=== PATIENT | female | born 1995 | race Caucasian/White ===

== ENCOUNTER 2024-04-13 17:32 | Emergency (ER) | payer OTHER, SELFPAY ==
--- NOTE | 2024-04-13 17:46 | ED.URI ---
HPI - URI/Sore Throat General Chief Complaint: Upper Respiratory Infection Stated Complaint: Throat/nausea Time Seen by Provider: 04/13/24 17:38 History of Present Illness HPI Narrative: Patient presents with a sore throat denies any fever or body aches no trouble swallowing no drooling. Related Data Home Medications Medication Instructions Recorded Confirmed norethindrone 1 mg-ethinyl 1 tablet PO DAILY 04/13/24 04/13/24 estradiol 20 mcg (24)-iron 75 mg (4) tablet (Aurovela 24 Fe) Allergies Allergy/AdvReac Type Severity Reaction Status Date / Time amoxicillin [From Augmentin] Allergy Intermediate Rash Verified 05/15/23 10:00 clavulanic acid Allergy Intermediate Rash Verified 05/15/23 10:00 [From Augmentin] morphine Allergy Intermediate Rash Verified 05/15/23 10:00 Penicillins Allergy Intermediate hives Verified 05/15/23 10:00 Review of Systems Review of Systems: CONSTITUTIONAL: Denies chills, or sweats. Reports fever and generalized body aches EYES: Denies visual changes, redness, or discharge. ENT: Denies otalgia. Reports nasal congestion runny nose and sore throat CARDIOVASCULAR: Denies chest pain, palpitations, or edema. RESPIRATORY: Denies dyspnea. Reports occasional cough GASTROINTESTINAL: Denies abdominal pain, nausea, vomiting, or diarrhea. GENITOURINARY: Denies dysuria or hematuria. SKIN: Denies rash or itching. MUSCULOSKELETAL: Denies back pain, joint pain, or myalgia. Reports generalized body aches NEUROLOGIC: Denies headache, numbness, or weakness. PSYCHIATRIC: Denies anxiety or depression. [facility] Past Medical History Medical History Asthma Hypertension Psoriasis Surgical History Surgical History History of tonsillectomy and adenoidectomy [place] teeth removed Family History Family History Other Hypertension Thyroid disease Social History Social History Smoking status: Current some day smoker Tobacco type: e-cigarettes/vaping Alcohol intake: current Alcohol use details: socially Substance use: never Substance use type: does not use Lack of Transportation: No Lack of Food: Never True Current Housing: I Have Housing Concerned About Future Housing: No Difficulty Paying Gas/Electric Bills: No Difficulty Paying for Meds: No Currently Unemployed: No Education: Trade/Vocational Certificate Living arrangements: with family Occupation/Education: occupation Additional occupation/education comments: [employer] Gender identity (if verbalized by the patient): Female Sexual Orientation (if Verbalized by the Patient): Straight or Heterosexual Comments At time of signature, agree with nursing past medical, surgical, social and family history. There is no relevant family history pertinent to the presenting complaint Exam Narrative: The patient is a well-developed, well-nourished in no acute distress. SKIN: Skin is warm and dry without erythema, swelling or exudate. There is good turgor. No tenting. HEAD: Atraumatic. Normocephalic. No temporal or scalp tenderness. EYES: Moist and bright. Sclera and conjunctivae normal. No discharge. PERRLA. Extraocular motions intact. Gross visual acuity intact. EARS: Pinna is normal shape and contour. Clear external auditory canals. TM pearly chavarria with good cone of light, no erythema or suppuration. Bilateral cerumen noted no gross hearing deficit. NOSE: pink, moist mucosa with good air movement. Clear rhinorrhea without nasal flaring. Septum midline. Mouth: moist mucous membranes. THROAT; mild erythema noted to posterior oropharynx with moderate postnasal drainage. Without exudate or ulceration.. Uvula midline. Normal movement of soft palate. NECK: Supple and nontender with full range of motion without
[2024-04-13 17:50] VITALS: BP 123/88; PULSE 98; RESP 16; TEMP 37.2; O2SAT 100
[2024-04-13 17:57] LABS: EDSTREPNEGPOS1 Presumptive Negative
== END 2024-04-13 18:05 | disposition home or self-care (01) ==
PROVIDERS: Emergency Provider Nurse Practitioner Family
DX: J02.9 Acute pharyngitis, unspecified (principal); F17.290 Nicotine dependence, other tobacco product, uncomplicated; J45.909 Unspecified asthma, uncomplicated; I10 Essential (primary) hypertension; L40.9 Psoriasis, unspecified
CPT/HCPCS: 87070; 87880; 99213; G0463

== ENCOUNTER 2024-09-18 15:35 | Outpatient (CLI) | payer OTHER, SELFPAY ==
[2024-09-18 16:04] LABS: Basophils Absolute Auto 0.1 K/mm3 (0.0-0.1); Basophils Percent Auto 0.5 % (0.2-1.2); Eosinophils Absolute Auto 0.2 K/mm3 (0-0.3); Eosinophils Percent Auto 1.3 % (0-4.4); Hematocrit 41.6 % (37.0-47.0); Hemoglobin 14.1 g/dL (12.0-15.0); Immature Granulocyte Absolute 0.12 K/mm3 (0.00-0.031); Immature Granulocyte Percent A 0.9 % (0-0.5); Lymphocytes Absolute Auto 2.86 K/mm3 (0.9-3.2); Lymphocytes Percent Auto 22.2 % (18.3-44.2); Mean Corpuscular HGB Conc 33.9 g/dl (32-36); Mean Corpuscular Hemoglobin 31.4 pg (26-34); Mean Corpuscular Volume 92.7 fl (80-100); Mean Platelet Volume 10.1 fl (7.4-10.4); Monocytes Absolute Auto 0.8 K/mm3 (0.1-0.6); Monocytes Percent Auto 5.8 % (2.6-8.5); Neutrophils Absolute Auto 8.9 K/mm3 (1.3-6.7); Neutrophils Percent Auto 69.3 % (45.5-73.1); Platelet Count Result 392 k/mm3 (150-375); Red Blood Count 4.49 M/mm3 (4.2-5.4); Red Cell Distribution Width 12.8 % (11.5-14.5); White Blood Count 12.9 K/mm3 (4.5-10.0)
[2024-09-18 16:15] LABS: Alanine Aminotransferase 21 U/L (6-35); Albumin Level 4.7 g/dL (3.5-5.1); Alkaline Phosphatase 61 U/L (38-126); Anion Gap 12 mmol/L (4-12); Aspartate Amino Transferase 22 U/L (14-36); Bilirubin,Total 0.4 mg/dL (0.2-1.3); Blood Urea Nitrogen 9 mg/dL (7-17); Calcium 9.7 mg/dL (8.4-10.2); Carbon Dioxide 21 mmol/L (22-30); Chloride 103 mmol/L (98-107); Estimated Glomerular Filt Rate > 60; Glucose 83 mg/dL (65-110); Potassium 3.7 mmol/L (3.4-5.0); Sodium 136 mmol/L (137-145); Uric Acid 2.4 mg/dL (2.5-7.5)
[2024-09-18 16:47] LABS: Hepatitis B Surface Antigen Negative (Negative); Rubella IgG Antibody 52.4 IU/ML
[2024-09-18 16:56] LABS: HIV 1/2 Ab P24 Ag Result Negative (Negative)
[2024-09-18 17:22] LABS: Thyroid Stimulating Hormone Reflex 0.577 uIU/mL (0.465-4.68)
[2024-09-19 07:49] LABS: Rapid Plasma Reagin Non-Reactive (NonReactive)
[2024-09-19 12:03] LABS: LH 0.2 mIU/mL
[2024-09-20 04:14] LABS: CMV IgG Antibody <0.60 U/mL
== END 2024-09-18 15:36 | disposition home or self-care (01) ==
PROVIDERS: PCP Nurse Practitioner Family; Visit Provider Obstetrics & Gynecology
DX: N94.89 Other specified conditions associated with female genital organs and menstrual cycle (principal); Z87.59 Personal history of other complications of pregnancy, childbirth and the puerperium
CPT/HCPCS: 36415; 80053; 83002; 84443; 84550; 84702; 85025; 86592; 86644; 86703; 86747; 86762; 86787; 86850; 86900; 86901; 87086; 87340; G0432

== ENCOUNTER 2024-11-18 08:37 | Emergency (ER) | payer OTHER, SELFPAY ==
[2024-11-18 08:41] VITALS: BP 130/87; PULSE 117; RESP 17; TEMP 36.4; O2SAT 100
[2024-11-18] MEDS: SODIUM CHLORIDE 0.9% IV 1,000 ML 999 ML IV CONT (08:57)
[2024-11-18] MEDS: ONDANSETRON INJ 4 MG/2 ML VIAL IV PUSH (08:57)
--- OUTSIDE RECORDS SUMMARY | 2024-11-18 08:59 | XMS_ITS | Data Portability ---
Author Organization [facility], Main Office Address [address] [place] [address] Assessment Encounter Date Assessment Date Assessment LastModified by Organization Details LastModified Time 07/24/2023 07/24/2023 [employer]- [employer]- 07/24/23 Call office if worse, ER if life-threatening illness RTC in 1 year and p.r.n. 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, [address], [place], [address], 08/05/2024 10:44:28 CMP, serum or plasma 2023 024 [email or web address] [facility], [address], [place], [address], 08/05/2024 10:44:29 lipid panel, serum 2023 024 [email or web address] [facility], [address], [place], [address], 08/20/2024 12:54:28 TSH + free T4, serum 2023 024 [email or web address] [facility], [address], [place], [address], 08/05/2024 10:44:31 vitamin D, 25-hydrox y, total, serum 2023 024 [employer] [facility], [address], [place], [address], 08/20/2024 12:54:29 hepatitis C virus Ab, serum 2023 024 [employer] [facility], [address], [place], [address], 08/20/2024 12:54:29 HbA1c (hemoglob in A1c), blood 2023 024 [employer] [facility], [address], [place], [address], 08/20/2024 12:54:29 lipid panel, serum 2022 023 NEELA Not available 07/24/2023 18:26:24 CMP, serum or plasma 2022 023 NEELA Not available 07/24/2023 18:26:22 CBC w/ auto diff 2022 023 NEELA Not available 07/24/2023 18:28:06 TSH + free T4, serum 2022 023 Not available 08/09/2023 14:34:54 vitamin B12 + folate, serum or blood 2022 023 Not available 08/09/2023 14:34:54 vitamin D, 25-hydrox y, total, serum 2022 023 Not available 08/09/2023 14:34:54 HbA1c (hemoglob in A1c), blood 2022 023 Not available 08/09/2023 14:34:54 Referral otolaryng ologist referral 2022 023 [email or web address] Slim Dykes MD, [address] [facility], [place], [address], 12/27/2023 09:08:37 dermatolo gist referral 2022 023 [email or web address] Clint Villanueva MD, [address] [facility], [address], [place], [address], 12/27/2023 09:08:38 Procedures None recorded. Surgeries None recorded. Imaging None recorded. Medication Orders None recorded. Patient TargetsNo targets recorded. Patient Instructions Encounter Date Encounter Id Patient Instructions Last Modified By Organization Details Last Modified Time 07/24/2023 [id number] INFLUENZA VACCIN E Recommended today, but patient declined TD/TDAP Recommended today, patient declined Ordered P atient will get at local pharmacy/health department MAMMOGRAM Recommended today, but patient declined Ordered N o screening indicated at this time/ no family history CERVICAL SCREENING/PELVIC EXAMINATION No screening necessary patient is up to date COLORECTAL SCREENING Recommended today, but patient declined Ordered C olonoscopy declined. Cologuard ordered No screening necessary until age 45 DEPRESSION SCREENING Negative BMI Overweight Appropr iate NUTRITION Continue healthy eating & exercise PHYSICAL ACTIVITY Appropriate Recommendation of 10-20 minutes of activity that causes mild breathlessness daily Recommendati on of 30 minutes of daily activity VISION Ordered Recommende d today ALCOHOL USE No alcohol use Occasional/Soc ial Use TOBACCO USE former smoker current tobacco use Patient is not interested in smoking cessation at this time- Handout given GLUCOSE SCREENING Ordered LIPID SCREENING Ordered [email or web address] Not available 07/24/2023 16:18:14 08/05/2024 [id number] Follow up in 6 months Obtain labs Tests: Referral: Recommend: Tetanus vaccine [email or web address] Not available 08/05/2024 10:36:17 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 0 Diabe aftou Boogiee rhonda Crite kayla: <5.7% Consi stent with absen ce of diabe fatou 5.7-6 .4% Consi stent with incre ased risk for diabe fatou (pred iabet es) >OR=6 .5% Consi stent with diabe fatou REFER ENCE: Diabe fatou Care 2016, 39([facility] ppl.1 ):s13 -s22 Not Available [facility] (Lab) [address] [place], [address], 07/23/2021 20:20:55 07/23/20 21 07/23/2021 TSH thyroid-stim ulating hormone 0.766 uIU/m L 0.465- 4.680 Not Available [facility] (Lab) [address] [place], [address], 07/23/2021 17:41:30 07/23/20 21 07/23/2021 T4 FREE free T4 1.07 NG/dL 0.78-2 .19 Not Available [facility] (Lab) [address] [place], [address], 07/23/2021 17:30:51 07/23/20 21 07/23/2021 VITAM IN D 25-HY DROXY [id number] 42.0 NG/mL 30-100 Vitam in D Statu s: Defic ient: <20 ng/mL Insuf ficie nt: 20-29 ng/mL Suffi cient : 30-10 0 ng/mL Not Available [facility] (Lab) [address] [place], [address], 07/23/2021 17:29:50 07/23/20 21 07/23/2021 LIPID PANEL cholesterol 160 mg/dL 140-19 9 NIH DEBBIE NSUS RECOM MENDA TION FOR ALBA STERO L: ADULT CHILD LOW RISK: <200 <170 BORDE RLINE : <200- 239 ----- HIGH RISK: >240 >200 Not Available [facility] (Lab) [address] [place], [address], 07/23/2021 17:16:36 07/23/20 21 07/23/2021 LIPID PANEL triglyceride s 131 mg/dL 0-150 NIH DEBBIE NSUS REPOR T RECOM MENDA TION FOR TRIGL YCERI BATOOL: ADULT CHILD LOW RISK: <150 ----- BODER LINE: 150-1 99 ----- HIGH RISK: >200 ----- Not Available [facility] (Lab) [address] [place], [address], 07/23/2021 17:16:36 07/23/20 21 07/23/2021 LIPID PANEL HDL cholesterol 49 mg/dL 40- Not Available [facility] (Lab) [address] [place], [address], 07/23/2021 17:16:36 07/23/20 21 07/23/2021 LIPID PANEL LDL cholesterol, calculated 85 mg/dL 0-130 NIH DEBBIE NSUS REPOR T RECOM MENDA TIONS FOR LDL: ADULT CHILD LOW RISK <130 <110 (OPTI MAL LDL) <100 ----- DOUGDE RLINE : 130-1 59 ----- HIGH RISK: >160 >130 A TRIGL YCERI DE RESUL T >400 INVAL IDATE S THE CALCU LATIO N FOR LDL FRACT IONAT ION - THE LDL RESUL T WILL NOT BE REPOR ARMOND. Not Available [facility] (Lab) [address] [place], [address], 07/23/2021 17:16:36 07/23/20 21 07/23/2021 COMPR EHENS LEONIDAS METAB OLIC PANEL sodium 143 mmol/ L 137-14 5 Not Available [facility] (Lab) [address] [place], [address], 07/23/2021 17:16:31 07/23/20 21 07/23/2021 COMPR EHENS LEONIDAS METAB OLIC PANEL potassium 4.1 mmol/ L 3.5-5. 1 Not Available [facility] (Lab) [address] [place], [address], 07/23/2021 17:16:31 07/23/20 21 07/23/2021 COMPR EHENS LEONIDAS METAB OLIC PANEL chloride 107 mmol/ L 98-107 Not Available [facility] (Lab) [address] [place], [address], 07/23/2021 17:16:31 07/23/20 21 07/23/2021 COMPR EHENS LEONIDAS METAB OLIC PANEL carbon dioxide 25 mmol/ L 22-30 Not Available [facility] (Lab) [address] [place], [address], 07/23/2021 17:16:31 07/23/20 21 07/23/2021 COMPR EHENS LEONIDAS METAB OLIC PANEL agap 15.1 mmol/ L 14-22 Not Available [facility] (Lab) [address] [place], [address], 07/23/2021 17:16:31 07/23/20 21 07/23/2021 COMPR EHENS LEONIDAS METAB OLIC PANEL glucose 77 mg/dL 70-99 Not Available [facility] (Lab) [address] [place], [address], 07/23/2021 17:16:31 07/23/20 21 07/23/2021 COMPR EHENS LEONIDAS METAB OLIC PANEL BUN 13 mg/dL 8-19 Not Available [facility] (Lab) [address] [place], [address], 07/23/2021 17:16:31 07/23/20 21 07/23/2021 COMPR EHENS LEONIDAS METAB OLIC PANEL creatinine 0.67 mg/dL 0.66-1 .25 Not Available [facility] (Lab) [address] [place], [address], 07/23/2021 17:16:31 07/23/20 21 07/23/2021 COMPR EHENS LEONIDAS METAB OLIC PANEL GFR >60 Refer ence Range : Redmon ge GFR Healt hy Adult : >60 mL/mi n/1.7 3 m2 Chron ic Kidne y Disea se: 15-60 mL/mi n/1.7 3 m2 Kidne y Failu re: <15/m L/min /1.73 m2 www.n iddk. nih.g ov The MDRD study equat ion has not been valid ated in child anjana <18 years of age; pregn ant women ; the elder ly >85 years of age; or in some racia l or ethni c subgr oups, such as Hispa nics. Outsi de the valid ated yojana eters , estim ated GFR is less accur ate, requi ring clini elizabeth judgm ent on a case- by-ca se basis . Clini elizabeth inter preta tion for other races and ages must be made by the clini lj. The MDRD study equat ion has not been valid ated for the evalu ation of serum creat inine relat ed to nutri vidya l statu s or medic ation usage . For perso ns <18 years of age, a pedia tric GFR calcu lator is avail able on the [facility] websi te: https ://smooth padron.alessandro boston.o connor/pr pebblesess ional s/kdo qi/gf r_cal culat or Not Available [facility] (Lab) [address] [place], [address], 07/23/2021 17:16:31 07/23/20 21 07/23/2021 COMPR EHENS LEONIDAS METAB OLIC PANEL alkaline phosphatase 64 U/L 38-126 Not Available [facility] (Lab) [address] [place], [address], 07/23/2021 17:16:31 07/23/20 21 07/23/2021 COMPR EHENS LEONIDAS METAB OLIC PANEL alanine aminotransfe rase 17 U/L 0-35 Not Available [facility] (Lab) [address] [place], [address], 07/23/2021 17:16:31 07/23/20 21 07/23/2021 COMPR EHENS LEONIDAS METAB OLIC PANEL aspartate aminotransfe rase 22 U/L 15-37 Not Available [facility] (Lab) [address] [place], [address], 07/23/2021 17:16:31 07/23/20 21 07/23/2021 COMPR EHENS LEONIDAS METAB OLIC PANEL bilirubin, total 0.30 mg/dL 0.20-1 .30 Not Available [facility] (Lab) [address] [place], [address], 07/23/2021 17:16:31 07/23/20 21 07/23/2021 COMPR EHENS LEONIDAS METAB OLIC PANEL calcium 10.4 mg/dL 8.4-10 .2 high Not Available [facility] (Lab) [address] [place], [address], 07/23/2021 17:16:31 07/23/20 21 07/23/2021 COMPR EHENS LEONIDAS METAB OLIC PANEL total protein 7.7 g/dL 6.3-8. 2 Not Available [facility] (Lab) [address] [place], [address], 07/23/2021 17:16:31 07/23/20 21 07/23/2021 COMPR EHENS LEONIDAS METAB OLIC PANEL albumin 4.8 g/dL 3.4-5. 0 Not Available [facility] (Lab) [address] [place], [address], 07/23/2021 17:16:31 07/23/20 21 07/23/2021 COMPR EHENS LEONIDAS METAB OLIC PANEL globulin 2.9 g/dL 2.6-4. 2 Not Available [facility] (Lab) [address] [place], [address], 07/23/2021 17:16:31 07/23/20 21 07/23/2021 COMPR EHENS LEONIDAS METAB OLIC PANEL A/G ratio 1.7 ratio 1.0-2. 0 Not Available [facility] (Lab) [address] [place], [address], 07/23/2021 17:16:31 07/23/20 21 07/23/2021 URINA LYSIS COMPL ETE/I RIS W/RFX color yellow Not Available [facility] (Lab) [address] [place], [address], 07/23/2021 16:46:45 07/23/20 21 07/23/2021 URINA LYSIS COMPL ETE/I RIS W/RFX appear turbid abnormal Not Available [facility] (Lab) [address] [place], [address], 07/23/2021 16:46:45 07/23/20 21 07/23/2021 URINA LYSIS COMPL ETE/I RIS W/RFX specific gravity 1.026 1.001- 1.030 Not Available [facility] (Lab) [address] [place], [address], 07/23/2021 16:46:45 07/23/20 21 07/23/2021 URINA LYSIS COMPL ETE/I RIS W/RFX pH 6.5 pH_un its 5.0-9. 0 Not Available [facility] (Lab) [address] [place], [address], 07/23/2021 16:46:45 07/23/20 21 07/23/2021 URINA LYSIS COMPL ETE/I RIS W/RFX leukocytes 75 jose/u L negati ve- abnormal Not Available [facility] (Lab) [address] [place], [address], 07/23/2021 16:46:45 07/23/20 21 07/23/2021 URINA LYSIS COMPL ETE/I RIS W/RFX nitrite negati ve negati ve- Not Available [facility] (Lab) [address] [place], [address], 07/23/2021 16:46:45 07/23/20 21 07/23/2021 URINA LYSIS COMPL ETE/I RIS W/RFX protein 10 mg/dL negati ve- abnormal Not Available [facility] (Lab) [address] [place], [address], 07/23/2021 16:46:45 07/23/20 21 07/23/2021 URINA LYSIS COMPL ETE/I RIS W/RFX glucose normal mg/dL normal - Not Available [facility] (Lab) [address] [place], [address], 07/23/2021 16:46:45 07/23/20 21 07/23/2021 URINA LYSIS COMPL ETE/I RIS W/RFX ketones negati ve mg/dL negati ve- Not Available [facility] (Lab) [address] [place], [address], 07/23/2021 16:46:45 07/23/20 21 07/23/2021 URINA LYSIS COMPL ETE/I RIS W/RFX urobilinogen normal mg/dL normal - Not Available [facility] (Lab) [address] [place], [address], 07/23/2021 16:46:45 07/23/20 21 07/23/2021 URINA LYSIS COMPL ETE/I RIS W/RFX bilirubin negati ve mg/dL negati ve- Not Available [facility] (Lab) [address] [place], [address], 07/23/2021 16:46:45 07/23/20 21 07/23/2021 URINA LYSIS COMPL ETE/I RIS W/RFX blood negati ve mg/dL negati ve- Not Available [facility] (Lab) [address] [place], [address], 07/23/2021 16:46:45 07/23/20 21 07/23/2021 URINA LYSIS COMPL ETE/I RIS W/RFX white blood cells 0-8 /i??h pfi?? 0-8 Not Available [facility] (Lab) [address] [place], [address], 07/23/2021 16:46:45 07/23/20 21 07/23/2021 URINA LYSIS COMPL ETE/I RIS W/RFX red blood cells 5-10 /i??h pfi?? 0-4 abnormal Not Available [facility] (Lab) [address] [place], [address], 07/23/2021 16:46:45 07/23/20 21 07/23/2021 URINA LYSIS COMPL ETE/I RIS W/RFX bacteria many abnormal Not Available [facility] (Lab) [address] [place], [address], 07/23/2021 16:46:45 07/23/20 21 07/23/2021 URINA LYSIS COMPL ETE/I RIS W/RFX mucous few /i??l pfi?? abnormal Not Available [facility] (Lab) [address] [place], [address], 07/23/2021 16:46:45 07/23/20 21 07/23/2021 URINA LYSIS COMPL ETE/I RIS W/RFX squamous epithelial packed field /i??l pfi?? abnormal Not Available [facility] (Lab) [address] [facility] [place], [address], 07/23/2021 16:46:45 07/23/20 21 07/23/2021 URINA LYSIS COMPL ETE/I RIS W/RFX budding yeast occasi onal /i??h pfi?? abnormal Not Available [facility] (Lab) [address] [place], [address], 07/23/2021 16:46:45 07/23/20 21 07/23/2021 CBC/C OMPLE TE BLD COUNT W/DIF F white blood cells 9.9 x10'3 /uL 4.2-10 .8 Not Available [facility] (Lab) [address] [place], [address], 07/23/2021 16:33:19 07/23/20 21 07/23/2021 CBC/C OMPLE TE BLD COUNT W/DIF F red blood cells 4.65 x10'6 /uL 3.80-5 .20 Not Available [facility] (Lab) [address] [place], [address], 07/23/2021 16:33:19 07/23/20 21 07/23/2021 CBC/C OMPLE TE BLD COUNT W/DIF F hemoglobin 14.4 g/dL 12.0-1 5.6 Not Available [facility] (Lab) [address] [place], [address], 07/23/2021 16:33:19 07/23/20 21 07/23/2021 CBC/C OMPLE TE BLD COUNT W/DIF F hematocrit 42.7 % 35.7-4 5.7 Not Available [facility] (Lab) [address] [place], [address], 07/23/2021 16:33:19 07/23/20 21 07/23/2021 CBC/C OMPLE TE BLD COUNT W/DIF F mean red cell volume 91.8 fL 82.0-9 9.0 Not Available [facility] (Lab) [address] [place], [address], 07/23/2021 16:33:19 07/23/20 21 07/23/2021 CBC/C OMPLE TE BLD COUNT W/DIF F mean red cell hemoglobin 31.0 pg 27.0-3 3.0 Not Available [facility] (Lab) [address] [place], [address], 07/23/2021 16:33:19 07/23/20 21 07/23/2021 CBC/C OMPLE TE BLD COUNT W/DIF F mean RBC HGB concentratio n 33.7 g/dL 31.0-3 6.0 Not Available [facility] (Lab) [address] [place], [address], 07/23/2021 16:33:19 07/23/20 21 07/23/2021 CBC/C OMPLE TE BLD COUNT W/DIF F red cell distribution width 12.4 % 11.8-1 5.5 Not Available [facility] (Lab) [address] [place], [address], 07/23/2021 16:33:19 07/23/20 21 07/23/2021 CBC/C OMPLE TE BLD COUNT W/DIF F platelets 485 x10'3 /uL 150-40 0 high Not Available [facility] (Lab) [address] [place], [address], 07/23/2021 16:33:19 07/23/20 21 07/23/2021 CBC/C OMPLE TE BLD COUNT W/DIF F mean platelet volume 10.8 fL 9.0-12 .4 Not Available [facility] (Lab) [address] [place], [address], 07/23/2021 16:33:19 07/23/20 21 07/23/2021 CBC/C OMPLE TE BLD COUNT W/DIF F neutrophils 51.6 % 39.0-7 2.0 Not Available [facility] (Lab) [address] [place], [address], 07/23/2021 16:33:19 07/23/20 21 07/23/2021 CBC/C OMPLE TE BLD COUNT W/DIF F lymphocytes 36.8 % 16.0-4 7.0 Not Available [facility] (Lab) [address] [place], [address], 07/23/2021 16:33:19 07/23/20 21 07/23/2021 CBC/C OMPLE TE BLD COUNT W/DIF F monocytes 6.3 % 5.0-12 .0 Not Available [facility] (Lab) [address] [place], [address], 07/23/2021 16:33:19 07/23/20 21 07/23/2021 CBC/C OMPLE TE BLD COUNT W/DIF F eosinophils 4.2 % 1.0-7. 0 Not Available [facility] (Lab) [address] [place], [address], 07/23/2021 16:33:19 07/23/20 21 07/23/2021 CBC/C OMPLE TE BLD COUNT W/DIF F basophils 0.8 % 0.0-2. 0 Not Available [facility] (Lab) [address] [place], [address], 07/23/2021 16:33:19 07/23/20 21 07/23/2021 CBC/C OMPLE TE BLD COUNT W/DIF F immature granulocytes 0.3 % 0.00-0 .50 Not Available [facility] (Lab) [address] [place], [address], 07/23/2021 16:33:19 07/23/20 21 07/23/2021 CBC/C OMPLE TE BLD COUNT W/DIF F neutrophils, absolute count 5.11 x10'3 /uL 1.5-8. 0 Not Available [facility] (Lab) [address] [place], [address], 07/23/2021 16:33:19 07/23/20 21 07/23/2021 CBC/C OMPLE TE BLD COUNT W/DIF F lymphocytes, absolute count 3.65 x10'3 /uL 1.07-3 .43 high Not Available [facility] (Lab) [address] [place], [address], 07/23/2021 16:33:19 07/23/20 21 07/23/2021 CBC/C OMPLE TE BLD COUNT W/DIF F monocytes, absolute count 0.62 x10'3 /uL 0.29-0 .99 Not Available [facility] (Lab) [address] [place], [address], 07/23/2021 16:33:19 07/23/20 21 07/23/2021 CBC/C OMPLE TE BLD COUNT W/DIF F eosinophils, absolute count 0.42 x10'3 /uL 0.02-0 .53 Not Available [facility] (Lab) [address] [place], [address], 07/23/2021 16:33:19 07/23/20 21 07/23/2021 CBC/C OMPLE TE BLD COUNT W/DIF F basophils, absolute count 0.08 x10'3 /uL 0.01-0 .08 Not Available [facility] (Lab) [address] [place], [address], 07/23/2021 16:33:19 07/23/20 21 07/23/2021 CBC/C OMPLE TE BLD COUNT W/DIF F immature granulocytes ,absolute 0.03 x10'3 /uL 0.00-0 .05 Not Available [facility] (Lab) [address] [place], [address], 07/23/2021 16:33:19 07/23/20 21 07/23/2021 CBC/C OMPLE TE BLD COUNT W/DIF F nucleated red blood cells 0.0 % -0 Not Available [facility] (Lab) [address] [place], [address], 07/23/2021 16:33:19 07/23/20 21 07/23/2021 CBC/C OMPLE TE BLD COUNT W/DIF F NRBC# 0.00 x10'3 /uL Not Available [facility] (Lab) [address] [place], [address], 07/23/2021 16:33:19 07/18/20 22 07/18/2022 HEMOG LOBIN A1C HA1C 4.6 % 4.0-6. 0 Diabe fatou Scree rhonda Crite kayla: <5.7% Consi stent with absen ce of diabe fatou 5.7-6 .4% Consi stent with incre ased risk for diabe fatou (pred iabet es) >OR=6 .5% Consi stent with diabe fatou REFER ENCE: Diabe fatou Care 2016, 39([facility] ppl.1 ):s13 -s22 Not Available [facility] (Lab) [address] [place], [address], 07/18/2022 20:26:20 07/18/20 22 07/18/2022 VITAM IN D 25-HY DROXY vd25oh 26.0 NG/mL 30-100 low Vitam in D Statu s: Defic ient: <20 ng/mL Insuf ficie nt: 20-29 ng/mL Suffi cient : 30-10 0 ng/mL Not Available [facility] (Lab) [address] [place], [address], 07/18/2022 19:16:51 07/18/20 22 07/18/2022 TSH W/REF GT FT4 TSH with reflex free T4 0.876 uIU/m L 0.465- 4.680 Not Available [facility] (Lab) [address] [place], [address], 07/18/2022 19:00:27 07/18/20 22 07/18/2022 URINA LYSIS COMPL ETE/I RIS W/RFX color light- yellow Not Available [facility] (Lab) [address] [place], [address], 07/18/2022 18:42:33 07/18/20 22 07/18/2022 URINA LYSIS COMPL ETE/I RIS W/RFX appear clear Not Available [facility] (Lab) [address] [place], [address], 07/18/2022 18:42:33 07/18/20 22 07/18/2022 URINA LYSIS COMPL ETE/I RIS W/RFX specific gravity 1.028 1.001- 1.030 Not Available [facility] (Lab) [address] [place], [address], 07/18/2022 18:42:33 07/18/20 22 07/18/2022 URINA LYSIS COMPL ETE/I RIS W/RFX pH 6.0 pH_un its 5.0-9. 0 Not Available [facility] (Lab) [address] [place], [address], 07/18/2022 18:42:33 07/18/20 22 07/18/2022 URINA LYSIS COMPL ETE/I RIS W/RFX leukocytes negati ve jose/u L negati ve- Not Available [facility] (Lab) [address] [place], [address], 07/18/2022 18:42:33 07/18/20 22 07/18/2022 URINA LYSIS COMPL ETE/I RIS W/RFX nitrite negati ve negati ve- Not Available [facility] (Lab) [address] [place], [address], 07/18/2022 18:42:33 07/18/20 22 07/18/2022 URINA LYSIS COMPL ETE/I RIS W/RFX protein negati ve mg/dL negati ve- Not Available [facility] (Lab) [address] [place], [address], 07/18/2022 18:42:33 07/18/20 22 07/18/2022 URINA LYSIS COMPL ETE/I RIS W/RFX glucose normal mg/dL normal - Not Available [facility] (Lab) [address] [place], [address], 07/18/2022 18:42:33 07/18/20 22 07/18/2022 URINA LYSIS COMPL ETE/I RIS W/RFX ketones negati ve mg/dL negati ve- Not Available [facility] (Lab) [address] [place], [address], 07/18/2022 18:42:33 07/18/20 22 07/18/2022 URINA LYSIS COMPL ETE/I RIS W/RFX urobilinogen normal mg/dL normal - Not Available [facility] (Lab) [address] [place], [address], 07/18/2022 18:42:33 07/18/20 22 07/18/2022 URINA LYSIS COMPL ETE/I RIS W/RFX bilirubin negati ve mg/dL negati ve- Not Available [facility] (Lab) [address] [place], [address], 07/18/2022 18:42:33 07/18/20 22 07/18/2022 URINA LYSIS COMPL ETE/I RIS W/RFX blood 0.03 mg/dL negati ve- abnormal Not Available [facility] (Lab) [address] [place], [address], 07/18/2022 18:42:33 07/18/20 22 07/18/2022 URINA LYSIS COMPL ETE/I RIS W/RFX white blood cells 0-8 /i??h pfi?? 0-8 Not Available [facility] (Lab) [address] [place], [address], 07/18/2022 18:42:33 07/18/20 22 07/18/2022 URINA LYSIS COMPL ETE/I RIS W/RFX red blood cells 0-4 /i??h pfi?? 0-4 Not Available [facility] (Lab) [address] [place], [address], 07/18/2022 18:42:33 07/18/20 22 07/18/2022 URINA LYSIS COMPL ETE/I RIS W/RFX bacteria none Not Available [facility] (Lab) [address] [place], [address], 07/18/2022 18:42:33 07/18/20 22 07/18/2022 URINA LYSIS COMPL ETE/I RIS W/RFX mucous occasi onal /i??l pfi?? abnormal Not Available [facility] (Lab) [address] [place], [address], 07/18/2022 18:42:33 07/18/20 22 07/18/2022 URINA LYSIS COMPL ETE/I RIS W/RFX squamous epithelial few /i??l pfi?? abnormal Not Available [facility] (Lab) [address] [place], [address], 07/18/2022 18:42:33 07/18/20 22 07/18/2022 LIPID PANEL cholesterol 158 mg/dL 140-19 9 NIH DEBBIE NSUS RECOM MENDA TION FOR ALBA STERO L: ADULT CHILD LOW RISK: <200 <170 BORDE RLINE : <200- 239 ----- HIGH RISK: >240 >200 Not Available [facility] (Lab) [address] [place], [address], 07/18/2022 18:39:28 07/18/20 22 07/18/2022 LIPID PANEL triglyceride s 195 mg/dL 0-150 high NIH DEBBIE NSUS REPOR T RECOM MENDA TION FOR TRIGL YCERI BATOOL: ADULT CHILD LOW RISK: <150 ----- BODER LINE: 150-1 99 ----- HIGH RISK: >200 ----- Not Available [facility] (Lab) [address] [place], [address], 07/18/2022 18:39:28 07/18/20 22 07/18/2022 LIPID PANEL HDL cholesterol 50 mg/dL 40- Not Available [facility] (Lab) [address] [place], [address], 07/18/2022 18:39:28 07/18/20 22 07/18/2022 LIPID PANEL LDL cholesterol, calculated 69 mg/dL 0-130 NIH DEBBIE NSUS REPOR T RECOM MENDA TIONS FOR LDL: ADULT CHILD LOW RISK <130 <110 (OPTI MAL LDL) <100 ----- KAREN RLINE : 130-1 59 ----- HIGH RISK: >160 >130 A TRIGL YCERI DE RESUL T >400 INVAL IDATE S THE CALCU LATIO N FOR LDL FRACT IONAT ION - THE LDL RESUL T WILL NOT BE REPOR ARMOND. Not Available [facility] (Lab) [address] [place], [address], 07/18/2022 18:39:28 07/18/20 22 07/18/2022 COMPR EHENS LEONIDAS METAB OLIC PANEL sodium 139 mmol/ L 137-14 5 Not Available [facility] (Lab) [address] [place], [address], 07/18/2022 18:39:24 07/18/20 22 07/18/2022 COMPR EHENS LEONIDAS METAB OLIC PANEL potassium 4.1 mmol/ L 3.5-5. 1 Not Available [facility] (Lab) [address] [place], [address], 07/18/2022 18:39:24 07/18/20 22 07/18/2022 COMPR EHENS LEONIDAS METAB OLIC PANEL chloride 104 mmol/ L 98-107 Not Available [facility] (Lab) [address] [place], [address], 07/18/2022 18:39:24 07/18/20 22 07/18/2022 COMPR EHENS LEONIDAS METAB OLIC PANEL carbon dioxide 26 mmol/ L 22-30 Not Available [facility] (Lab) [address] [place], [address], 07/18/2022 18:39:24 07/18/20 22 07/18/2022 COMPR EHENS LEONIDAS METAB OLIC PANEL anion gap 13.1 mmol/ L 14-22 low Not Available [facility] (Lab) [address] [place], [address], 07/18/2022 18:39:24 07/18/20 22 07/18/2022 COMPR EHENS LEONIDAS METAB OLIC PANEL glucose 78 mg/dL 70-99 Not Available [facility] (Lab) [address] [place], [address], 07/18/2022 18:39:24 07/18/20 22 07/18/2022 COMPR EHENS LEONIDAS METAB OLIC PANEL BUN 14 mg/dL 8-19 Not Available [facility] (Lab) [address] [place], [address], 07/18/2022 18:39:24 07/18/20 22 07/18/2022 COMPR EHENS LEONIDAS METAB OLIC PANEL creatinine 0.61 mg/dL 0.66-1 .25 low Not Available [facility] (Lab) [address] [place], [address], 07/18/2022 18:39:24 07/18/20 22 07/18/2022 COMPR EHENS LEONIDAS METAB OLIC PANEL GFR >60 Refer ence Range : Redmon ge GFR Healt hy Adult : >60 mL/mi n/1.7 3 m2 Chron ic Kidne y Disea se: 15-60 mL/mi n/1.7 3 m2 Kidne y Failu re: <15/m L/min /1.73 m2 www.n iddk. nih.g ov The MDRD study equat ion has not been valid ated in child anjana <18 years of age; pregn ant women ; the elder ly >85 years of age; or in some racia l or ethni c subgr oups, such as Hispa nics. Outsi de the valid ated yojana eters , estim ated GFR is less accur ate, requi ring clini elizabeth judgm ent on a case- by-ca se basis . Clini elizabeth inter preta tion for other races and ages must be made by the clini lj. The MDRD study equat ion has not been valid ated for the evalu ation of serum creat inine relat ed to nutri vidya l statu s or medic ation usage . For perso ns <18 years of age, a pedia tric GFR calcu lator is avail able on the [facility] websi te: https :[email or web address] [email or web address] boston.o rg/pr ofess ional s/kdo qi/gf r_cal culat or Not Available [facility] (Lab) [address] [place], [address], 07/18/2022 18:39:24 07/18/20 22 07/18/2022 COMPR EHENS LEONIDAS METAB OLIC PANEL alkaline phosphatase 53 U/L 38-126 Not Available [facility] (Lab) [address] [place], [address], 07/18/2022 18:39:24 07/18/20 22 07/18/2022 COMPR EHENS LEONIDAS METAB OLIC PANEL alanine aminotransfe rase 21 U/L 0-35 Not Available [facility] (Lab) [address] [place], [address], 07/18/2022 18:39:24 07/18/20 22 07/18/2022 COMPR EHENS LEONIDAS METAB OLIC PANEL aspartate aminotransfe rase 24 U/L 15-37 Not Available [facility] (Lab) [address] [place], [address], 07/18/2022 18:39:24 07/18/20 22 07/18/2022 COMPR EHENS LEONIDAS METAB OLIC PANEL bilirubin, total 0.50 mg/dL 0.20-1 .30 Not Available [facility] (Lab) [address] [place], [address], 07/18/2022 18:39:24 07/18/20 22 07/18/2022 COMPR EHENS LEONIDAS METAB OLIC PANEL calcium 9.7 mg/dL 8.4-10 .2 Not Available [facility] (Lab) [address] [place], [address], 07/18/2022 18:39:24 07/18/20 22 07/18/2022 COMPR EHENS LEONIDAS METAB OLIC PANEL total protein 7.9 g/dL 6.3-8. 2 Not Available [facility] (Lab) [address] [place], [address], 07/18/2022 18:39:24 07/18/20 22 07/18/2022 COMPR EHENS LEONIDAS METAB OLIC PANEL albumin 4.7 g/dL 3.4-5. 0 Not Available [facility] (Lab) [address] [place], [address], 07/18/2022 18:39:24 07/18/20 22 07/18/2022 COMPR EHENS LEONIDAS METAB OLIC PANEL globulin 3.2 g/dL 2.6-4. 2 Not Available [facility] (Lab) [address] [place], [address], 07/18/2022 18:39:24 07/18/20 22 07/18/2022 COMPR EHENS LEONIDAS METAB OLIC PANEL A/G ratio 1.5 ratio 1.0-2. 0 Not Available [facility] (Lab) [address] [place], [address], 07/18/2022 18:39:24 07/18/20 22 07/18/2022 CBC/C OMPLE TE BLD COUNT W/DIF F white blood cells 8.7 x10'3 /uL 4.2-10 .8 Not Available [facility] (Lab) [address] [place], [address], 07/18/2022 18:12:51 07/18/20 22 07/18/2022 CBC/C OMPLE TE BLD COUNT W/DIF F red blood cells 4.52 x10'6 /uL 3.80-5 .20 Not Available [facility] (Lab) [address] [place], [address], 07/18/2022 18:12:51 07/18/20 22 07/18/2022 CBC/C OMPLE TE BLD COUNT W/DIF F hemoglobin 14.0 g/dL 12.0-1 5.6 Not Available [facility] (Lab) [address] [place], [address], 07/18/2022 18:12:51 07/18/20 22 07/18/2022 CBC/C OMPLE TE BLD COUNT W/DIF F hematocrit 42.2 % 35.7-4 5.7 Not Available [facility] (Lab) [address] [place], [address], 07/18/2022 18:12:51 07/18/20 22 07/18/2022 CBC/C OMPLE TE BLD COUNT W/DIF F mean red cell volume 93.4 fL 82.0-9 9.0 Not Available [facility] (Lab) [address] [place], [address], 07/18/2022 18:12:51 07/18/20 22 07/18/2022 CBC/C OMPLE TE BLD COUNT W/DIF F mean red cell hemoglobin 31.0 pg 27.0-3 3.0 Not Available [facility] (Lab) [address] [place], [address], 07/18/2022 18:12:51 07/18/20 22 07/18/2022 CBC/C OMPLE TE BLD COUNT W/DIF F mean RBC HGB concentratio n 33.2 g/dL 31.0-3 6.0 Not Available [facility] (Lab) [address] [place], [address], 07/18/2022 18:12:51 07/18/20 22 07/18/2022 CBC/C OMPLE TE BLD COUNT W/DIF F red cell distribution width 12.7 % 11.8-1 5.5 Not Available [facility] (Lab) [address] [place], [address], 07/18/2022 18:12:51 07/18/20 22 07/18/2022 CBC/C OMPLE TE BLD COUNT W/DIF F platelets 445 x10'3 /uL 150-40 0 high Not Available [facility] (Lab) [address] [place], [address], 07/18/2022 18:12:51 07/18/20 22 07/18/2022 CBC/C OMPLE TE BLD COUNT W/DIF F mean platelet volume 11.0 fL 9.0-12 .4 Not Available [facility] (Lab) [address] [place], [address], 07/18/2022 18:12:51 07/18/20 22 07/18/2022 CBC/C OMPLE TE BLD COUNT W/DIF F neutrophils 53.7 % 39.0-7 2.0 Not Available [facility] (Lab) [address] [place], [address], 07/18/2022 18:12:51 07/18/20 22 07/18/2022 CBC/C OMPLE TE BLD COUNT W/DIF F lymphocytes 34.6 % 16.0-4 7.0 Not Available [facility] (Lab) [address] [place], [address], 07/18/2022 18:12:51 07/18/20 22 07/18/2022 CBC/C OMPLE TE BLD COUNT W/DIF F monocytes 5.9 % 5.0-12 .0 Not Available [facility] (Lab) [address] [place], [address], 07/18/2022 18:12:51 07/18/20 22 07/18/2022 CBC/C OMPLE TE BLD COUNT W/DIF F eosinophils 4.8 % 1.0-7. 0 Not Available [facility] (Lab) [address] [place], [address], 07/18/2022 18:12:51 07/18/20 22 07/18/2022 CBC/C OMPLE TE BLD COUNT W/DIF F basophils 0.7 % 0.0-2. 0 Not Available [facility] (Lab) [address] [place], [address], 07/18/2022 18:12:51 07/18/20 22 07/18/2022 CBC/C OMPLE TE BLD COUNT W/DIF F immature granulocytes 0.3 % 0.00-0 .50 Not Available [facility] (Lab) [address] [place], [address], 07/18/2022 18:12:51 07/18/20 22 07/18/2022 CBC/C OMPLE TE BLD COUNT W/DIF F neutrophils, absolute count 4.65 x10'3 /uL 1.5-8. 0 Not Available [facility] (Lab) [address] [place], [address], 07/18/2022 18:12:51 07/18/20 22 07/18/2022 CBC/C OMPLE TE BLD COUNT W/DIF F lymphocytes, absolute count 3.00 x10'3 /uL 1.07-3 .43 Not Available [facility] (Lab) [address] [place], [address], 07/18/2022 18:12:51 07/18/20 22 07/18/2022 CBC/C OMPLE TE BLD COUNT W/DIF F monocytes, absolute count 0.51 x10'3 /uL 0.29-0 .99 Not Available [facility] (Lab) [address] [place], [address], 07/18/2022 18:12:51 07/18/20 22 07/18/2022 CBC/C OMPLE TE BLD COUNT W/DIF F eosinophils, absolute count 0.42 x10'3 /uL 0.02-0 .53 Not Available [facility] (Lab) [address] [place], [address], 07/18/2022 18:12:51 07/18/20 22 07/18/2022 CBC/C OMPLE TE BLD COUNT W/DIF F basophils, absolute count 0.06 x10'3 /uL 0.01-0 .08 Not Available [facility] (Lab) [address] [place], [address], 07/18/2022 18:12:51 07/18/20 22 07/18/2022 CBC/C OMPLE TE BLD COUNT W/DIF F immature granulocytes ,absolute 0.03 x10'3 /uL 0.00-0 .05 Not Available [facility] (Lab) [address] [place], [address], 07/18/2022 18:12:51 07/18/20 22 07/18/2022 CBC/C OMPLE TE BLD COUNT W/DIF F nucleated red blood cells 0.0 % -0 Not Available [facility] (Lab) [address] [place], [address], 07/18/2022 18:12:51 07/18/20 22 07/18/2022 CBC/C OMPLE TE BLD COUNT W/DIF F NRBC# 0.00 x10'3 /uL Not Available [facility] (Lab) [address] [place], [address], 07/18/2022 18:12:51 07/24/20 23 07/24/2023 COMPR EHENS LEONIDAS METAB OLIC PANEL sodium 141 mmol/ L 137-14 5 Not Available [facility] (Lab) [address] [place], [address], 07/24/2023 18:26:21 07/24/20 23 07/24/2023 COMPR EHENS LEONIDAS METAB OLIC PANEL potassium 4.1 mmol/ L 3.5-5. 1 Not Available [facility] (Lab) [address] [place], [address], 07/24/2023 18:26:21 07/24/20 23 07/24/2023 COMPR EHENS LEONIDAS METAB OLIC PANEL chloride 105 mmol/ L 98-107 Not Available [facility] (Lab) [address] [place], [address], 07/24/2023 18:26:21 07/24/20 23 07/24/2023 COMPR EHENS LEONIDAS METAB OLIC PANEL carbon dioxide 24 mmol/ L 22-30 Not Available [facility] (Lab) [address] [place], [address], 07/24/2023 18:26:21 07/24/20 23 07/24/2023 COMPR EHENS LEONIDAS METAB OLIC PANEL anion gap 16.1 mmol/ L 14-22 Not Available [facility] (Lab) [address] [place], [address], 07/24/2023 18:26:21 07/24/20 23 07/24/2023 COMPR EHENS LEONIDAS METAB OLIC PANEL glucose 92 mg/dL 70-99 Not Available [facility] (Lab) [address] [place], [address], 07/24/2023 18:26:21 07/24/20 23 07/24/2023 COMPR EHENS LEONIDAS METAB OLIC PANEL BUN 8 mg/dL 8-19 Not Available [facility] (Lab) [address] [place], [address], 07/24/2023 18:26:21 07/24/20 23 07/24/2023 COMPR EHENS LEONIDAS METAB OLIC PANEL creatinine 0.54 mg/dL 0.66-1 .25 low Not Available [facility] (Lab) [address] [place], [address], 07/24/2023 18:26:21 07/24/20 23 07/24/2023 COMPR EHENS LEONIDAS METAB OLIC PANEL GFR >60 Refer ence Range : Redmon ge GFR Healt hy Adult : >60 mL/mi n/1.7 3 m2 Chron ic Kidne y Disea se: 15-60 mL/mi n/1.7 3 m2 Kidne y Failu re: <15/m L/min /1.73 m2 www.n iddk. nih.g ov The MDRD study equat ion has not been valid ated in child anjana <18 years of age; pregn ant women ; the elder ly >85 years of age; or in some racia l or ethni c subgr oups, such as [facility] nics. Outsi de the valid ated yojana eters , estim ated GFR is less accur ate, requi ring clini elizabeth judgm ent on a case- by-ca se basis . Clini elizabeth inter preta tion for other races and ages must be made by the clini lj. The MDRD study equat ion has not been valid ated for the evalu ation of serum creat inine relat ed to nutri vidya l statu s or medic ation usage . For perso ns <18 years of age, a pedia tric GFR calcu lator is avail able on the [facility] websi te: https :[email or web address] yaya boston.o rg/pr ofess ional s/kdo qi/gf r_cal culat or Not Available [facility] (Lab) [address] [place], [address], 07/24/2023 18:26:21 07/24/20 23 07/24/2023 COMPR EHENS LEONIDAS METAB OLIC PANEL alkaline phosphatase 50 U/L 38-126 Not Available [facility] (Lab) [address] [place], [address], 07/24/2023 18:26:21 07/24/20 23 07/24/2023 COMPR EHENS LEONIDAS METAB OLIC PANEL alanine aminotransfe rase 19 U/L 0-35 Not Available [facility] (Lab) [address] [place], [address], 07/24/2023 18:26:21 07/24/20 23 07/24/2023 COMPR EHENS LEONIDAS METAB OLIC PANEL aspartate aminotransfe rase 22 U/L 15-37 Not Available [facility] (Lab) [address] [place], [address], 07/24/2023 18:26:21 07/24/20 23 07/24/2023 COMPR EHENS LEONIDAS METAB OLIC PANEL bilirubin, total 0.30 mg/dL 0.20-1 .30 Not Available [facility] (Lab) [address] [place], [address], 07/24/2023 18:26:21 07/24/20 23 07/24/2023 COMPR EHENS LEONIDAS METAB OLIC PANEL calcium 10.0 mg/dL 8.4-10 .2 Not Available [facility] (Lab) [address] [place], [address], 07/24/2023 18:26:21 07/24/20 23 07/24/2023 COMPR EHENS LEONIDAS METAB OLIC PANEL total protein 7.9 g/dL 6.3-8. 2 Not Available [facility] (Lab) [address] [place], [address], 07/24/2023 18:26:21 07/24/20 23 07/24/2023 COMPR EHENS LEONIDAS METAB OLIC PANEL albumin 4.5 g/dL 3.4-5. 0 Not Available [facility] (Lab) [address] [place], [address], 07/24/2023 18:26:21 07/24/20 23 07/24/2023 COMPR EHENS LEONIDAS METAB OLIC PANEL globulin 3.4 g/dL 2.6-4. 2 Not Available [facility] (Lab) [address] [place], [address], 07/24/2023 18:26:21 07/24/20 23 07/24/2023 COMPR EHENS LEONIDAS METAB OLIC PANEL A/G ratio 1.3 ratio 1.0-2. 0 Not Available [facility] (Lab) [address] [place], [address], 07/24/2023 18:26:21 07/24/20 23 07/24/2023 LIPID PANEL cholesterol 171 mg/dL 140-19 9 NIH DEBBIE NSUS RECOM MENDA TION FOR ALBA STERO L: ADULT CHILD LOW RISK: <200 <170 BORDE RLINE : <200- 239 ----- HIGH RISK: >240 >200 Not Available [facility] (Lab) [address] [place], [address], 07/24/2023 18:26:24 07/24/20 23 07/24/2023 LIPID PANEL triglyceride s 206 mg/dL 0-150 high NIH DEBBIE NSUS REPOR T RECOM MENDA TION FOR TRIGL YCERI BATOOL: ADULT CHILD LOW RISK: <150 ----- BODER LINE: 150-1 99 ----- HIGH RISK: >200 ----- Not Available [facility] (Lab) [address] [place], [address], 07/24/2023 18:26:24 07/24/20 23 07/24/2023 LIPID PANEL HDL cholesterol 48 mg/dL 40- Not Available [facility] (Lab) [address] [place], [address], 07/24/2023 18:26:24 07/24/20 23 07/24/2023 LIPID PANEL LDL cholesterol, calculated 82 mg/dL 0-130 NIH DEBBIE NSUS REPOR T RECOM MENDA TIONS FOR LDL: ADULT CHILD LOW RISK <130 <110 (OPTI MAL LDL) <100 ----- BORDE RLINE : 130-1 59 ----- HIGH RISK: >160 >130 A TRIGL YCERI DE RESUL T >400 INVAL IDATE S THE CALCU LATIO N FOR LDL FRACT IONAT ION - THE LDL RESUL T WILL NOT BE REPOR ARMOND. Not Available [facility] (Lab) [address] [place], [address], 07/24/2023 18:26:24 07/24/20 23 07/24/2023 CBC/C OMPLE TE BLD COUNT W/DIF F white blood cells 9.4 x10'3 /uL 4.2-10 .8 Not Available [facility] (Lab) [address] [place], [address], 07/24/2023 18:28:06 07/24/20 23 07/24/2023 CBC/C OMPLE TE BLD COUNT W/DIF F red blood cells 4.43 x10'6 /uL 3.80-5 .20 Not Available [facility] (Lab) [address] [place], [address], 07/24/2023 18:28:06 07/24/20 23 07/24/2023 CBC/C OMPLE TE BLD COUNT W/DIF F hemoglobin 14.2 g/dL 12.0-1 5.6 Not Available [facility] (Lab) [address] [place], [address], 07/24/2023 18:28:06 07/24/20 23 07/24/2023 CBC/C OMPLE TE BLD COUNT W/DIF F hematocrit 41.9 % 35.7-4 5.7 Not Available [facility] (Lab) [address] [place], [address], 07/24/2023 18:28:06 07/24/20 23 07/24/2023 CBC/C OMPLE TE BLD COUNT W/DIF F mean red cell volume 94.6 fL 82.0-9 9.0 Not Available [facility] (Lab) [address] [place], [address], 07/24/2023 18:28:06 07/24/20 23 07/24/2023 CBC/C OMPLE TE BLD COUNT W/DIF F mean red cell hemoglobin 32.1 pg 27.0-3 3.0 Not Available [facility] (Lab) [address] [place], [address], 07/24/2023 18:28:06 07/24/20 23 07/24/2023 CBC/C OMPLE TE BLD COUNT W/DIF F mean RBC HGB concentratio n 33.9 g/dL 31.0-3 6.0 Not Available [facility] (Lab) [address] [place], [address], 07/24/2023 18:28:06 07/24/20 23 07/24/2023 CBC/C OMPLE TE BLD COUNT W/DIF F red cell distribution width 12.3 % 11.8-1 5.5 Not Available [facility] (Lab) [address] [place], [address], 07/24/2023 18:28:06 07/24/20 23 07/24/2023 CBC/C OMPLE TE BLD COUNT W/DIF F platelets 380 x10'3 /uL 150-40 0 Not Available [facility] (Lab) [address] [place], [address], 07/24/2023 18:28:06 07/24/20 23 07/24/2023 CBC/C OMPLE TE BLD COUNT W/DIF F mean platelet volume 11.9 fL 9.0-12 .4 Not Available [facility] (Lab) [address] [place], [address], 07/24/2023 18:28:06 07/24/20 23 07/24/2023 CBC/C OMPLE TE BLD COUNT W/DIF F neutrophils 57.5 % 39.0-7 2.0 Not Available [facility] (Lab) [address] [place], [address], 07/24/2023 18:28:06 07/24/20 23 07/24/2023 CBC/C OMPLE TE BLD COUNT W/DIF F lymphocytes 33.3 % 16.0-4 7.0 Not Available [facility] (Lab) [address] [place], [address], 07/24/2023 18:28:06 07/24/2007/24/2023 CBC/C OMPLE TE BLD COUNT W/DIF F monocytes 4.8 % 5.0-12 .0 low Not Available [facility] (Lab) [address] [place], [address], 07/24/2023 18:28:06 07/24/20 23 07/24/2023 CBC/C OMPLE TE BLD COUNT W/DIF F eosinophils 3.0 % 1.0-7. 0 Not Available [facility] (Lab) [address] [place], [address], 07/24/2023 18:28:06 07/24/20 23 07/24/2023 CBC/C OMPLE TE BLD COUNT W/DIF F basophils 1.0 % 0.0-2. 0 Not Available [facility] (Lab) [address] [place], [address], 07/24/2023 18:28:06 07/24/20 23 07/24/2023 CBC/C OMPLE TE BLD COUNT W/DIF F immature granulocytes 0.4 % 0.00-0 .50 Not Available [facility] (Lab) [address] [facility] [place], [address], 07/24/2023 18:28:06 07/24/20 23 07/24/2023 CBC/C OMPLE TE BLD COUNT W/DIF F neutrophils, absolute count 5.38 x10'3 /uL 1.5-8. 0 Not Available [facility] (Lab) [address] [place], [address], 07/24/2023 18:28:06 07/24/20 23 07/24/2023 CBC/C OMPLE TE BLD COUNT W/DIF F lymphocytes, absolute count 3.11 x10'3 /uL 1.07-3 .43 Not Available [facility] (Lab) [address] [place], [address], 07/24/2023 18:28:06 07/24/20 23 07/24/2023 CBC/C OMPLE TE BLD COUNT W/DIF F monocytes, absolute count 0.45 x10'3 /uL 0.29-0 .99 Not Available [facility] (Lab) [address] [place], [address], 07/24/2023 18:28:06 07/24/20 23 07/24/2023 CBC/C OMPLE TE BLD COUNT W/DIF F eosinophils, absolute count 0.28 x10'3 /uL 0.02-0 .53 Not Available [facility] (Lab) [address] [place], [address], 07/24/2023 18:28:06 07/24/20 23 07/24/2023 CBC/C OMPLE TE BLD COUNT W/DIF F basophils, absolute count 0.09 x10'3 /uL 0.01-0 .08 high Not Available [facility] (Lab) [address] [place], [address], 07/24/2023 18:28:06 07/24/20 23 07/24/2023 CBC/C OMPLE TE BLD COUNT W/DIF F immature granulocytes ,absolute 0.04 x10'3 /uL 0.00-0 .05 Not Available [facility] (Lab) [address] [place], [address], 07/24/2023 18:28:06 07/24/20 23 07/24/2023 CBC/C OMPLE TE BLD COUNT W/DIF F nucleated red blood cells 0.0 % -0 Not Available [facility] (Lab) [address] [place], [address], 07/24/2023 18:28:06 07/24/20 23 07/24/2023 CBC/C OMPLE TE BLD COUNT W/DIF F NRBC# 0.00 x10'3 /uL Not Available [facility] (Lab) [address] [place], [address], 07/24/2023 18:28:06 07/24/20 23 07/24/2023 VITAM IN D 25-HY DROXY [id number] 41.4 NG/mL 30-100 Vitam in D Statu s: Defic ient: <20 ng/mL Insuf ficie nt: 20-29 ng/mL Suffi cient : 30-10 0 ng/mL Not Available [facility] (Lab) [address] [place], [address], 07/24/2023 18:34:10 07/24/20 23 07/24/2023 T4 FREE free T4 1.13 NG/dL 0.78-2 .19 Not Available [facility] (Lab) [address] [place], [address], 07/24/2023 18:35:06 07/24/20 23 07/24/2023 TSH thyroid-stim ulating hormone 1.040 uIU/m L 0.465- 4.680 Not Available [facility] (Lab) [address] [place], [address], 07/24/2023 18:49:35 07/24/20 23 07/24/2023 VITAM IN B12 (CHAZ BIJAN ) vb12 547 pg/mL 239-93 1 Not Available [facility] (Lab) [address] [place], [address], 07/24/2023 19:23:24 07/24/2007/24/2023 FOLAT E, SERUM /PLAS MA folate 15.6 NG/mL 2.76-2 0.0 Not Available [facility] (Lab) [address] [place], [address], 07/24/2023 19:23:25 07/24/2007/24/2023 HEMOG LOBIN A1C HA1C 4.5 % 4.0-6. 0 Diabe fatou Scree rhonda Crite kayla: <5.7% Consi stent with absen ce of diabe fatou 5.7-6 .4% Consi stent with incre ased risk for diabe fatou (pred iabet es) >OR=6 .5% Consi stent with diabe fatou REFER ENCE: Diabe fatou Care 2016, 39([place] ppl.1 ):s13 -s22 Not Available [facility] (Lab) [address] [place], [address], 07/24/2023 21:15:55 Result Notes None recorded. 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 4 14:16:03 Vitamin D deficiency 69194602 Active 2021 Erinn Dial APRN [address], [address], [place], [address] , [facility] 4 14:16:11 Thrombocytosi s 9169194 Active 2021 Not Available [facility] 3 06:52:24 Psoriasis 7625731 Active 2022 Erinn Dial APRN [address], [address], [place], [address] , [employer] [facility] [employer] 4 14:16:06 Chronic otitis externa 90299607 Active 2022 Not Available [facility] 3 06:52:24 Fatigue 81897852 Active 2022 Erinn Dial APRN [address], [facility], [place], [address] , [employer] [facility] 4 14:20:30 Insomnia 081792233 Active 2022 Erinn Dial APRN [address], [address] [address], [place], [address] , [employer] [facility] [employer] 4 14:16:01 Problem Notes None recorded. Procedures Surgical History Date Name Laterality Status Provider Name and Address Organization Details Recorded Time tonsilectomy /adenoids completed Not Available Counts include 234 beds at the [facility] 11/02/2022 16:54:04 [place] [facility] completed Not Available [facility] 11/02/2022 16:54:04 Imaging Results None recorded. Procedure Notes None recorded. Medical Equipment None Reported. Allergies Allergen ID Allergen Name Allergen Category Reaction Reaction Severity Criticality Documentation Date Start Date Code Code System Note Provider Name and Address Organization Details Recorded Time 14777 Product containin g penicilli n (product) medicatio n hives Not available Not available 11/02/2022 08693 8001 SNOMED Not Available [facility] 3 16:55:10 10503 morphine medicatio n hives Not available Not available 11/02/2022 7052 RxNorm Not Available Counts include 234 beds at the [facility] 3 16:55:10 13568 Augmentin medicatio n hives Not available Not available 11/02/2022 44205 2 RxNorm Not Available Counts include 234 beds at the [facility] 3 16:55:11 Medications Name Sig Start Date Stop Date Status Note LastModified by Organization Details LastModified Time azithromyci n 250 mg tablet TAKE 2 TABLETS BY MOUTH FOR 1 DAY THEN TAKE 1 TABLET BY MOUTH DAILY FOR 4 DAYS 07/29 completed Not Available Not Available Not Available acyclovir 400 mg tablet TK 1 T PO TID 01/22 completed Not Available Not Available Not Available triamcinolo ne acetonide 0.1 % topical ointment APPLY TO THE AFFECTED AREA ON NECK TWICE DAILY NEEDED 03/15 completed Not Available Not Available Not Available misoprostol 200 mcg tablet 01/22 completed Not Available Not Available Not Available ergocalcife rol (vitamin D2) 1,250 mcg (50,000 unit) capsule Take 1 capsule every week by oral route. 07/24 completed Not Available Not Available Not Available methylpredn isolone 4 mg tablets in a dose pack FOLLOW PACKAGE DIRECTION S 07/29 completed Not Available Not Available Not Available labetalol 100 mg tablet TAKE 1 TABLET BY MOUTH ONCE DAILY active Not Available Not Available No t Available norethindro ne (contracept leonidas) 0.35 mg tablet TAKE 1 TABLET BY MOUTH DAILY 07/24 completed Not Available Not Available Not Available medroxyprog esterone 150 mg/mL intramuscul ar syringe U UTD 01/22 completed Not Available Not Available Not Available ciprofloxac in 0.3 %-dexametha sone 0.1 % ear drops,suspe nsion SHAKE LIQUID AND INSTILL 4 DROPS TO AFFECTED EAR TWICE DAILY FOR 7 DAYS 07/18 completed Not Available Not Available Not Available Aurovela 24 Fe 1 mg-20 mcg (24)/75 mg (4) tablet TAKE 1 TABLET BY MOUTH EVERY DAY 08/05 completed Not Available Not Available Not Available albuterol sulf 90 mcg/actuati on breath activated powder inhaler,sen sor Inhale 2 puffs every 4 hours by inhalatio n route as needed. 2022 active Not Available Not Available Not Avai lable Vitals Date Recorded Body mass index (BMI) Body height Oxygen saturation Oxygen saturation in Arterial blood by Pulse oximetry Heart rate Body temperature Body weight Systolic blood pressure Diastolic blood pressure Provider Name and Address Organization Details Last Updated DateTime 1 22.9 kg/m2 167.64 cm 98 % 98 % 85 /min 97.9 [degF] 34971.1 2 g 118 mm[Hg] 76 mm[Hg] Not Available Counts include 234 beds at the [facility] 3 16:54:09 Date Recorded Body mass index (BMI) Body height Oxygen saturation Oxygen saturation in Arterial blood by Pulse oximetry Heart rate Body temperature Body weight Systolic blood pressure Diastolic blood pressure Provider Name and Address Organization Details Last Updated DateTime 2 21.8 kg/m2 167.64 cm 100 % 100 % 92 /min 97.7 [degF] 56825.9 7 g 116 mm[Hg] 74 mm[Hg] Not Available [facility] 3 16:54:09 Date Recorded Body height Provider Name an d Address Organization Details Last Updated DateTime 03/30/2022 167.64 cm Not Available Counts include 234 beds at the [facility] 3 16:54:09 Date Recorded Body height Body mass index (BMI) Body weight Body temperature Heart rate Oxygen saturation Oxygen saturation in Arterial blood by Pulse oximetry Systolic blood pressure Diastolic blood pressure Provider Name and Address Organization Details Last Updated DateTime 3 167.64 cm 23.2 kg/m2 57020.3 g 97.4 [degF] 98 /min 99 % 99 % 126 mm[Hg] 74 mm[Hg] Luz Maria Joaquin MA [facility] 3 15:21:40 Date Recorded Body height Body mass index (BMI) Body weight Body temperature Heart rate Systolic blood pressure Diastolic blood pressure Provider Name and Address Organization Details Last Updated DateTime 4 167.64 cm 24.5 kg/m2 00328.0 4 g 97.4 [degF] 84 /min 120 mm[Hg] 76 mm[Hg] [facility] [employer] [facility] 4 10:14:51 Social History Question Answer Notes LastModified by Organization Details LastModified Time Tobacco Smoking Status Former Smoker quit 2019 BOY Olivarez [place] [facility] 08/05/2024 10:12:35 Do You Have An Advance Directive? No MIGRATION.030 [id number] Information not available 11/02/2022 What Is Your Level Of Alcohol Consumption? Occasional MIGRATION.030 [id number] Information not available 11/02/2022 What Is Your Level Of Caffeine Consumption? Heavy MIGRATION.030 [id number] Information not available 11/02/2022 How Much Tobacco Do You Chew? None MIGRATION.030 [id number] Information not available 11/02/2022 In The 14 Days Before Symptom Onset, Have You Had Close Contact With A Laboratory-confi rmed COVID-19 While That Case Was Ill? No MIGRATION.030 [id number] Information not available 11/02/2022 In The 14 Days Before Symptom Onset, Have You Had Close Contact With A Person Who Is Under Investigation For COVID-19 While That Person Was Ill? No MIGRATION.030 [id number] Information not available 11/02/2022 Are You Currently Employed? Yes Information not available 08/05/2024 What Type Of Diet Are You Following? REGULAR MIGRATION.030 [id number] Information not available 11/02/2022 Which Illicit Or Recreational Drugs Have You Used? None MIGRATION.030 [id number] Information not available 11/02/2022 Do You Or Have You Ever Used E-cigarettes Or Vape? Former User Of Electronic Cigarettes Information not available 08/05/2024 What Is The Highest Grade Or Level Of School You Have Completed Or The Highest Degree You Have Received? [id number] [id number] Information not available 11/02/2022 What Is Your Occupation? [employer] MIGRATION.300 [id number] Information not available 11/02/2022 Have There Been Any Changes To Your Family Or Social Situation? No MIGRATION.030 [id number] Information not available 11/02/2022 What Is The Fluoride Status Of Your Home? Unknown MIGRATION.030 [id number] Information not available 11/02/2022 When Did You Quit Smoking? 1-5yearssincelastoskar trammell Information not available 08/05/2024 Are There Any Guns Present In Your Home? Yes MIGRATION.030 [id number] Information not available 11/02/2022 Where Do You Live? [place]House MIGRATION.0301 [id number] Information not available 11/02/2022 Do You Have A Medical Power Of Lens Matcher? No MIGRATION.0301 [id number] Information not available 11/02/2022 What Was The Date Of Your Most Recent Tobacco Screening? 08/05/2024 Information not available 08/05/2024 Do You Have Any Pets? Yes MIGRATION.0301 [id number] Information not available 11/02/2022 What Is Your Relationship Status? Information not available 08/05/2024 Do You Use Your Seat Belt Or Car Seat Routinely? Yes MIGRATION.0301 [id number] Information not available 11/02/2022 Do You Have Smoke And Carbon Monoxide Detectors In Your Home? Yes MIGRATION.0301 [id number] Information not available 11/02/2022 Are You Passively Exposed To Smoke? No MIGRATION.0301 [id number] Information not available 11/02/2022 Do You Or Have You Ever Used Smokeless Tobacco? Never Used Smokeless Tobacco MIGRATION.0301 [id number] Information not available 11/02/2022 Are There Any Smokers In Your House? No MIGRATION.0301 [id number] Information not available 11/02/2022 Do You Feel Stressed (tense, Restless, Nervous, Or Anxious, Or Unable To Sleep At Night)? [id number] MIGRATION.0301 [id number] Information not available 11/02/2022 Do You Use Any Illicit Or Recreational Drugs? No MIGRATION.0301 [id number] Information not available 11/02/2022 Do You Use Sunscreen Routinely? Yes MIGRATION.0301 [id number] Information not available 11/02/2022 How Many Years Have You Smoked Tobacco? 10 MIGRATION.0301 [id number] Information not available 11/02/2022 Have You Recently Traveled Abroad? No MIGRATION.0301 [id number] Information not available 11/02/2022 Do You Have Any Dietary Restrictions? No MIGRATION.0301 [id number] Information not available 11/02/2022 Do You Or Have You Ever Used Any Other Forms Of Tobacco Or Nicotine? No MIGRATION.0301 [id number] Information not available 11/02/2022 Sex: Unknown Functional Status Question Answer Note LastModified by Organizat ion Details LastModified Time What is your exercise level? Occasional [id number] Information not available 11/02/2022 Mental Status None recorded. Family History Relationship Description Onset Age of this Age Resolved Age Notes LastModified by Organization Details LastModified Time Father Hypertensive disorder MIGRATION.[id number] Not available 11/02/2022 16:54:04 Mother History of thyroid disorder MIGRATION.124 [id number] Not available 11/02/2022 16:54:04 Medical History Condition Response NERVE DISEASE N BLINDNESS N RHEUMATIC FEVER N KIDNEY STONES N BLADDER PROBLEMS N MRSA N OTHER # 1 N POLIO N LUNG DISEASE/DISORDER N RADIATION / CHEMOTHERAPY N COPD N Other # 2 N BLOOD DISEASES N EAR OR HEARING PROBLEMS N MUMPS N DEPRESSION (INCLUDING POST ) N BOWEL PROBLEMS N STROKE/TIA N ULCERS N BENIGN PROSTATIC HYPERPLASIA N MEASLES N MYOCARDIAL INFARCTION N OBESITY N GERD/NAUSEA N ANEURYSM N URINARY/BLADDER/KIDNEY PROBLEMS N CORONARY ARTERY DISEASE (CAD) N ADDICTION CONCERNS N Impotence N ENDOMETRIOSIS N USE OF BLOOD THINNERS N SKIN PROBLEMS Y GASTROINTESTINAL DISORDER N PERIPHERAL VASCULAR DISEASE N MUSCLE,JOINT OR BONE PROBLEMS N GASTROINTESTINAL BLEEDING N BLOOD CLOTS N ASTHMA Y CATARACTS N ERECTILE DYSFUNCTION N VARICOSITIES N GI PROBLEMS N Low Testosterone N INFERTILITY N AIDS/HIV N CHEMOTHERAPY / RADIATION N LIVER DISEASE N MALE HYPOGONADISM N HYPERTENSION Y Deficiency N TOURETTE'S N ANXIETY DISORDER N BLOOD TRANSFUSION N ANEMIA/BLOOD DISORDER N CHRONIC EAR INFECTIONS N BRONCHITIS Y TUBERCULOSIS N GLAUCOMA N FOOT PROBLEM N DIVERTICULITIS N SLEEP APNEA N CHICKENPOX N INFECTIOUS DISEASE N PROSTATE N HEART ARRHYTHMIA N INSOMNIA N HIGH CHOLESTEROL / HYPERLIPIDEMIA N EYE PROBLEMS N HYPERTHYROIDISM N EDEMA N CHRONIC PAIN SYNDROME N HYPOTHYROIDISM N CAROTID BLOCKAGE N CONSTIPATION N BACK / NECK PROBLEMS Y HAVE YOU BEEN HOSPITALIZED OR SEEN IN [facility] IN THE PAST YEAR ? N ATHEROSCLEROSIS N BREAST PROBLEMS N DIALYSIS N ECZEMA N OSTEOPOROSIS N ARTHRITIS N APPENDICITIS N DIABETES, TYPE N BAD TEETH N ENT N HEARTBURN / REFLUX N AUTISM SPECTRUM DISORDER (ASD) N HEPATITIS / LIVER DISEASE N GOUT N SLEEP DISORDER N ALZHEIMER'S DISEASE N Brain Problems N DEMENTIA N HERPES N SEIZURES/EPILEPSY N HEADACHES/MIGRAINES N VASCULAR DISEASE N PACEMAKER N Blood Disorder N DIZZINESS N HEART DISEASE/HEART PROBLEMS N KIDNEY DISEASE N MULTIPLE SCLEROSIS N CANCER: SPECIFY N CARDIAC ARRHYTHMIA N ATRIAL FIBRILLATION N Gall Stones N PULMONARY EMBOLISM N AUTOIMMUNE DISEASE N Gynecological History Statement/Question Response Dislike of Light during Menstrual Headac he N Menses Monthly Y STIs/STDs N Date of Last Pap 07/05/2019 Current Control Method BCPs Date of LMP 01/20/2021 Sexually Active? Y Obstetrics History GPAL:G 1 P 0 0 0 1 Type Value Living 1 Total 1 Past Encounters Encounter ID Performer Location Encounter Start Date Encounter Closed Date Diagnosis/Indication Diagnosis SNOMED-CT Code Diagnosis ICD10 Code Diagnosis Note [id number] [facility] [address] [place], [place] [address], [address] [address] 01/22/2021 00:00:00 01/22/2021 20:15:26 [id number] [facility] [address] [place] [address] 04/12/2021 00:00:00 04/12/2021 21:06:46 [id number] [facility] [address] [place] [address] reuben Foy, [place] [address] 07/26/2021 00:00:00 07/26/2021 20:04:49 [id number] [facility] Cj hazel [address] [place] [address] y , [place] [address] 03/30/2022 00:00:00 03/30/2022 13:10:57 [id number] [facility] [address] [place] [address] 07/18/2022 00:00:00 07/18/2022 14:29:27 [id number] ERIK Griffin [facility] [address] [place] [address] 07/24/2023 15:08:46 07/24/2023 15:41:28 Adult health examination 641427890 Z00.01 Psoriasis 5837794 L40.9 Get appointmen t with Derm per her request-Dr Lulú Lovell Chronic ot itis externa [id number] H60.60 Get appointmen t with ENT per her request-Dr Lulú Dykes Vitamin D deficiency 347 36981 E55.9 Has not been taking her supplement Check labs Fatigue 71104565 R53.83 Check labs Insomnia 087435148 G47.0 0 Wants to avoid sleeping pills if possible so she is able to wake for her toddler if she needs her Will have her try some OTC melatonin Call office if this does not improve with the melatonin Hyperlipid emia screening 697956447 Z13.220 Diabetes m ellitus screening 012547795 Z13.1 Depression screening 171 951717 Z13.31 Body mass index 20-24 - normal 104229487 Z68.23 recommend healthy, well balanced mealsfocus on lean meats, fresh vegetables , fresh fruits, whole grainsredu ce fast/proce ssed foods or eating out to no more than 1-2 times per weekaim to get 30 min of exercise most days of the week- walking is a great choicealso recommend resistance training 2-3 times per week [id number] Erinn Dial APRN [facility] [address] [facility], [place] [address] 08/05/2024 10:02:08 08/05/2024 10:45:26 Vitamin D deficiency 70743981 E55.9 Diabetes m krystalitus screening 119143011 Z13.1 Hyperlipid emia screening 943685348 Z13.220 Screening for disorder 598090277 Z13.9 Thyroid di sorder screening 532027547 Z13.29 Hepatitis C screening 41 5034206 Z11.59 Health Concerns Section Related Observation LastModified by Organization Detai ls LastModified Time None Recorded Concern Status LastModified by Organization Details LastModified Time None Recorded Advance Directives Directive N: Payers Encounter Date Sequence Insurance Name Policy Number Policy Garza Covered Member ID Garza Member ID Guarantor Name 07/24/2023 1 [employer] ([employer]) [employer] Mary E Tinnon [id number] Mary E Tinnon 08/05/2024 1 UMR [id number] Mary E Tinnon [id number] Mary E Tinnon Notes Date Note Type Note Provider Name and Address Organization Details Recorded Time 07/24/2023 text/html Mary presents today for annual wellness exam. She reports she did get her labs done last time and she needs new orders. 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 She has new insurance now so she needs new referrals. She complains today of some fatigue. She also notes that she is having some difficulty falling back to sleep after her 3-year-old wakes her up sometimes. She has not tried anything OTC. She is wanting to avoid sleeping pills of possible so she can wake up to her daughter if necessary. She denies that there is any sort of issue with anxiety or depression or mood. She declines flu vaccine today. Hilary Mccall, BINA-C [address] [facility], [facility] [address], [place], [address], [employer] 07/24/2023 16:18:31 08/05/2024 text/html Mary presents today to establish care as her previous provider has left the area. She denies any illnesses or injuries since visit to previous provider. She states that her insomnia has improved since she moved her toddler out of her bed. Erinn Dial APRN [address] [facility], [facility] [address], [place], [address], [employer] 08/05/2024 10:45:35 OBGyn Episode No OBEpisode recorded.
[2024-11-18 09:00] LABS: Basophils Absolute Auto 0.1 K/mm3 (0.0-0.1); Basophils Percent Auto 0.3 % (0.2-1.2); Eosinophils Percent Auto 0.2 % (0-4.4); Hematocrit 39.4 % (37.0-47.0); Hemoglobin 13.3 g/dL (12.0-15.0); Immature Granulocyte Absolute 0.42 K/mm3 (0.00-0.031); Immature Granulocyte Percent A 1.8 % (0-0.5); Lymphocytes Absolute Auto 1.14 K/mm3 (0.9-3.2); Lymphocytes Percent Auto 4.9 % (18.3-44.2); Mean Corpuscular HGB Conc 33.8 g/dl (32-36); Mean Corpuscular Hemoglobin 31.4 pg (26-34); Mean Corpuscular Volume 92.9 fl (80-100); Mean Platelet Volume 10.1 fl (7.4-10.4); Monocytes Absolute Auto 0.6 K/mm3 (0.1-0.6); Monocytes Percent Auto 2.6 % (2.6-8.5); Neutrophils Absolute Auto 21.1 K/mm3 (1.3-6.7); Neutrophils Percent Auto 90.2 % (45.5-73.1); Platelet Count Result 382 k/mm3 (150-375); Red Blood Count 4.24 M/mm3 (4.2-5.4); Red Cell Distribution Width 13.2 % (11.5-14.5); White Blood Count 23.4 K/mm3 (4.5-10.0)
[2024-11-18 09:08] LABS: Add Urine Microscopic? YES; Appearance Urine Clear (Clear); Bacteria Urine 1+ /hpf; Bilirubin Urine Negative (Negative); Blood Urine Trace (Negative); Color Urine Yellow (Yellow); Glucose Urine UA Negative (Negative); Ketones Urine 1+ mg/dL (Negative); Leukocyte Esterase Ur 1+ LEU/UL (Negative); Nitrate Urine Negative (Negative); Non Pathogenic Casts 0-2; Protein Urine Trace mg/dL (Negative); Specific Grav Ur 1.021 (1.001-1.035); Squamous Epithelial Cell Urine Few /hpf (Few); Urobilinogen Urine 0.2 mg/dL (<2.0); WBC Urine 21-50 /hpf (0-3); pH Urine 5.5 (5.0-9.0)
[2024-11-18 09:13] LABS: Alanine Aminotransferase 21 U/L (6-35); Albumin Level 4.1 g/dL (3.5-5.1); Alkaline Phosphatase 61 U/L (38-126); Anion Gap 9 mmol/L (4-12); Aspartate Amino Transferase 21 U/L (14-36); Bilirubin,Total 0.5 mg/dL (0.2-1.3); Blood Urea Nitrogen 7 mg/dL (7-17); Carbon Dioxide 23 mmol/L (22-30); Chloride 106 mmol/L (98-107); Estimated CRCL calculation 128 ml/min; Estimated Glomerular Filt Rate > 60; Glucose 97 mg/dL (65-110); Lipase 67 U/L (23-300); Potassium 3.6 mmol/L (3.4-5.0); Sodium 138 mmol/L (137-145)
[2024-11-18] MEDS: PROMETHAZINE HCL 25 MG/ML AMPUL 12.5 MG IV PUSH (12:12)
[2024-11-18] MEDS: SODIUM CHLORIDE 0.9% IV 50 ML 200 ML (12:14)
--- NOTE | 2024-11-18 12:18 | ED.GENADULT ---
HPI - General Adult General Chief complaint: Nausea/Vomiting/Diarrhea Stated complaint: vomiting Time Seen by Provider: 11/18/24 08:50 History of Present Illness HPI narrative: Patient is a 29-year-old female who is 17 weeks that presents with GI illness began her last night at 3:00 a.m.. She has had multiple episodes of vomiting and diarrhea. She has a child who is also having some vomiting. is doing okay but he has also had a recent GI illness. No blood in her stool or emesis. Alleviating factors at home. Sent here by primary OB. Related Data Home Medications ?Medication ?Instructions ?Recorded ?Confirmed ?Last Taken ?Type docosahexaenoic acid 200 mg mg PO 09/18/24 11/11/24 Unknown History capsule ( DHA) aspirin 81 mg tablet,delayed 162 mg PO DAILY 11/11/24 11/11/24 Unknown History release (Adult Low Dose Aspirin) Allergies Allergy/AdvReac Type Severity Reaction Status Date / Time amoxicillin (From Augmentin) Allergy Intermediate Rash Verified 11/18/24 08:38 clavulanic acid (From Allergy Intermediate Rash Verified 11/18/24 08:38 Augmentin) morphine Allergy Intermediate Rash Verified 11/18/24 08:38 Penicillins Allergy Intermediate hives Verified 11/18/24 08:38 Review of Systems Review of Systems: All systems reviewed & are unremarkable except as noted in HPI and below Constitutional: Constitutional: Reports no additional constitutional complaints Cardiovascular: Cardiovascular: Reports no additional cardiovascular complaints Respiratory: Respiratory: Reports no additional respiratory complaints Gastrointestinal: Gastrointestinal: Reports no additional gastrointestinal complaints [facility] Past Medical History Medical History Suppression of menses Psoriasis Hypertension Asthma Surgical History Surgical History Sadler teeth removed History of tonsillectomy and adenoidectomy Family History Family History Other Hypertension Thyroid disease Social History Social History Smoking status: Former smoker Tobacco type: e-cigarettes/vaping Alcohol intake: former Alcohol use details: socially Substance use: never Substance use type: does not use Current Housing: Decline to Answer Concerned About Future Housing: Decline to Answer Difficulty Paying Gas/Electric Bills: Decline to Answer Difficulty Paying for Meds: Decline to Answer Currently Unemployed: Decline to Answer Education: Decline to Answer Difficulty w/ Childcare or Family Care: Decline to Answer Living arrangements: with family Occupation/Education: occupation 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 HEAD: Normocephalic, atraumatic. ENT: Mucous membranes moist. CHEST: Clear to auscultation. No respiratory distress. HEART: Regular rate and rhythm. Normal peripheral pulses. ABDOMEN: Soft, soft and nontender upper abdomen, uterus palpated below the umbilicus, nondistended. EXTREMITIES: Normal range of motion. No edema. SKIN: Warm, dry, no rash. NEURO: Alert and oriented x3. PSYCH: Normal mood and affect. Course Course Emergency Course: Nausea significantly improved but would like a 2nd dose of medication. Received IV fluid. She feels comfortable going home. Discussed with OB. They have already sent in a prescription for antiemetics. I will however prescribed Macrobid for bacteriuria. Vital Signs Vital signs: Vital Signs Temperature 97.6 F 11/18/24 08:41 Pulse Rate 117 H 11/18/24 08:41 Respiratory Rate 11/18/24 08:41 Blood Pressure 130/87 11/18/24 08:41 Pulse Oximetry 100 11/18/24 08:41 Oxygen Delivery Room Air 11/18/24 08:41 Temperature 97.6 F 11/18/24 08:41 Pulse Rate 117 H 11/18/24 08:41 Respiratory Rate 11/18/24 08:41 Blood Pressure 130/87 11/18/24 08:41 Pulse Oximetry 100 11/18/24 08:41 Oxygen Delivery Room Air 11/18/24 08:41 Medical Decision Making Vital Signs Vital Signs: Vital Signs Temperature 97.6 F 11/18/24 08:41 Pulse Rate 117 H 11/18/24 08:41 Respiratory Rate 11/18/24 08:41 Blood Pressure 130/87 11/18/24 08:41 Pulse Oximetry 100 11/18/24 08:41 Oxygen Delivery Room Air 11/18/24 08:41 Temperature 97.6 F 11/18/24 08:41 Pulse Rate 117 H 11/18/24 08:41 Respiratory Rate 17 11/18/24 08:41 Blood Pressure 130/87 11/18/24 08:41 Pulse Oximetry 100 11/18/24 08:41 Oxygen Delivery Room Air 11/18/24 08:41 Lab Data 11/18/24 08:53 11/18/24 08:53 Labs: Lab Results 11/18/24 Range/Units 08:53 WBC 23.4 H (4.5-10.0) K/mm3 RBC 4.24 (4.2-5.4) M/mm3 Hgb 13.3 (12.0-15.0) g/dL Hct 39.4 (37.0-47.0) % MCV 92.9 (80-100) fl MCH 31.4 (26-34) pg MCHC 33.8 (32-36) g/dl RDW 13.2 (11.5-14.5) % Plt Count 382 H (150-375) k/mm3 MPV 10.1 (7.4-10.4) fl Immature Gran % (Auto) 1.8 H (0-0.5) % Neut % (Auto) 90.2 H (45.5-73.1) % Lymph % (Auto) 4.9 L (18.3-44.2) % [place] % (Auto) 2.6 (2.6-8.5) % Eos % (Auto) 0.2 (0-4.4) % Baso % (Auto) 0.3 (0.2-1.2) % Lymph # (Auto) 1.14 (0.9-3.2) K/mm3 [place] # (Auto) 0.6 (0.1-0.6) K/mm3 Eos # (Auto) 0.0 (0-0.3) K/mm3 Baso # (Auto) 0.1 (0.0-0.1) K/mm3 Abs Immat Gran (auto) 0.42 H (0.00-0.031) K/mm3 Absolute Neuts (auto) 21.1 H (1.3-6.7) K/mm3 Absolute Nucleated RBC 0.000 (0.0-0.012) K/mm3 Nucleated RBC % 0.0 (0.0-0.2) % Sodium 138 (137-145) mmol/L Potassium 3.6 (3.4-5.0) mmol/L Chloride 106 (98-107) mmol/L Carbon Dioxide 23 (22-30) mmol/L Anion Gap 9 (4-12) mmol/L BUN 7 (7-17) mg/dL Creatinine 0.48 L (0.7-1.0) mg/dL Estim Creat Clear Calc 128 ml/min Estimated GFR > 60 (59 - ) Glucose 97 (65-110) mg/dL Calcium 9.0 (8.4-10.2) mg/dL Total Bilirubin 0.5 (0.2-1.3) mg/dL AST 21 (14-36) U/L ALT 21 (6-35) U/L Alkaline Phosphatase 61 (38-126) U/L Total Protein 8.0 (6.3-8.2) g/dL Albumin 4.1 (3.5-5.1) g/dL Lipase 67 (23-300) U/L Urine Color Yellow (Yellow) Urine Appearance Clear (Clear) Urine pH 5.5 (5.0-9.0) Ur Specific [place] 1.021 (1.001-1.035) Urine Protein Trace (Negative) mg/dL Urine Glucose (UA) Negative (Negative) mg/dL Urine Ketones 1+ H (Negative) mg/dL Ur Blood (Man) Trace (Negative) Urine Nitrate Negative (Negative) Urine Bilirubin Negative (Negative) Urine Urobilinogen 0.2 (<2.0) mg/dL Leukocyte Esterase Rfl 1+ H (Negative) FIDEL/UL Urine RBC 3-5 H (0-2) /hpf Urine WBC 21-50 H (0-3) /hpf Ur Squamous Epith Cells Few (Few) /hpf Urine Bacteria 1+ H /hpf Urine Casts 0-2 Discharge Plan Discharge Clinical Impression: Nausea & vomiting, Asymptomatic bacteriuria Patient Disposition: Home, Self-Care Condition: Stable Instructions: Acute Nausea and Vomiting (ED), Urinary Tract Infection in (ED) Additional Instructions: Return to the emergency department if you develop severe abdominal pain, severe nausea and vomiting to the point where you are unable to keep down fluids, if you develop chest pain or difficulty breathing, blood in your stool, dizziness or fainting, or if you develop any other new or concerning symptoms as these could be signs of more serious medical illness. Try to stay well hydrated. Patient Language: Citizen Of [place] Prescriptions: New nitrofurantoin monohyd/m-cryst [Macrobid] 100 mg capsule 100 mg PO Q12H 7 Days Qty: 14 0RF Rx Instructions: must administer with a meal/food No Action DHA 200 mg capsule PO aspirin [Adult Low Dose Aspirin] 81 mg tablet,delayed release (DR/EC) 162 mg PO DAILY ondansetron 4 mg tablet,disintegrating 4 mg PO Q6H PRN (Reason: nausea and vomiting) Qty: 30 0RF Follow-up/Referrals: Betsy Gomez MD [Physician] - 1 Week
== END 2024-11-18 12:56 | disposition home or self-care (01) ==
PROVIDERS: Emergency Provider Emergency Medicine; PCP Nurse Practitioner Family
DX: O21.9 Vomiting of pregnancy, unspecified (principal); R82.71 Bacteriuria; O26.892 Other specified pregnancy related conditions, second trimester; O99.712 Diseases of the skin and subcutaneous tissue complicating pregnancy, second trimester; L40.9 Psoriasis, unspecified; O99.512 Diseases of the respiratory system complicating pregnancy, second trimester; J45.909 Unspecified asthma, uncomplicated; O16.2 Unspecified maternal hypertension, second trimester; Z3A.17 17 weeks gestation of pregnancy; Z87.891 Personal history of nicotine dependence; Z79.82 Long term (current) use of aspirin
CPT/HCPCS: 36415; 80053; 81001; 83690; 85025; 87086; 96374; 96375; 99284; J2405; J2550; J7030

== ENCOUNTER 2024-12-16 14:07 | Outpatient (CLI) | payer OTHER, SELFPAY ==
--- OUTSIDE RECORDS SUMMARY | 2024-12-16 15:51 | XMS_ITS | Data Portability ---
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 She voices understanding of plan and agrees [email or web address] Not available 07/24/2023 16:15:19 Plan of Treatment Reminders Order Date Submit Date Provider Last Modified By Organization Details Last Modified Time Details Appointments Any 15 2024 09:00A Vicky Dial, DELINQUENT TAX COLLECTOR Not available Not available Not available Lab CBC w/ auto diff 2023 024 [email or web address] [facility], [address], [place], [address], 08/05/2024 10:44:28 CMP, serum or plasma 2023 024 [email or web address] [facility], [address], [place], [address], 08/05/2024 10:44:29 lipid panel, serum 2023 024 [email or web address] [facility], [address], [place], [address], 08/20/2024 12:54:28 TSH + free T4, serum 2023 024 [email or web address] [facility], [address], [place], [address], 08/05/2024 10:44:31 vitamin D, 25-hydrox y, total, serum 2023 024 [email or web address] [facility], [address], [place], [address], 08/20/2024 12:54:29 hepatitis C virus Ab, serum 2023 024 [email or web address] [facility], [address], [place], [address], 08/20/2024 12:54:29 HbA1c (hemoglob in A1c), blood 2023 024 [email or web address] [facility], [address], [place], [address], 08/20/2024 12:54:29 lipid panel, serum 2022 023 [...] 2022 023 [email or web address] Slim Dykes MD, [address] [facility], [place], [address], 12/27/2023 09:08:37 dermatolo gist referral 2022 023 [email or web address] Clint Villanueva MD, [address] [facility], [address], [place], [address], 12/27/2023 09:08:38 Procedures None recorded. Surgeries None recorded. Imaging None recorded. Medication Orders None recorded. Patient TargetsNo targets recorded. Patient Instructions Encounter Date Encounter Id Patient Instructions Last Modified By Organization Details Last Modified Time 07/24/2023 [id number] INFLUENZA VACCIN E Recommended today, but patient [...] given GLUCOSE SCREENING Ordered LIPID SCREENING Ordered [email or web address] Not available 07/24/2023 16:18:14 08/05/2024 [id number] Follow up in 6 months Obtain labs Tests: Referral: Recommend: Tetanus vaccine [email or web address] Not available 08/05/2024 10:36:17 Reason for Referral Juvenile Officer Referral fo r Chronic otitis externa Referring Physician: Hilary Mccall, Internal Medicine, Encounter Date: 07/24/2023 Theater Technician Referral for P soriasis Referring Physician: Hilary Mccall, Internal Medicine, Encounter Date: 07/24/2023 Results Created Date Observation Date Name Description Value Unit Range Abnormal Flag Note LastModifiedBy Organization Detail LastModifiedTime 07/23/20 21 07/23/2021 HEMOG LOBIN A1C HA1C 4.8 % 4.0-6. 0 Diabe fatou Boogiee rhonda Crite kayla: <5.7% Consi stent with absen ce of diabe fatou 5.7-6 .4% Consi stent with incre ased risk for diabe fatou (pred iabet es) >OR=6 .5% Consi stent with diabe fatou REFER ENCE: Diabe fatou Care 2016, 39(Boyer ppl.1 ):s13 -s22 Not Available [facility] (Lab) [address] [place], [address], 07/23/2021 20:20:55 07/23/20 21 07/23/2021 TSH thyroid-stim ulating hormone 0.766 uIU/m L 0.465- 4.680 Not Available [facility] (Lab) [address] [place], [address], 07/23/2021 17:41:30 07/23/20 21 07/23/2021 T4 FREE free T4 1.07 NG/dL 0.78-2 .19 Not Available [facility] (Lab) [address] [place], [address], 07/23/2021 17:30:51 07/23/20 21 07/23/2021 VITAM IN D 25-HY DROXY [id number] 42.0 NG/mL 30-100 Vitam in D Statu s: Defic ient: <20 ng/mL Insuf ficie nt: 20-29 ng/mL Suffi cient : 30-10 0 ng/mL Not Available [facility] (Lab) [address] [place], [address], 07/23/2021 17:29:50 07/23/20 21 07/23/2021 LIPID PANEL cholesterol 160 mg/dL 140-19 9 NIH DEBBIE NSUS RECOM MENDA TION FOR ALBA STERO L: ADULT CHILD LOW RISK: <200 <170 BORDE RLINE : <200- 239 ----- HIGH RISK: >240 >200 Not Available [facility] (Lab) [address] [place], [address], 07/23/2021 17:16:36 07/23/20 21 07/23/2021 LIPID PANEL triglyceride s 131 mg/dL 0-150 NIH DEBBIE NSUS REPOR T RECOM MENDA TION FOR TRIGL YCERI BATOOL: ADULT CHILD LOW RISK: <150 ----- BODER LINE: 150-1 99 ----- HIGH RISK: >200 ----- Not Available [facility] (Lab) [address] [place], [address], 07/23/2021 17:16:36 07/23/20 21 07/23/2021 LIPID PANEL HDL cholesterol 49 mg/dL 40- Not Available [facility] (Lab) [address] [place], [address], 07/23/2021 17:16:36 07/23/20 21 07/23/2021 LIPID PANEL [...] WILL NOT BE REPOR ARMOND. Not Available [facility] (Lab) [address] [place], [address], 07/23/2021 17:16:36 07/23/20 21 07/23/2021 COMPR EHENS LEONIDAS METAB OLIC PANEL sodium 143 mmol/ L 137-14 5 Not Available [facility] (Lab) [address] [place], [address], 07/23/2021 17:16:31 07/23/20 21 07/23/2021 COMPR EHENS LEONIDAS METAB OLIC PANEL potassium 4.1 mmol/ L 3.5-5. 1 Not Available [facility] (Lab) [address] [place], [address], 07/23/2021 17:16:31 07/23/20 21 07/23/2021 COMPR EHENS LEONIDAS METAB OLIC PANEL chloride 107 mmol/ L 98-107 Not Available [facility] (Lab) [address] [place], [address], 07/23/2021 17:16:31 07/23/20 21 07/23/2021 COMPR EHENS LEONIDAS METAB OLIC PANEL carbon dioxide 25 mmol/ L 22-30 Not Available [facility] (Lab) [address] [place], [address], 07/23/2021 17:16:31 07/23/20 21 07/23/2021 COMPR EHENS LEONIDAS METAB OLIC PANEL agap 15.1 mmol/ L 14-[address] [facility] (Lab) [address] [place], [address], 07/23/2021 17:16:31 07/23/20 21 07/23/2021 COMPR EHENS LEONIDAS METAB OLIC PANEL glucose 77 mg/dL 70-99 Not Available [facility] (Lab) [address] [place], [address], 07/23/2021 17:16:31 07/23/20 21 07/23/2021 COMPR EHENS LEONIDAS METAB OLIC PANEL BUN 13 mg/dL 8-19 Not Available [facility] (Lab) [address] [place], [address], 07/23/2021 17:16:31 07/23/20 21 07/23/2021 COMPR EHENS LEONIDAS METAB OLIC PANEL creatinine 0.67 mg/dL 0.66-1 .25 Not Available [facility] (Lab) [address] [place], [address], 07/23/2021 17:16:31 07/23/20 21 07/23/2021 COMPR EHENS LEONIDAS METAB OLIC PANEL GFR >60 Refer ence Range : Sabinal ge GFR Healt hy Adult : >60 [...] calcu lator is avail able on the [facility] websi te: https ://smooth padron.[email or web address] boston.o connor/pr pebblesess ional s/kdo qi/gf r_cal culat or Not Available [facility] (Lab) [address] [place], [address], 07/23/2021 17:16:31 07/23/20 21 07/23/2021 COMPR EHENS LEONIDAS METAB OLIC PANEL alkaline phosphatase 64 U/L 38-126 Not Available [facility] (Lab) [address] [place], [address], 07/23/2021 17:16:31 07/23/20 21 07/23/2021 COMPR EHENS LEONIDAS METAB OLIC PANEL alanine aminotransfe rase 17 U/L 0-35 Not Available [facility] (Lab) [address] [place], [address], 07/23/2021 17:16:31 07/23/20 21 07/23/2021 COMPR EHENS LEONIDAS METAB OLIC PANEL aspartate aminotransfe rase 22 U/L 15-37 Not Available [facility] (Lab) [address] [place], [address], 07/23/2021 17:16:31 07/23/20 21 07/23/2021 COMPR EHENS LEONIDAS METAB OLIC PANEL bilirubin, total 0.30 mg/dL 0.20-1 .30 Not Available [facility] (Lab) [address] [place], [address], 07/23/2021 17:16:31 07/23/20 21 07/23/2021 COMPR EHENS LEONIDAS METAB OLIC PANEL calcium 10.4 mg/dL 8.4-10 .2 high Not Available [facility] (Lab) [address] [place], [address], 07/23/2021 17:16:31 07/23/20 21 07/23/2021 COMPR EHENS LEONIDAS METAB OLIC PANEL total protein 7.7 g/dL 6.3-8. 2 Not Available [facility] (Lab) [address] [place], [address], 07/23/2021 17:16:31 07/23/20 21 07/23/2021 COMPR EHENS LEONIDAS METAB OLIC PANEL albumin 4.8 g/dL 3.4-5. 0 Not Available [facility] (Lab) [address] [place], [address], 07/23/2021 17:16:31 07/23/20 21 07/23/2021 COMPR EHENS LEONIDAS METAB OLIC PANEL globulin 2.9 g/dL 2.6-4. 2 Not Available [facility] (Lab) [address] [place], [address], 07/23/2021 17:16:31 07/23/20 21 07/23/2021 COMPR EHENS LEONIDAS METAB OLIC PANEL A/G ratio 1.7 ratio 1.0-2. [address] [facility] (Lab) [address] [place], [address], 07/23/2021 17:16:31 07/23/20 21 07/23/2021 URINA LYSIS COMPL ETE/I RIS W/RFX color yellow Not Available [facility] (Lab) [address] [place], [address], 07/23/2021 16:46:45 07/23/20 21 07/23/2021 URINA LYSIS COMPL ETE/I RIS W/RFX appear turbid abnormal Not Available [facility] (Lab) [address] [place], [address], 07/23/2021 16:46:45 07/23/20 21 07/23/2021 URINA LYSIS COMPL ETE/I RIS W/RFX specific gravity 1.026 1.001- 1.[address] [facility] (Lab) [address] [place], [address], 07/23/2021 16:46:45 07/23/20 21 07/23/2021 URINA LYSIS COMPL ETE/I RIS W/RFX pH 6.5 pH_un its 5.0-9. [address] [facility] (Lab) [address] [place], [address], 07/23/2021 16:46:45 07/23/20 21 07/23/2021 URINA LYSIS COMPL ETE/I RIS W/RFX leukocytes 75 jose/u L negati ve- abnormal Not Available [facility] (Lab) [address] [place], [address], 07/23/2021 16:46:45 07/23/20 21 07/23/2021 URINA LYSIS COMPL ETE/I RIS W/RFX nitrite negati ve negati ve- Not Available [facility] (Lab) [address] [place], [address], 07/23/2021 16:46:45 07/23/20 21 07/23/2021 URINA LYSIS COMPL ETE/I RIS W/RFX protein 10 mg/dL negati ve- abnormal Not Available [facility] (Lab) [address] [place], [address], 07/23/2021 16:46:45 07/23/20 21 07/23/2021 URINA LYSIS COMPL ETE/I RIS W/RFX glucose normal mg/dL normal - Not Available [facility] (Lab) [address] [place], [address], 07/23/2021 16:46:45 07/23/20 21 07/23/2021 URINA LYSIS COMPL ETE/I RIS W/RFX ketones negati ve mg/dL negati ve- Not Available [facility] (Lab) [address] [place], [address], 07/23/2021 16:46:45 07/23/20 21 07/23/2021 URINA LYSIS COMPL ETE/I RIS W/RFX urobilinogen normal mg/dL normal - Not Available [facility] (Lab) [address] [place], [address], 07/23/2021 16:46:45 07/23/20 21 07/23/2021 URINA LYSIS COMPL ETE/I RIS W/RFX bilirubin negati ve mg/dL negati ve- Not Available [facility] (Lab) [address] [place], [address], 07/23/2021 16:46:45 07/23/20 21 07/23/2021 URINA LYSIS COMPL ETE/I RIS W/RFX blood negati ve mg/dL negati ve- Not Available [facility] (Lab) [address] [place], [address], 07/23/2021 16:46:45 07/23/20 21 07/23/2021 URINA LYSIS COMPL ETE/I RIS W/RFX white blood cells 0-8 /i??h pfi?? 0-8 Not Available [facility] (Lab) [address] [place], [address], 07/23/2021 16:46:45 07/23/20 21 07/23/2021 URINA LYSIS COMPL ETE/I RIS W/RFX red blood cells 5-10 /i??h pfi?? 0-4 abnormal Not Available [facility] (Lab) [address] [place], [address], 07/23/2021 16:46:45 07/23/20 21 07/23/2021 URINA LYSIS COMPL ETE/I RIS W/RFX bacteria many abnormal Not Available [facility] (Lab) [address] [place], [address], 07/23/2021 16:46:45 07/23/20 21 07/23/2021 URINA LYSIS COMPL ETE/I RIS W/RFX mucous few /i??l pfi?? abnormal Not Available [facility] (Lab) [address] [place], [address], 07/23/2021 16:46:45 07/23/20 21 07/23/2021 URINA LYSIS COMPL ETE/I RIS W/RFX squamous epithelial packed field /i??l pfi?? abnormal Not Available [facility] (Lab) [address] [facility] [place], [address], 07/23/2021 16:46:45 07/23/20 21 07/23/2021 URINA LYSIS COMPL ETE/I RIS W/RFX budding yeast occasi onal /i??h pfi?? abnormal Not Available [facility] (Lab) [address] [place], [address], 07/23/2021 16:46:45 07/23/20 21 07/23/2021 CBC/C OMPLE TE BLD COUNT W/DIF F white blood cells 9.9 x10'3 /uL 4.2-10 .8 Not Available [facility] (Lab) [address] [place], [address], 07/23/2021 16:33:19 07/23/20 21 07/23/2021 CBC/C OMPLE TE BLD COUNT W/DIF F red blood cells 4.65 x10'6 /uL 3.80-5 .20 Not Available [facility] (Lab) [address] [place], [address], 07/23/2021 16:33:19 07/23/20 21 07/23/2021 CBC/C OMPLE TE BLD COUNT W/DIF F hemoglobin 14.4 g/dL 12.0-1 5.6 Not Available [facility] (Lab) [address] [place], [address], 07/23/2021 16:33:19 07/23/20 21 07/23/2021 CBC/C OMPLE TE BLD COUNT W/DIF F hematocrit 42.7 % 35.7-4 5.7 Not Available [facility] (Lab) [address] [place], [address], 07/23/2021 16:33:19 07/23/20 21 07/23/2021 CBC/C OMPLE TE BLD COUNT W/DIF F mean red cell volume 91.8 fL 82.0-9 9.0 Not Available [facility] (Lab) [address] [place], [address], 07/23/2021 16:33:19 07/23/20 21 07/23/2021 CBC/C OMPLE TE BLD COUNT W/DIF F mean red cell hemoglobin 31.0 pg 27.0-[address] [facility] (Lab) [address] [place], [address], 07/23/2021 16:33:19 07/23/20 21 07/23/2021 CBC/C OMPLE TE BLD COUNT W/DIF F mean RBC HGB concentratio n 33.7 g/dL 31.0-[address] [facility] (Lab) [address] [place], [address], 07/23/2021 16:33:19 07/23/20 21 07/23/2021 CBC/C OMPLE TE BLD COUNT W/DIF F red cell distribution width 12.4 % 11.8-1 5.5 Not Available [facility] (Lab) [address] [place], [address], 07/23/2021 16:33:19 07/23/20 21 07/23/2021 CBC/C OMPLE TE BLD COUNT W/DIF F platelets 485 x10'3 /uL 150-40 0 high Not Available [facility] (Lab) [address] [place], [address], 07/23/2021 16:33:19 07/23/20 21 07/23/2021 CBC/C OMPLE TE BLD COUNT W/DIF F mean platelet volume 10.8 fL 9.0-12 .4 Not Available [facility] (Lab) [address] [place], [address], 07/23/2021 16:33:19 07/23/20 21 07/23/2021 CBC/C OMPLE TE BLD COUNT W/DIF F neutrophils 51.6 % 39.0-7 2.0 Not Available [facility] (Lab) [address] [place], [address], 07/23/2021 16:33:19 07/23/20 21 07/23/2021 CBC/C OMPLE TE BLD COUNT W/DIF F lymphocytes 36.8 % 16.0-4 7.0 Not Available [facility] (Lab) [address] [place], [address], 07/23/2021 16:33:19 07/23/20 21 07/23/2021 CBC/C OMPLE TE BLD COUNT W/DIF F monocytes 6.3 % 5.0-[address] [facility] (Lab) [address] [place], [address], 07/23/2021 16:33:19 07/23/20 21 07/23/2021 CBC/C OMPLE TE BLD COUNT W/DIF F eosinophils 4.2 % 1.0-7. 0 Not Available [facility] (Lab) [address] [place], [address], 07/23/2021 16:33:19 07/23/20 21 07/23/2021 CBC/C OMPLE TE BLD COUNT W/DIF F basophils 0.8 % 0.0-2. 0 Not Available [facility] (Lab) [address] [place], [address], 07/23/2021 16:33:19 07/23/20 21 07/23/2021 CBC/C OMPLE TE BLD COUNT W/DIF F immature granulocytes 0.3 % 0.00-0 .50 Not Available [facility] (Lab) [address] [place], [address], 07/23/2021 16:33:19 07/23/20 21 07/23/2021 CBC/C OMPLE TE BLD COUNT W/DIF F neutrophils, absolute count 5.11 x10'3 /uL 1.5-8. 0 Not Available [facility] (Lab) [address] [place], [address], 07/23/2021 16:33:19 07/23/20 21 07/23/2021 CBC/C OMPLE TE BLD COUNT W/DIF F lymphocytes, absolute count 3.65 x10'3 /uL 1.07-3 .43 high Not Available [facility] (Lab) [address] [place], [address], 07/23/2021 16:33:19 07/23/20 21 07/23/2021 CBC/C OMPLE TE BLD COUNT W/DIF F monocytes, absolute count 0.62 x10'3 /uL 0.29-0 .99 Not Available [facility] (Lab) [address] [place], [address], 07/23/2021 16:33:19 07/23/20 21 07/23/2021 CBC/C OMPLE TE BLD COUNT W/DIF F eosinophils, absolute count 0.42 x10'3 /uL 0.02-0 .53 Not Available [facility] (Lab) [address] [place], [address], 07/23/2021 16:33:19 07/23/20 21 07/23/2021 CBC/C OMPLE TE BLD COUNT W/DIF F basophils, absolute count 0.08 x10'3 /uL 0.01-0 .08 Not Available [facility] (Lab) [address] [place], [address], 07/23/2021 16:33:19 07/23/20 21 07/23/2021 CBC/C OMPLE TE BLD COUNT W/DIF F immature granulocytes ,absolute 0.03 x10'3 /uL 0.00-0 .05 Not Available [facility] (Lab) [address] [place], [address], 07/23/2021 16:33:19 07/23/20 21 07/23/2021 CBC/C OMPLE TE BLD COUNT W/DIF F nucleated red blood cells 0.0 % -0 Not Available [facility] (Lab) [address] [place], [address], 07/23/2021 16:33:19 07/23/20 21 07/23/2021 CBC/C OMPLE TE BLD COUNT W/DIF F NRBC# 0.00 x10'3 /uL Not Available [facility] (Lab) [address] [place], [address], 07/23/2021 16:33:19 07/18/20 22 07/18/2022 HEMOG LOBIN A1C HA1C 4.6 % 4.0-6. 0 Diabe fatou Scree rhonda Crite kayla: <5.7% Consi stent with absen ce of diabe fatou 5.7-6 .4% Consi stent with incre ased risk for diabe fatou (pred iabet es) >OR=6 .5% Consi stent with diabe fatou REFER ENCE: Diabe fatou Care 2016, 39(Boyer ppl.1 ):s13 -s22 Not Available [facility] (Lab) [address] [place], [address], 07/18/2022 20:26:20 07/18/20 22 07/18/2022 VITAM IN D 25-HY DROXY vd25oh 26.0 NG/mL 30-100 low Vitam in D Statu s: Defic ient: <20 ng/mL Insuf ficie nt: 20-29 ng/mL Suffi cient : 30-10 0 ng/mL Not Available [facility] (Lab) [address] [place], [address], 07/18/2022 19:16:51 07/18/20 22 07/18/2022 TSH W/REF GT FT4 TSH with reflex free T4 0.876 uIU/m L 0.465- 4.680 Not Available [facility] (Lab) [address] [place], [address], 07/18/2022 19:00:27 07/18/20 22 07/18/2022 URINA LYSIS COMPL ETE/I RIS W/RFX color light- yellow Not Available [facility] (Lab) [address] [place], [address], 07/18/2022 18:42:33 07/18/20 22 07/18/2022 URINA LYSIS COMPL ETE/I RIS W/RFX appear clear Not Available [facility] (Lab) [address] [place], [address], 07/18/2022 18:42:33 07/18/20 22 07/18/2022 URINA LYSIS COMPL ETE/I RIS W/RFX specific gravity 1.028 1.001- 1.030 Not Available [facility] (Lab) [address] [place], [address], 07/18/2022 18:42:33 07/18/20 22 07/18/2022 URINA LYSIS COMPL ETE/I RIS W/RFX pH 6.0 pH_un its 5.0-9. 0 Not Available [facility] (Lab) [address] [place], [address], 07/18/2022 18:42:33 07/18/20 22 07/18/2022 URINA LYSIS COMPL ETE/I RIS W/RFX leukocytes negati ve jose/u L negati ve- Not Available [facility] (Lab) [address] [place], [address], 07/18/2022 18:42:33 07/18/20 22 07/18/2022 URINA LYSIS COMPL ETE/I RIS W/RFX nitrite negati ve negati ve- Not Available [facility] (Lab) [address] [place], [address], 07/18/2022 18:42:33 07/18/20 22 07/18/2022 URINA LYSIS COMPL ETE/I RIS W/RFX protein negati ve mg/dL negati ve- Not Available [facility] (Lab) [address] [place], [address], 07/18/2022 18:42:33 07/18/20 22 07/18/2022 URINA LYSIS COMPL ETE/I RIS W/RFX glucose normal mg/dL normal - Not Available [facility] (Lab) [address] [place], [address], 07/18/2022 18:42:33 07/18/20 22 07/18/2022 URINA LYSIS COMPL ETE/I RIS W/RFX ketones negati ve mg/dL negati ve- Not Available [facility] (Lab) [address] [place], [address], 07/18/2022 18:42:33 07/18/20 22 07/18/2022 URINA LYSIS COMPL ETE/I RIS W/RFX urobilinogen normal mg/dL normal - Not Available [facility] (Lab) [address] [place], [address], 07/18/2022 18:42:33 07/18/20 22 07/18/2022 URINA LYSIS COMPL ETE/I RIS W/RFX bilirubin negati ve mg/dL negati ve- Not Available [facility] (Lab) [address] [place], [address], 07/18/2022 18:42:33 07/18/20 22 07/18/2022 URINA LYSIS COMPL ETE/I RIS W/RFX blood 0.03 mg/dL negati ve- abnormal Not Available [facility] (Lab) [address] [place], [address], 07/18/2022 18:42:33 07/18/20 22 07/18/2022 URINA LYSIS COMPL ETE/I RIS W/RFX white blood cells 0-8 /i??h pfi?? 0-8 Not Available [facility] (Lab) [address] [place], [address], 07/18/2022 18:42:33 07/18/20 22 07/18/2022 URINA LYSIS COMPL ETE/I RIS W/RFX red blood cells 0-4 /i??h pfi?? 0-4 Not Available [facility] (Lab) [address] [place], [address], 07/18/2022 18:42:33 07/18/20 22 07/18/2022 URINA LYSIS COMPL ETE/I RIS W/RFX bacteria none Not Available [facility] (Lab) [address] [place], [address], 07/18/2022 18:42:33 07/18/20 22 07/18/2022 URINA LYSIS COMPL ETE/I RIS W/RFX mucous occasi onal /i??l pfi?? abnormal Not Available [facility] (Lab) [address] [place], [address], 07/18/2022 18:42:33 07/18/20 22 07/18/2022 URINA LYSIS COMPL ETE/I RIS W/RFX squamous epithelial few /i??l pfi?? abnormal Not Available [facility] (Lab) [address] [place], [address], 07/18/2022 18:42:33 07/18/20 22 07/18/2022 LIPID PANEL cholesterol 158 mg/dL 140-19 9 NIH DEBBIE NSUS RECOM MENDA TION FOR ALBA STERO L: ADULT CHILD LOW RISK: <200 <170 BORDE RLINE : <200- 239 ----- HIGH RISK: >240 >200 Not Available [facility] (Lab) [address] [place], [address], 07/18/2022 18:39:28 07/18/20 22 07/18/2022 LIPID PANEL triglyceride s 195 mg/dL 0-150 high NIH DEBBIE NSUS REPOR T RECOM MENDA TION FOR TRIGL YCERI BATOOL: ADULT CHILD LOW RISK: <150 ----- BODER LINE: 150-1 99 ----- HIGH RISK: >200 ----- Not Available [facility] (Lab) [address] [place], [address], 07/18/2022 18:39:28 07/18/20 22 07/18/2022 LIPID PANEL HDL cholesterol 50 mg/dL 40- Not Available [facility] (Lab) [address] [place], [address], 07/18/2022 18:39:28 07/18/20 22 07/18/2022 LIPID PANEL [...] WILL NOT BE REPOR ARMOND. Not Available [facility] (Lab) [address] [place], [address], 07/18/2022 18:39:28 07/18/20 22 07/18/2022 COMPR EHENS LEONIDAS METAB OLIC PANEL sodium 139 mmol/ L 137-14 5 Not Available [facility] (Lab) [address] [place], [address], 07/18/2022 18:39:24 07/18/20 22 07/18/2022 COMPR EHENS LEONIDAS METAB OLIC PANEL potassium 4.1 mmol/ L 3.5-5. 1 Not Available [facility] (Lab) [address] [place], [address], 07/18/2022 18:39:24 07/18/20 22 07/18/2022 COMPR EHENS LEONIDAS METAB OLIC PANEL chloride 104 mmol/ L 98-107 Not Available [facility] (Lab) [address] [place], [address], 07/18/2022 18:39:24 07/18/20 22 07/18/2022 COMPR EHENS LEONIDAS METAB OLIC PANEL carbon dioxide 26 mmol/ L 22-30 Not Available [facility] (Lab) [address] [place], [address], 07/18/2022 18:39:24 07/18/20 22 07/18/2022 COMPR EHENS LEONIDAS METAB OLIC PANEL anion gap 13.1 mmol/ L 14-22 low Not Available [facility] (Lab) [address] [place], [address], 07/18/2022 18:39:24 07/18/20 22 07/18/2022 COMPR EHENS LEONIDAS METAB OLIC PANEL glucose 78 mg/dL 70-[address] [facility] (Lab) [address] [place], [address], 07/18/2022 18:39:24 07/18/20 22 07/18/2022 COMPR EHENS LEONIDAS METAB OLIC PANEL BUN 14 mg/dL 8-19 Not Available [facility] [facility] ([facility] [address] [place], [address], 07/18/2022 18:39:24 07/18/20 22 07/18/2022 COMPR EHENS LEONIDAS METAB OLIC PANEL creatinine 0.61 mg/dL 0.66-1 .25 low Not Available [facility] (Lab) [address] [place], [address], 07/18/2022 18:39:24 07/18/20 22 07/18/2022 COMPR EHENS LEONIDAS METAB OLIC PANEL GFR >60 Refer ence Range : Sabinal ge GFR Healt hy Adult : >60 [...] calcu lator is avail able on the [facility] websi te: https ://[email or web address] rg/pr ofess ional s/kdo qi/gf r_cal culat or Not Available [facility] (Lab) [address] [place], [address], 07/18/2022 18:39:24 07/18/20 22 07/18/2022 COMPR EHENS LEONIDSA METAB OLIC PANEL alkaline phosphatase 53 U/L 38-126 Not Available [facility] (Lab) [address] [place], [address], 07/18/2022 18:39:24 07/18/20 22 07/18/2022 COMPR EHENS LEONIDAS METAB OLIC PANEL alanine aminotransfe rase 21 U/L 0-35 Not Available [facility] (Lab) [address] [place], [address], 07/18/2022 18:39:24 07/18/20 22 07/18/2022 COMPR EHENS LEONIDAS METAB OLIC PANEL aspartate aminotransfe rase 24 U/L 15-37 Not Available [facility] (Lab) [address] [place], [address], 07/18/2022 18:39:24 07/18/20 22 07/18/2022 COMPR EHENS LEONIDAS METAB OLIC PANEL bilirubin, total 0.50 mg/dL 0.20-1 .30 Not Available [facility] (Lab) [address] [place], [address], 07/18/2022 18:39:24 07/18/20 22 07/18/2022 COMPR EHENS LEONIDAS METAB OLIC PANEL calcium 9.7 mg/dL 8.4-10 .2 Not Available [facility] (Lab) [address] [place], [address], 07/18/2022 18:39:24 07/18/20 22 07/18/2022 COMPR EHENS LEONIDAS METAB OLIC PANEL total protein 7.9 g/dL 6.3-8. 2 Not Available [facility] (Lab) [address] [place], [address], 07/18/2022 18:39:24 07/18/20 22 07/18/2022 COMPR EHENS LEONIDAS METAB OLIC PANEL albumin 4.7 g/dL 3.4-5. 0 Not Available [facility] (Lab) [address] [place], [address], 07/18/2022 18:39:24 07/18/20 22 07/18/2022 COMPR EHENS LEONIDAS METAB OLIC PANEL globulin 3.2 g/dL 2.6-4. 2 Not Available [facility] (Lab) [address] [place], [address], 07/18/2022 18:39:24 07/18/20 22 07/18/2022 COMPR EHENS LEONIDAS METAB OLIC PANEL A/G ratio 1.5 ratio 1.0-2. 0 Not Available [facility] (Lab) [address] [place], [address], 07/18/2022 18:39:24 07/18/20 22 07/18/2022 CBC/C OMPLE TE BLD COUNT W/DIF F white blood cells 8.7 x10'3 /uL 4.2-10 .8 Not Available [facility] (Lab) [address] [place], [address], 07/18/2022 18:12:51 07/18/20 22 07/18/2022 CBC/C OMPLE TE BLD COUNT W/DIF F red blood cells 4.52 x10'6 /uL 3.80-5 .20 Not Available [facility] (Lab) [address] [place], [address], 07/18/2022 18:12:51 07/18/20 22 07/18/2022 CBC/C OMPLE TE BLD COUNT W/DIF F hemoglobin 14.0 g/dL 12.0-1 5.6 Not Available [facility] (Lab) [address] [place], [address], 07/18/2022 18:12:51 07/18/20 22 07/18/2022 CBC/C OMPLE TE BLD COUNT W/DIF F hematocrit 42.2 % 35.7-4 5.7 Not Available [facility] (Lab) [address] [place], [address], 07/18/2022 18:12:51 07/18/20 22 07/18/2022 CBC/C OMPLE TE BLD COUNT W/DIF F mean red cell volume 93.4 fL 82.0-9 9.0 Not Available [facility] (Lab) [address] [place], [address], 07/18/2022 18:12:51 07/18/20 22 07/18/2022 CBC/C OMPLE TE BLD COUNT W/DIF F mean red cell hemoglobin 31.0 pg 27.0-3 3.0 Not Available [facility] (Lab) [address] [place], [address], 07/18/2022 18:12:51 07/18/20 22 07/18/2022 CBC/C OMPLE TE BLD COUNT W/DIF F mean RBC HGB concentratio n 33.2 g/dL 31.0-[address] [facility] (Lab) [address] [place], [address], 07/18/2022 18:12:51 07/18/20 22 07/18/2022 CBC/C OMPLE TE BLD COUNT W/DIF F red cell distribution width 12.7 % 11.8-1 5.5 Not Available [facility] (Lab) [address] [place], [address], 07/18/2022 18:12:51 07/18/20 22 07/18/2022 CBC/C OMPLE TE BLD COUNT W/DIF F platelets 445 x10'3 /uL 150-40 0 high Not Available [facility] (Lab) [address] [place], [address], 07/18/2022 18:12:51 07/18/20 22 07/18/2022 CBC/C OMPLE TE BLD COUNT W/DIF F mean platelet volume 11.0 fL 9.0-12 .4 Not Available [facility] (Lab) [address] [place], [address], 07/18/2022 18:12:51 07/18/20 22 07/18/2022 CBC/C OMPLE TE BLD COUNT W/DIF F neutrophils 53.7 % 39.0-7 2.0 Not Available [facility] (Lab) [address] [place], [address], 07/18/2022 18:12:51 07/18/20 22 07/18/2022 CBC/C OMPLE TE BLD COUNT W/DIF F lymphocytes 34.6 % 16.0-4 7.0 Not Available [facility] (Lab) [address] [place], [address], 07/18/2022 18:12:51 07/18/20 22 07/18/2022 CBC/C OMPLE TE BLD COUNT W/DIF F monocytes 5.9 % 5.0-12 .0 Not Available [facility] (Lab) [address] [place], [address], 07/18/2022 18:12:51 07/18/20 22 07/18/2022 CBC/C OMPLE TE BLD COUNT W/DIF F eosinophils 4.8 % 1.0-7. 0 Not Available [facility] (Lab) [address] [place], [address], 07/18/2022 18:12:51 07/18/20 22 07/18/2022 CBC/C OMPLE TE BLD COUNT W/DIF F basophils 0.7 % 0.0-2. 0 Not Available [facility] (Lab) [address] [place], [address], 07/18/2022 18:12:51 07/18/20 22 07/18/2022 CBC/C OMPLE TE BLD COUNT W/DIF F immature granulocytes 0.3 % 0.00-0 .50 Not Available [facility] (Lab) [address] [place], [address], 07/18/2022 18:12:51 07/18/20 22 07/18/2022 CBC/C OMPLE TE BLD COUNT W/DIF F neutrophils, absolute count 4.65 x10'3 /uL 1.5-8. 0 Not Available [facility] (Lab) [address] [place], [address], 07/18/2022 18:12:51 07/18/20 22 07/18/2022 CBC/C OMPLE TE BLD COUNT W/DIF F lymphocytes, absolute count 3.00 x10'3 /uL 1.07-3 .43 Not Available [facility] (Lab) [address] [place], [address], 07/18/2022 18:12:51 07/18/20 22 07/18/2022 CBC/C OMPLE TE BLD COUNT W/DIF F monocytes, absolute count 0.51 x10'3 /uL 0.29-0 .99 Not Available [facility] (Lab) [address] [place], [address], 07/18/2022 18:12:51 07/18/20 22 07/18/2022 CBC/C OMPLE TE BLD COUNT W/DIF F eosinophils, absolute count 0.42 x10'3 /uL 0.02-0 .53 Not Available [facility] (Lab) [address] [place], [address], 07/18/2022 18:12:51 07/18/20 22 07/18/2022 CBC/C OMPLE TE BLD COUNT W/DIF F basophils, absolute count 0.06 x10'3 /uL 0.01-0 .08 Not Available [facility] (Lab) [address] [place], [address], 07/18/2022 18:12:51 07/18/20 22 07/18/2022 CBC/C OMPLE TE BLD COUNT W/DIF F immature granulocytes ,absolute 0.03 x10'3 /uL 0.00-0 .05 Not Available [facility] (Lab) [address] [place], [address], 07/18/2022 18:12:51 07/18/20 22 07/18/2022 CBC/C OMPLE TE BLD COUNT W/DIF F nucleated red blood cells 0.0 % -0 Not Available [facility] (Lab) [address] [place], [address], 07/18/2022 18:12:51 07/18/20 22 07/18/2022 CBC/C OMPLE TE BLD COUNT W/DIF F NRBC# 0.00 x10'3 /uL Not Available [facility] (Lab) [address] [place], [address], 07/18/2022 18:12:51 07/24/20 23 07/24/2023 COMPR EHENS LEONIDAS METAB OLIC PANEL sodium 141 mmol/ L 137-14 5 Not Available [facility] (Lab) [address] [place], [address], 07/24/2023 18:26:21 07/24/20 23 07/24/2023 COMPR EHENS LEONIDAS METAB OLIC PANEL potassium 4.1 mmol/ L 3.5-5. 1 Not Available [facility] (Lab) [address] [place], [address], 07/24/2023 18:26:21 07/24/20 23 07/24/2023 COMPR EHENS LEONIDAS METAB OLIC PANEL chloride 105 mmol/ L 98-107 Not Available [facility] (Lab) [address] [place], [address], 07/24/2023 18:26:21 07/24/20 23 07/24/2023 COMPR EHENS LEONIDAS METAB OLIC PANEL carbon dioxide 24 mmol/ L 22-30 Not Available [facility] (Lab) [address] [place], [address], 07/24/2023 18:26:21 07/24/20 23 07/24/2023 COMPR EHENS LEONIDAS METAB OLIC PANEL anion gap 16.1 mmol/ L 14-22 Not Available [facility] (Lab) [address] [place], [address], 07/24/2023 18:26:21 07/24/20 23 07/24/2023 COMPR EHENS LEONIDAS METAB OLIC PANEL glucose 92 mg/dL 70-99 Not Available [facility] (Lab) [address] [place], [address], 07/24/2023 18:26:21 07/24/20 23 07/24/2023 COMPR EHENS LEONIDAS METAB OLIC PANEL BUN 8 mg/dL 8-19 Not Available [facility] (Lab) [address] [place], [address], 07/24/2023 18:26:21 07/24/20 23 07/24/2023 COMPR EHENS LEONIDAS METAB OLIC PANEL creatinine 0.54 mg/dL 0.66-1 .25 low Not Available [facility] (Lab) [address] [place], [address], 07/24/2023 18:26:21 07/24/20 23 07/24/2023 COMPR EHENS LEONIDAS METAB OLIC PANEL GFR >60 Refer ence Range : Sabinal ge GFR Healt hy Adult : >60 [...] ethni c subgr oups, such as [facility] nics. Outsi de the valid [...] calcu lator is avail able on the [facility] websi te: https ://[email or web address] rg/pr ofess ional s/kdo qi/gf r_cal culat or Not Available [facility] (Lab) [address] [place], [address], 07/24/2023 18:26:21 07/24/20 23 07/24/2023 COMPR EHENS LEONIDAS METAB OLIC PANEL alkaline phosphatase 50 U/L 38-126 Not Available [facility] (Lab) [address] [place], [address], 07/24/2023 18:26:21 07/24/20 23 07/24/2023 COMPR EHENS LEONIDAS METAB OLIC PANEL alanine aminotransfe rase 19 U/L 0-35 Not Available [facility] (Lab) [address] [place], [address], 07/24/2023 18:26:21 07/24/20 23 07/24/2023 COMPR EHENS LEONIDAS METAB OLIC PANEL aspartate aminotransfe rase 22 U/L 15-37 Not Available [facility] (Lab) [address] [place], [address], 07/24/2023 18:26:21 07/24/20 23 07/24/2023 COMPR EHENS LEONIDAS METAB OLIC PANEL bilirubin, total 0.30 mg/dL 0.20-1 .30 Not Available [facility] (Lab) [address] [place], [address], 07/24/2023 18:26:21 07/24/20 23 07/24/2023 COMPR EHENS LEONIDAS METAB OLIC PANEL calcium 10.0 mg/dL 8.4-10 .2 Not Available [facility] (Lab) [address] [place], [address], 07/24/2023 18:26:21 07/24/20 23 07/24/2023 COMPR EHENS LEONIDAS METAB OLIC PANEL total protein 7.9 g/dL 6.3-8. 2 Not Available [facility] (Lab) [address] [place], [address], 07/24/2023 18:26:21 07/24/20 23 07/24/2023 COMPR EHENS LEONIDAS METAB OLIC PANEL albumin 4.5 g/dL 3.4-5. 0 Not Available [facility] (Lab) [address] [place], [address], 07/24/2023 18:26:21 07/24/20 23 07/24/2023 COMPR EHENS LEONIDAS METAB OLIC PANEL globulin 3.4 g/dL 2.6-4. 2 Not Available [facility] (Lab) [address] [place], [address], 07/24/2023 18:26:21 07/24/20 23 07/24/2023 COMPR EHENS LEONIDAS METAB OLIC PANEL A/G ratio 1.3 ratio 1.0-2. 0 Not Available [facility] (Lab) [address] [place], [address], 07/24/2023 18:26:21 07/24/20 23 07/24/2023 LIPID PANEL cholesterol 171 mg/dL 140-19 9 NIH DEBBIE NSUS RECOM MENDA TION FOR ALBA STERO L: ADULT CHILD LOW RISK: <200 <170 BORDE RLINE : <200- 239 ----- HIGH RISK: >240 >200 Not Available [facility] (Lab) [address] [place], [address], 07/24/2023 18:26:24 07/24/20 23 07/24/2023 LIPID PANEL triglyceride s 206 mg/dL 0-150 high NIH DEBBIE NSUS REPOR T RECOM MENDA TION FOR TRIGL YCERI BATOOL: ADULT CHILD LOW RISK: <150 ----- BODER LINE: 150-1 99 ----- HIGH RISK: >200 ----- Not Available [facility] (Lab) [address] [place], [address], 07/24/2023 18:26:24 07/24/20 23 07/24/2023 LIPID PANEL HDL cholesterol 48 mg/dL 40- Not Available [facility] (Lab) [address] [place], [address], 07/24/2023 18:26:24 07/24/20 23 07/24/2023 LIPID PANEL [...] WILL NOT BE REPOR ARMOND. Not Available [facility] (Lab) [address] [place], [address], 07/24/2023 18:26:24 07/24/20 23 07/24/2023 CBC/C OMPLE TE BLD COUNT W/DIF F white blood cells 9.4 x10'3 /uL 4.2-10 .8 Not Available [facility] (Lab) [address] [place], [address], 07/24/2023 18:28:06 07/24/20 23 07/24/2023 CBC/C OMPLE TE BLD COUNT W/DIF F red blood cells 4.43 x10'6 /uL 3.80-5 .20 Not Available [facility] (Lab) [address] [place], [address], 07/24/2023 18:28:06 07/24/20 23 07/24/2023 CBC/C OMPLE TE BLD COUNT W/DIF F hemoglobin 14.2 g/dL 12.0-1 5.6 Not Available [facility] (Lab) [address] [place], [address], 07/24/2023 18:28:06 07/24/20 23 07/24/2023 CBC/C OMPLE TE BLD COUNT W/DIF F hematocrit 41.9 % 35.7-4 5.7 Not Available [facility] (Lab) [address] [place], [address], 07/24/2023 18:28:06 07/24/20 23 07/24/2023 CBC/C OMPLE TE BLD COUNT W/DIF F mean red cell volume 94.6 fL 82.0-9 9.0 Not Available [facility] (Lab) [address] [place], [address], 07/24/2023 18:28:06 07/24/20 23 07/24/2023 CBC/C OMPLE TE BLD COUNT W/DIF F mean red cell hemoglobin 32.1 pg 27.0-3 3.0 Not Available [facility] (Lab) [address] [place], [address], 07/24/2023 18:28:06 07/24/20 23 07/24/2023 CBC/C OMPLE TE BLD COUNT W/DIF F mean RBC HGB concentratio n 33.9 g/dL 31.0-3 6.0 Not Available [facility] (Lab) [address] [place], [address], 07/24/2023 18:28:06 07/24/20 23 07/24/2023 CBC/C OMPLE TE BLD COUNT W/DIF F red cell distribution width 12.3 % 11.8-1 5.5 Not Available [facility] (Lab) [address] [place], [address], 07/24/2023 18:28:06 07/24/20 23 07/24/2023 CBC/C OMPLE TE BLD COUNT W/DIF F platelets 380 x10'3 /uL 150-40 0 Not Available [facility] (Lab) [address] [place], [address], 07/24/2023 18:28:06 07/24/20 23 07/24/2023 CBC/C OMPLE TE BLD COUNT W/DIF F mean platelet volume 11.9 fL 9.0-12 .4 Not Available [facility] (Lab) [address] [place], [address], 07/24/2023 18:28:06 07/24/20 23 07/24/2023 CBC/C OMPLE TE BLD COUNT W/DIF F neutrophils 57.5 % 39.0-7 2.0 Not Available [facility] (Lab) [address] [place], [address], 07/24/2023 18:28:06 07/24/20 23 07/24/2023 CBC/C OMPLE TE BLD COUNT W/DIF F lymphocytes 33.3 % 16.0-[address] [facility] (Lab) [address] [place], [address], 07/24/2023 18:28:06 07/24/2007/24/2023 CBC/C OMPLE TE BLD COUNT W/DIF F monocytes 4.8 % 5.0-12 .0 low Not Available [facility] (Lab) [address] [place], [address], 07/24/2023 18:28:06 07/24/20 23 07/24/2023 CBC/C OMPLE TE BLD COUNT W/DIF F eosinophils 3.0 % 1.0-7. 0 Not Available [facility] (Lab) [address] [place], [address], 07/24/2023 18:28:06 07/24/20 23 07/24/2023 CBC/C OMPLE TE BLD COUNT W/DIF F basophils 1.0 % 0.0-2. 0 Not Available [facility] (Lab) [address] [place], [address], 07/24/2023 18:28:06 07/24/20 23 07/24/2023 CBC/C OMPLE TE BLD COUNT W/DIF F immature granulocytes 0.4 % 0.00-0 .50 Not Available [facility] (Lab) [address] [facility] [place], [address], 07/24/2023 18:28:06 07/24/20 23 07/24/2023 CBC/C OMPLE TE BLD COUNT W/DIF F neutrophils, absolute count 5.38 x10'3 /uL 1.5-8. 0 Not Available [facility] (Lab) [address] [place], [address], 07/24/2023 18:28:06 07/24/20 23 07/24/2023 CBC/C OMPLE TE BLD COUNT W/DIF F lymphocytes, absolute count 3.11 x10'3 /uL 1.07-3 .43 Not Available [facility] (Lab) [address] [place], [address], 07/24/2023 18:28:06 07/24/20 23 07/24/2023 CBC/C OMPLE TE BLD COUNT W/DIF F monocytes, absolute count 0.45 x10'3 /uL 0.29-0 .99 Not Available [facility] (Lab) [address] [place], [address], 07/24/2023 18:28:06 07/24/20 23 07/24/2023 CBC/C OMPLE TE BLD COUNT W/DIF F eosinophils, absolute count 0.28 x10'3 /uL 0.02-0 .53 Not Available [facility] (Lab) [address] [place], [address], 07/24/2023 18:28:06 07/24/20 23 07/24/2023 CBC/C OMPLE TE BLD COUNT W/DIF F basophils, absolute count 0.09 x10'3 /uL 0.01-0 .08 high Not Available [facility] (Lab) [address] [place], [address], 07/24/2023 18:28:06 07/24/20 23 07/24/2023 CBC/C OMPLE TE BLD COUNT W/DIF F immature granulocytes ,absolute 0.04 x10'3 /uL 0.00-0 .05 Not Available [facility] (Lab) [address] [place], [address], 07/24/2023 18:28:06 07/24/20 23 07/24/2023 CBC/C OMPLE TE BLD COUNT W/DIF F nucleated red blood cells 0.0 % -0 Not Available [facility] (Lab) [address] [place], [address], 07/24/2023 18:28:06 07/24/20 23 07/24/2023 CBC/C OMPLE TE BLD COUNT W/DIF F NRBC# 0.00 x10'3 /uL Not Available [facility] (Lab) [address] [place], [address], 07/24/2023 18:28:06 07/24/20 23 07/24/2023 VITAM IN D 25-HY DROXY vd25oh 41.4 NG/mL 30-100 Vitam in D Statu s: Defic ient: <20 ng/mL Insuf ficie nt: 20-29 ng/mL Suffi cient : 30-10 0 ng/mL Not Available [facility] (Lab) [address] [place], [address], 07/24/2023 18:34:10 07/24/20 23 07/24/2023 T4 FREE free T4 1.13 NG/dL 0.78-2 .19 Not Available [facility] (Lab) [address] [place], [address], 07/24/2023 18:35:06 07/24/20 23 07/24/2023 TSH thyroid-stim ulating hormone 1.040 uIU/m L 0.465- 4.680 Not Available [facility] (Lab) [address] [place], [address], 07/24/2023 18:49:35 07/24/20 23 07/24/2023 VITAM IN B12 (CHAZ BIJAN ) vb12 547 pg/mL 239-93 1 Not Available [facility] (Lab) [address] [place], [address], 07/24/2023 19:23:24 07/24/2007/24/2023 FOLAT E, SERUM /PLAS MA folate 15.6 NG/mL 2.76-2 0.0 Not Available [facility] (Lab) [address] [place], [address], 07/24/2023 19:23:25 07/24/2007/24/2023 HEMOG LOBIN A1C HA1C 4.5 % 4.0-6. 0 Diabe fatou Scree rhonda Crite kayla: <5.7% Consi stent with absen ce of diabe fatou 5.7-6 .4% Consi stent with incre ased risk for diabe fatou (pred iabet es) >OR=6 .5% Consi stent with diabe fatou REFER ENCE: Diabe fatou Care 2016, 39(Boyer ppl.1 ):s13 -s22 Not Available [facility] (Lab) [address] [place], [address], 07/24/2023 21:15:55 Result Notes None recorded. Problems Name Problem SNOMED Code Status Onset Date Resolution Date Notes Provider Name and Address Organization Details Recorded Time Milanagia 24113509 Active 2021 Not Available [employer] 3 06:52:24 Low back pain 436181040 Active Erinn Dial, [employer] [address], [place], [address] , [facility] [employer] [facility] [employer] [facility] 4 14:16:03 Vitamin D deficiency 86182178 Active 2021 Erinn Dial APRN [address], [address], [place], [address] , [facility] [employer] [facility] 4 14:16:11 Thrombocytosi s 6043246 Active 2021 Not Available [facility] 3 06:52:24 Psoriasis 5408875 Active 2022 Erinn Dial APRN [address], [address], [place], [address] , [employer] [facility] [employer] [facility] 4 14:16:06 Chronic otitis externa 96711733 Active 2022 Not Available [facility] 3 06:52:24 Fatigue 54676497 Active 2022 Erinn Dial APRN [address], [facility] [address], [place], [address] , [employer] [facility] [employer] [facility] 4 14:20:30 Insomnia 513468682 Active 2022 Erinn Dial APRN [address], [place] [address], [place], [address] , [employer] [facility] [employer] [facility] 4 14:16:01 Problem Notes None recorded. Procedures Surgical History Date Name Laterality Status Provider Name and Address Organization Details Recorded Time tonsilectomy /adenoids completed Not Available [facility] 11/02/2022 16:54:04 [place] Teeth completed Not Available [facility] 11/02/2022 16:54:04 Imaging Results None recorded. Procedure Notes None recorded. Medical Equipment None Reported. Allergies Allergen ID Allergen Name Allergen Category Reaction Reaction Severity Criticality Documentation Date Start Date Code Code System Note Provider Name and Address Organization Details Recorded Time 00169 Product containin g penicilli n (product) medicatio n hives Not available Not available 11/02/2022 43376 8001 SNOMED Not Available [facility] 3 16:55:10 76719 morphine medicatio n hives Not available Not available 11/02/2022 7052 RxNorm Not Available [facility] 3 16:55:10 64527 Augmentin medicatio n hives Not available Not available 11/02/2022 25741 2 RxNorm Not Available [facility] 3 16:55:11 Medications Name Sig Start Date [...] % 98 % 85 /min 97.9 [degF] 49570.1 2 g 118 mm[Hg] 76 mm[Hg] Not Available [facility] 3 16:54:09 Date Recorded Body mass index (BMI) Body height Oxygen saturation Oxygen saturation in Arterial blood by Pulse oximetry Heart rate Body temperature Body weight Systolic blood pressure Diastolic blood pressure Provider Name and Address Organization Details Last Updated DateTime 2 21.8 kg/m2 167.64 cm 100 % 100 % 92 /min 97.7 [degF] 00289.9 7 g 116 mm[Hg] 74 mm[Hg] Not Available [facility] 3 16:[facility]:09 Date Recorded Body height Provider Name an d Address Organization Details Last Updated DateTime 03/30/2022 167.64 cm Not Available [facility] 3 16:54:09 Date Recorded Body height Body mass index (BMI) Body weight Body temperature Heart rate Oxygen saturation Oxygen saturation in Arterial blood by Pulse oximetry Systolic blood pressure Diastolic blood pressure Provider Name and Address Organization Details Last Updated DateTime 3 167.64 cm 23.2 kg/m2 25635.3 g 97.4 [degF] 98 /min 99 % 99 % 126 mm[Hg] 74 mm[Hg] Luz Maria Joaquin MA [facility] [employer] 3 15:21:40 Date Recorded Body height Body mass index (BMI) Body weight Body temperature Heart rate Systolic blood pressure Diastolic blood pressure Provider Name and Address Organization Details Last Updated DateTime 4 167.64 cm 24.5 kg/m2 30509.0 4 g 97.4 [degF] 84 /min 120 mm[Hg] 76 mm[Hg] [facility] [employer] [facility] 4 10:14:51 Social History Question Answer Notes LastModified by Organization Details LastModified Time Tobacco Smoking Status Former Smoker quit 2019 BOY Olivarez [place] [facility] 08/05/2024 10:12:35 Do You Have An Advance Directive? No [id number] Information not available 11/02/2022 What Is Your Level Of Alcohol Consumption? Occasional [id number] Information not available 11/02/2022 What Is Your Level Of Caffeine Consumption? Heavy [id number] Information not available 11/02/2022 How Much Tobacco Do You Chew? None [id number] Information not available 11/02/2022 In The 14 Days Before Symptom Onset, Have You Had Close Contact With A Laboratory-confi rmed COVID-19 While That Case Was Ill? No [id number] Information not available 11/02/2022 In The 14 Days Before Symptom Onset, Have You Had Close Contact With A Person Who Is Under Investigation For COVID-19 While That Person Was Ill? No [id number] Information not available 11/02/2022 Are You Currently Employed? Yes Information not available 08/05/2024 What Type Of Diet Are You Following? REGULAR [id number] Information not available 11/02/2022 Which Illicit Or Recreational Drugs Have You Used? None [id number] Information not available 11/02/2022 Do You Or Have You Ever Used E-cigarettes Or Vape? Former User Of Electronic Cigarettes Information not available 08/05/2024 What Is The Highest Grade Or Level Of School You Have Completed Or The Highest Degree You Have Received? [place]35296-8 [id number] Information not available 11/02/2022 What Is Your Occupation? [employer] MIGRATION.300 [id number] Information not available 11/02/2022 Have There Been Any Changes To Your Family Or Social Situation? No MIGRATION.030 [id number] Information not available 11/02/2022 What Is The Fluoride Status Of Your Home? Unknown MIGRATION.030 020711 Information not available 11/02/2022 When Did You Quit Smoking? 1-5yearssincelastoskar trammell Information not available 08/05/2024 Are There Any Guns Present In Your Home? Yes MIGRATION.030 [id number] Information not available 11/02/2022 Where Do You Live? [place] MIGRATION.0301 [id number] Information not available 11/02/2022 Do You Have A Medical Power Of Delinquent Tax Collector? No MIGRATION.0301 [id number] Information not available 11/02/2022 What Was The Date Of Your Most Recent Tobacco Screening? 08/05/2024 Information not available 08/05/2024 Do You Have Any Pets? Yes MIGRATION.0301 [id number] Information not available 11/02/2022 What Is Your Relationship Status? Information not available 08/05/2024 Do You Use Your Seat Belt Or Car Seat Routinely? Yes MIGRATION.0301 [id number] Information not available 11/02/2022 Do You Have Smoke And Carbon Monoxide Detectors In Your Home? Yes MIGRATION.0301 138882 Information not available 11/02/2022 Are You Passively Exposed To Smoke? No MIGRATION.0301 127818 Information not available 11/02/2022 Do You Or Have You Ever Used Smokeless Tobacco? Never Used Smokeless Tobacco MIGRATION.0301 587257 Information not available 11/02/2022 Are There Any Smokers In Your House? No MIGRATION.0301 404120 Information not available 11/02/2022 Do You Feel Stressed (tense, Restless, Nervous, Or Anxious, Or Unable To Sleep At Night)? [id number] MIGRATION.0301 512536 Information not available 11/02/2022 Do You Use Any Illicit Or Recreational Drugs? No MIGRATION.0301 690382 Information not available 11/02/2022 Do You Use Sunscreen Routinely? Yes MIGRATION.0301 398348 Information not available 11/02/2022 How Many Years Have You Smoked Tobacco? 10 MIGRATION.0301 899863 Information not available 11/02/2022 Have You Recently Traveled Abroad? No MIGRATION.0301 386492 Information not available 11/02/2022 Do You Have Any Dietary Restrictions? No MIGRATION.0301 212500 Information not available 11/02/2022 Do You Or Have You Ever Used Any Other Forms Of Tobacco Or Nicotine? No MIGRATION.0301 091754 Information not available 11/02/2022 Sex: Unknown Functional Status Question Answer Note LastModified by Organizat ion Details LastModified Time What is your exercise level? Occasional [id number] Information not available 11/02/2022 Mental Status None recorded. Family History Relationship Description Onset Age of this Age Resolved Age Notes LastModified by Organization Details LastModified Time Father Hypertensive disorder MIGRATION.143 [id number] Not available 11/02/2022 16:54:04 Mother History of thyroid disorder MIGRATION.144 [id number] Not available 11/02/2022 16:54:04 Medical History Condition Response NERVE DISEASE N BLINDNESS N RHEUMATIC FEVER N KIDNEY STONES N BLADDER PROBLEMS N MRSA N OTHER # 1 N POLIO N LUNG DISEASE/DISORDER N RADIATION / CHEMOTHERAPY N COPD N Other # 2 N BLOOD DISEASES N EAR OR HEARING PROBLEMS N MUMPS N BOWEL PROBLEMS N DEPRESSION (INCLUDING POST ) N STROKE/TIA N ULCERS N BENIGN PROSTATIC HYPERPLASIA N MEASLES N MYOCARDIAL INFARCTION N OBESITY N GERD/NAUSEA N ANEURYSM N URINARY/BLADDER/KIDNEY PROBLEMS N CORONARY ARTERY DISEASE (CAD) N ADDICTION CONCERNS N ENDOMETRIOSIS N Impotence N USE OF BLOOD THINNERS N SKIN [...] APNEA N CHICKENPOX N INFECTIOUS DISEASE N HEART ARRHYTHMIA N PROSTATE N INSOMNIA N HIGH CHOLESTEROL / HYPERLIPIDEMIA N HYPERTHYROIDISM N EYE PROBLEMS N EDEMA N CHRONIC PAIN SYNDROME N HYPOTHYROIDISM N CAROTID BLOCKAGE N CONSTIPATION N BACK / NECK PROBLEMS Y HAVE YOU BEEN HOSPITALIZED OR SEEN IN [facility] IN THE PAST YEAR ? N ATHEROSCLEROSIS N BREAST PROBLEMS N DIALYSIS N ECZEMA N OSTEOPOROSIS N ARTHRITIS N APPENDICITIS N DIABETES, TYPE N BAD TEETH N ENT N HEARTBURN / REFLUX N AUTISM SPECTRUM DISORDER (ASD) N HEPATITIS / LIVER DISEASE N GOUT N SLEEP DISORDER N ALZHEIMER'S DISEASE N Brain Problems N HERPES N DEMENTIA N HEADACHES/MIGRAINES N SEIZURES/EPILEPSY N VASCULAR DISEASE N PACEMAKER N Blood Disorder N DIZZINESS N HEART DISEASE/HEART PROBLEMS N KIDNEY DISEASE N MULTIPLE SCLEROSIS N CARDIAC ARRHYTHMIA N CANCER: SPECIFY N ATRIAL FIBRILLATION N Gall Stones N [...] SNOMED-CT Code Diagnosis ICD10 Code Diagnosis Note [id number] [facility] [address] [place], [place] [address], [address] [address] 01/22/2021 00:00:00 01/22/2021 20:15:26 [id number] [facility] [address] [place] [address] 04/12/2021 00:00:00 04/12/2021 21:06:46 [id number] [facility] Cj hazel [address] [place] [address] reuben Foy, [place] [address] 07/26/2021 00:00:00 07/26/2021 20:04:49 [id number] [facility] Cj hazel [address] [place] [address] y , [place] [address] 03/30/2022 00:00:00 03/30/2022 13:10:57 [id number] [facility] [address] [place] [address] 1 07/18/2022 00:00:00 07/18/2022 14:29:27 [id number] ERIK Griffin [facility] [address] [place] [address] 07/24/2023 15:08:46 07/24/2023 15:41:28 Adult health examination [id number] Z00.01 Psoriasis 3312059 L40.9 Get appointmen t with Derm per her request-Dr Lulú Lovell Chronic ot itis externa [id number] H60.60 Get appointmen t with ENT per her request-Dr Lulú Dykes Vitamin D deficiency [phone] 87594 E55.9 Has not been taking her supplement Check labs Fatigue 99052253 R53.83 Check labs Insomnia [id number] G47.0 0 Wants to avoid sleeping pills if possible so she is able to wake for her toddler if she needs her Will have her try some OTC melatonin Call office if this does not improve with the melatonin Hyperlipid emia screening 829125505 Z13.220 Diabetes m ellitus screening 639514564 Z13.1 Depression screening 171 724723 Z13.31 Body mass index 20-24 - normal 020855276 Z68.23 recommend healthy, well balanced mealsfocus on lean meats, fresh vegetables , fresh fruits, whole grainsredu ce fast/proce ssed foods or eating out to no more than 1-2 times per weekaim to get 30 min of exercise most days of the week- walking is a great choicealso recommend resistance training 2-3 times per week [id number] Erinn Dial APRN [facility] Internal Med [facility] [address] [facility], [place] [address] 08/05/2024 10:02:08 08/05/2024 10:45:26 Vitamin D deficiency 23224177 E55.9 Diabetes m krystalitus screening 488105094 Z13.1 Hyperlipid emia screening 298595523 Z13.220 Screening for disorder 983456716 Z13.9 Thyroid di sorder screening 590930839 Z13.29 Hepatitis C screening 41 6532080 Z11.59 Health Concerns Section Related Observation LastModified by Organization Detai ls LastModified Time None Recorded Concern Status LastModified by Organization Details LastModified Time None Recorded Advance Directives Directive N: Payers Encounter Date Sequence Insurance Name Policy Number Policy Garza Covered Member ID Garza Member ID Guarantor Name 07/24/2023 1 [employer] ([employer]) [employer] Mary E Tinnon [id number] Mary E Tinnon 08/05/2024 1 [employer] [id number] Mary E Tinnon [id number] Mary E Tinnon Notes Date Note Type Note Provider Name and Address Organization Details Recorded Time 07/24/2023 text/html Mary presents today for annual wellness exam. She reports she did get her labs done last time and she needs new orders. 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 She has new insurance now so she [...] flu vaccine today. Hilary Mccall, BINA-C [address] [facility], [facility] [address], [place], [address], [employer] 07/24/2023 16:18:31 08/05/2024 text/html Mary presents today to establish care as her previous provider has left the area. She denies any illnesses or injuries since visit to previous provider. She states that her insomnia has improved since she moved her toddler out of her bed. Erinn Dial APRN [address] [facility], [facility] [address], [place], [address], [employer] 08/05/2024 10:45:35 OBGyn Episode No OBEpisode recorded.
== END 2024-12-16 14:08 | disposition home or self-care (01) ==
LOC: ANHCARD 14:13
PROVIDERS: PCP Nurse Practitioner Family; Visit Provider Student in an Organized Health Care Education/Training Program
DX: R00.2 Palpitations (principal)
CPT/HCPCS: 93242

== ENCOUNTER 2025-02-03 11:23 | Outpatient (CLI) | payer OTHER, SELFPAY ==
--- OUTSIDE RECORDS SUMMARY | 2025-02-03 11:56 | XMS_ITS | Data Portability ---
Author Organization [place] [facility] [employer], Main Office Address [address] [place] [address] Assessment Encounter Date Assessment Date Assessment LastModified by Organization Details LastModified Time 07/24/2023 07/24/2023 [employer]- [employer]- 07/24/23 Call office if worse, ER if life-threatening illness RTC in 1 year and p.r.n. She voices understanding of plan and agrees [email or web address] Not available 07/24/2023 16:15:19 Plan of Treatment Reminders Order Date Submit Date Provider Last Modified By Organization Details Last Modified Time Details Appointments None recorded. Lab CBC w/ auto diff 2023 024 [email or web address] [facility], [address], [place], [address], 4 10:44:28 CMP, serum or plasma 2023 024 [email or web address] [facility], [address], [place], [address], 4 10:44:29 lipid panel, serum 2023 024 [email or web address] [facility], [address], [place], [address], 4 12:54:28 TSH + free T4, serum 2023 024 [email or web address] [facility], [address], [place], [address], 4 10:44:31 vitamin D, 25-hydroxy , total, serum 2023 024 [employer] [facility], [address], [place], [address], 4 12:54:29 hepatitis C virus Ab, serum 2023 024 [email or web address], [address], [place], [address], 4 12:54:29 HbA1c (hemoglobi n A1c), blood 2023 024 [employer] [facility], [address], [place], [address], 4 12:54:29 lipid panel, serum 2022 023 NEELA Not available 3 18:26:24 CMP, serum or plasma 2022 023 NEELA Not available 3 18:26:22 CBC w/ auto diff 2022 023 NEELA Not available 3 18:28:06 TSH + free T4, serum 2022 023 Not available 3 14:34:54 vitamin B12 + folate, serum or blood 2022 023 Not available 3 14:34:54 vitamin D, 25-hydroxy , total, serum 2022 023 Not available 3 14:34:54 HbA1c (hemoglobi n A1c), blood 2022 023 Not available 3 14:34:54 Referral otolaryngo logist referral 2022 023 [email or web address] Slim Dykes MD, [address] [place], [address], 4 09:08:37 dermatolog ist referral 2022 023 [email or web address] Clint Villanueva MD, [address] [facility], [facility], [place], [address], 4 09:08:38 Procedures None recorded. Surgeries None recorded. Imaging None recorded. Medication Orders None recorded. Patient TargetsNo targets recorded. Patient Instructions Encounter Date Encounter Id Patient Instructions Last Modified By Organization Details Last Modified Time 07/24/2023 [id number] INFLUENZA VACCIN E Recommended today, but patient declined TD/TDAP Patient will get at local pharmacy/health department MAMMOGRAM No screening indicated at this time/ no family history CERVICAL SCREENING/PELVIC EXAMINATION No screening necessary patient is up to date COLORECTAL SCREENING No screening necessary until age 45 DEPRESSION SCREENING Negative BMI Appropriate NUTRITION Continue healthy eating & exercise PHYSICAL ACTIVITY Appropriate Recommendation of 30 minutes of daily activity VISION Recommended today ALCOHOL USE Occasional/Social Use TOBACCO USE current tobacco use Patient is not interested in smoking cessation at this time- Handout given GLUCOSE SCREENING Ordered LIPID SCREENING Ordered [email or web address] Not available 07/24/2023 16:18:14 08/05/2024 [id number] Follow up in 6 months Obtain labs Tests: Referral: Recommend: Tetanus vaccine [email or web address] Not available 08/05/2024 10:36:17 Reason for Referral Leaf Binner Referral fo r Chronic otitis externa Referring Physician: Hilary Mccall, Internal Medicine, Encounter Date: 07/24/2023 [employer]sperson Referral for P soriasis Referring Physician: Hilary Mccall, Internal Medicine, Encounter Date: 07/24/2023 Results Created Date Observation Date Name Description Value Unit Range Abnormal Flag Note LastModifiedBy Organization Detail LastModifiedTime 07/23/20 21 07/23/2021 HEMOG LOBIN A1C HA1C 4.8 % 4.0-6. 0 Diabe fatou Scree rhonda Crite kayla: <5.7% Consi stent with absen ce of diabe fatou 5.7-6 .4% Consi stent with incre ased risk for diabe fatou (pred iabet es) >OR=6 .5% Consi stent with diabe fatou REFER ENCE: Diabe fatou Care 2016, 39( ppl.1 ):s13 -s22 Not Available [facility] (Lab) [address] [place], [address], 07/23/2021 20:20:55 07/23/20 21 07/23/2021 TSH thyroid-stim ulating hormone 0.766 uIU/m L 0.465- 4.680 Not Available [facility] (Lab) [address] [place], [address], 07/23/2021 17:41:30 07/23/20 21 07/23/2021 T4 FREE free T4 1.07 NG/dL 0.78-2 .19 Not Available [facility] (Lab) [address] [place], [address], 07/23/2021 17:30:51 07/23/20 21 07/23/2021 VITAM IN D 25-HY DROXY vd25oh 42.0 NG/mL 30-100 Vitam in D Statu s: Defic ient: <20 ng/mL Insuf ficie nt: 20-29 ng/mL Suffi cient : 30-10 0 ng/mL Not Available [facility] (Lab) [address] [place], [address], 07/23/2021 17:29:50 07/23/20 21 07/23/2021 LIPID PANEL cholesterol 160 mg/dL 140-19 9 NIH DEBBIE NSUS RECOM MENDA TION FOR ALBA STERO L: ADULT CHILD LOW RISK: <200 <170 BORDE RLINE : <200- 239 ----- HIGH RISK: >240 >200 Not Available [facility] (Lab) [address] [place], [address], 07/23/2021 17:16:36 07/23/20 21 07/23/2021 LIPID PANEL triglyceride s 131 mg/dL 0-150 NIH DEBBIE NSUS REPOR T RECOM MENDA TION FOR TRIGL YCERI BATOOL: ADULT CHILD LOW RISK: <150 ----- BODER LINE: 150-1 99 ----- HIGH RISK: >200 ----- Not Available [facility] (Lab) [address] [place], [address], 07/23/2021 17:16:36 07/23/20 21 07/23/2021 LIPID PANEL HDL cholesterol 49 mg/dL 40- Not Available [facility] (Lab) [address] [place], [address], 07/23/2021 17:16:36 07/23/20 21 07/23/2021 LIPID PANEL [...] WILL NOT BE REPOR ARMOND. Not Available [facility] (Lab) [address] [place], [address], 07/23/2021 17:16:36 07/23/20 21 07/23/2021 COMPR EHENS LEONIDAS METAB OLIC PANEL sodium 143 mmol/ L 137-14 5 Not Available [facility] (Lab) [address] [place], [address], 07/23/2021 17:16:31 07/23/20 21 07/23/2021 COMPR EHENS LEONIDAS METAB OLIC PANEL potassium 4.1 mmol/ L 3.5-5. 1 Not Available [facility] (Lab) [address] [place], [address], 07/23/2021 17:16:31 07/23/20 21 07/23/2021 COMPR EHENS LEONIDAS METAB OLIC PANEL chloride 107 mmol/ L 98-107 Not Available [facility] (Lab) [address] [place], [address], 07/23/2021 17:16:31 07/23/20 21 07/23/2021 COMPR EHENS LEONIDAS METAB OLIC PANEL carbon dioxide 25 mmol/ L 22-30 Not Available [facility] (Lab) [address] [place], [address], 07/23/2021 17:16:31 07/23/20 21 07/23/2021 COMPR EHENS LEONIDAS METAB OLIC PANEL agap 15.1 mmol/ L 14-22 Not Available [facility] (Lab) [address] [place], [address], 07/23/2021 17:16:31 07/23/20 21 07/23/2021 COMPR EHENS LEONIDAS METAB OLIC PANEL glucose 77 mg/dL 70-99 Not Available [facility] (Lab) [address] [place], [address], 07/23/2021 17:16:31 07/23/20 21 07/23/2021 COMPR EHENS LEONIDAS METAB OLIC PANEL BUN 13 mg/dL 8-19 Not Available [facility] (Lab) [address] [place], [address], 07/23/2021 17:16:31 07/23/20 21 07/23/2021 COMPR EHENS LEONIDAS METAB OLIC PANEL creatinine 0.67 mg/dL 0.66-1 .25 Not Available [facility] (Lab) [address] [place], [address], 07/23/2021 17:16:31 07/23/20 21 07/23/2021 COMPR EHENS LEONIDAS METAB OLIC PANEL GFR >60 Refer ence Range : Rarden ge GFR Healt hy Adult : >60 [...] calcu lator is avail able on the [facility] websi te: https :[email or web address] rg/pr ofess ional s/kdo qi/gf r_cal culat or Not Available [facility] (Lab) [address] [place], [address], 07/23/2021 17:16:31 07/23/20 21 07/23/2021 COMPR EHENS LEONIDAS METAB OLIC PANEL alkaline phosphatase 64 U/L 38-126 Not Available [facility] (Lab) [address] [place], [address], 07/23/2021 17:16:31 07/23/20 21 07/23/2021 COMPR EHENS LEONIDAS METAB OLIC PANEL alanine aminotransfe rase 17 U/L 0-35 Not Available [facility] (Lab) [address] [place], [address], 07/23/2021 17:16:31 07/23/20 21 07/23/2021 COMPR EHENS LEONIDAS METAB OLIC PANEL aspartate aminotransfe rase 22 U/L 15-37 Not Available [facility] (Lab) [address] [place], [address], 07/23/2021 17:16:31 07/23/20 21 07/23/2021 COMPR EHENS LEONIDAS METAB OLIC PANEL bilirubin, total 0.30 mg/dL 0.20-1 .30 Not Available [facility] (Lab) [address] [place], [address], 07/23/2021 17:16:31 07/23/20 21 07/23/2021 COMPR EHENS LEONIDAS METAB OLIC PANEL calcium 10.4 mg/dL 8.4-10 .2 high Not Available [facility] (Lab) [address] [place], [address], 07/23/2021 17:16:31 07/23/20 21 07/23/2021 COMPR EHENS LEONIDAS METAB OLIC PANEL total protein 7.7 g/dL 6.3-8. 2 Not Available [facility] (Lab) [address] [place], [address], 07/23/2021 17:16:31 07/23/20 21 07/23/2021 COMPR EHENS LEONIDAS METAB OLIC PANEL albumin 4.8 g/dL 3.4-5. 0 Not Available [facility] (Lab) [address] [place], [address], 07/23/2021 17:16:31 07/23/20 21 07/23/2021 COMPR EHENS LEONIDAS METAB OLIC PANEL globulin 2.9 g/dL 2.6-4. 2 Not Available [facility] (Lab) [address] [place], [address], 07/23/2021 17:16:31 07/23/20 21 07/23/2021 COMPR EHENS LEONIDAS METAB OLIC PANEL A/G ratio 1.7 ratio 1.0-2. 0 Not Available [facility] (Lab) [address] [place], [address], 07/23/2021 17:16:31 07/23/20 21 07/23/2021 URINA LYSIS COMPL ETE/I RIS W/RFX color yellow Not Available [facility] (Lab) [address] [place], [address], 07/23/2021 16:46:45 07/23/20 21 07/23/2021 URINA LYSIS COMPL ETE/I RIS W/RFX appear turbid abnormal Not Available [facility] (Lab) [address] [place], [address], 07/23/2021 16:46:45 07/23/20 21 07/23/2021 URINA LYSIS COMPL ETE/I RIS W/RFX specific gravity 1.026 1.001- 1.030 Not Available [facility] (Lab) [address] [place], [address], 07/23/2021 16:46:45 07/23/20 21 07/23/2021 URINA LYSIS COMPL ETE/I RIS W/RFX pH 6.5 pH_un its 5.0-9. 0 Not Available [facility] (Lab) [address] [place], [address], 07/23/2021 16:46:45 07/23/20 21 07/23/2021 URINA LYSIS COMPL ETE/I RIS W/RFX leukocytes 75 jose/u L negati ve- abnormal Not Available [facility] (Lab) [address] [place], [address], 07/23/2021 16:46:45 07/23/20 21 07/23/2021 URINA LYSIS COMPL ETE/I RIS W/RFX nitrite negati ve negati ve- Not Available [facility] (Lab) [address] [place], [address], 07/23/2021 16:46:45 07/23/20 21 07/23/2021 URINA LYSIS COMPL ETE/I RIS W/RFX protein 10 mg/dL negati ve- abnormal Not Available [facility] (Lab) [address] [place], [address], 07/23/2021 16:46:45 07/23/20 21 07/23/2021 URINA LYSIS COMPL ETE/I RIS W/RFX glucose normal mg/dL normal - Not Available [facility] (Lab) [address] [place], [address], 07/23/2021 16:46:45 07/23/20 21 07/23/2021 URINA LYSIS COMPL ETE/I RIS W/RFX ketones negati ve mg/dL negati ve- Not Available [facility] (Lab) [address] [place], [address], 07/23/2021 16:46:45 07/23/20 21 07/23/2021 URINA LYSIS COMPL ETE/I RIS W/RFX urobilinogen normal mg/dL normal - Not Available [facility] (Lab) [address] [place], [address], 07/23/2021 16:46:45 07/23/20 21 07/23/2021 URINA LYSIS COMPL ETE/I RIS W/RFX bilirubin negati ve mg/dL negati ve- Not Available [facility] (Lab) [address] [place], [address], 07/23/2021 16:46:45 07/23/20 21 07/23/2021 URINA LYSIS COMPL ETE/I RIS W/RFX blood negati ve mg/dL negati ve- Not Available [facility] (Lab) [address] [place], [address], 07/23/2021 16:46:45 07/23/20 21 07/23/2021 URINA LYSIS COMPL ETE/I RIS W/RFX white blood cells 0-8 /i??h pfi?? 0-8 Not Available [facility] (Lab) [address] [place], [address], 07/23/2021 16:46:45 07/23/20 21 07/23/2021 URINA LYSIS COMPL ETE/I RIS W/RFX red blood cells 5-10 /i??h pfi?? 0-4 abnormal Not Available [facility] (Lab) [address] [facility] [place] [place], [address], 07/23/2021 16:46:45 07/23/20 21 07/23/2021 URINA LYSIS COMPL ETE/I RIS W/RFX bacteria many abnormal Not Available [facility] (Lab) [address] [place], [address], 07/23/2021 16:46:45 07/23/20 21 07/23/2021 URINA LYSIS COMPL ETE/I RIS W/RFX mucous few /i??l pfi?? abnormal Not Available [facility] (Lab) [address] [place], [address], 07/23/2021 16:46:45 07/23/20 21 07/23/2021 URINA LYSIS COMPL ETE/I RIS W/RFX squamous epithelial packed field /i??l pfi?? abnormal Not Available [facility] (Lab) [address] [place], [address], 07/23/2021 16:46:45 07/23/20 21 07/23/2021 URINA LYSIS COMPL ETE/I RIS W/RFX budding yeast occasi onal /i??h pfi?? abnormal Not Available [facility] (Lab) [address] [place], [address], 07/23/2021 16:46:45 07/23/20 21 07/23/2021 CBC/C OMPLE TE BLD COUNT W/DIF F white blood cells 9.9 x10'3 /uL 4.2-10 .8 Not Available [facility] (Lab) [address] [place], [address], 07/23/2021 16:33:19 07/23/20 21 07/23/2021 CBC/C OMPLE TE BLD COUNT W/DIF F red blood cells 4.65 x10'6 /uL 3.80-5 .20 Not Available [facility] (Lab) [address] [place], [address], 07/23/2021 16:33:19 07/23/20 21 07/23/2021 CBC/C OMPLE TE BLD COUNT W/DIF F hemoglobin 14.4 g/dL 12.0-1 5.6 Not Available [facility] (Lab) [address] [place], [address], 07/23/2021 16:33:19 07/23/20 21 07/23/2021 CBC/C OMPLE TE BLD COUNT W/DIF F hematocrit 42.7 % 35.7-4 5.7 Not Available [facility] (Lab) [address] [place], [address], 07/23/2021 16:33:19 07/23/20 21 07/23/2021 CBC/C OMPLE TE BLD COUNT W/DIF F mean red cell volume 91.8 fL 82.0-9 9.0 Not Available [facility] (Lab) [address] [place], [address], 07/23/2021 16:33:19 07/23/20 21 07/23/2021 CBC/C OMPLE TE BLD COUNT W/DIF F mean red cell hemoglobin 31.0 pg 27.0-3 3.0 Not Available [facility] (Lab) [address] [place], [address], 07/23/2021 16:33:19 07/23/20 21 07/23/2021 CBC/C OMPLE TE BLD COUNT W/DIF F mean RBC HGB concentratio n 33.7 g/dL 31.0-3 6.0 Not Available [facility] (Lab) [address] [place], [address], 07/23/2021 16:33:19 07/23/20 21 07/23/2021 CBC/C OMPLE TE BLD COUNT W/DIF F red cell distribution width 12.4 % 11.8-1 5.5 Not Available [facility] (Lab) [address] [place], [address], 07/23/2021 16:33:19 07/23/20 21 07/23/2021 CBC/C OMPLE TE BLD COUNT W/DIF F platelets 485 x10'3 /uL 150-40 0 high Not Available [facility] (Lab) [address] [place], [address], 07/23/2021 16:33:19 07/23/20 21 07/23/2021 CBC/C OMPLE TE BLD COUNT W/DIF F mean platelet volume 10.8 fL 9.0-12 .4 Not Available [facility] (Lab) [address] [place], [address], 07/23/2021 16:33:19 07/23/20 21 07/23/2021 CBC/C OMPLE TE BLD COUNT W/DIF F neutrophils 51.6 % 39.0-7 2.0 Not Available [facility] (Lab) [address] [place], [address], 07/23/2021 16:33:19 07/23/20 21 07/23/2021 CBC/C OMPLE TE BLD COUNT W/DIF F lymphocytes 36.8 % 16.0-4 7.0 Not Available [facility] (Lab) [address] [place], [address], 07/23/2021 16:33:19 07/23/20 21 07/23/2021 CBC/C OMPLE TE BLD COUNT W/DIF F monocytes 6.3 % 5.0-12 .0 Not Available [facility] (Lab) [address] [place], [address], 07/23/2021 16:33:19 07/23/20 21 07/23/2021 CBC/C OMPLE TE BLD COUNT W/DIF F eosinophils 4.2 % 1.0-7. 0 Not Available [facility] (Lab) [address] [place], [address], 07/23/2021 16:33:19 07/23/20 21 07/23/2021 CBC/C OMPLE TE BLD COUNT W/DIF F basophils 0.8 % 0.0-2. 0 Not Available [facility] (Lab) [address] [place], [address], 07/23/2021 16:33:19 07/23/20 21 07/23/2021 CBC/C OMPLE TE BLD COUNT W/DIF F immature granulocytes 0.3 % 0.00-0 .50 Not Available [facility] (Lab) [address] [place], [address], 07/23/2021 16:33:19 07/23/20 21 07/23/2021 CBC/C OMPLE TE BLD COUNT W/DIF F neutrophils, absolute count 5.11 x10'3 /uL 1.5-8. 0 Not Available [facility] (Lab) [address] [place], [address], 07/23/2021 16:33:19 07/23/20 21 07/23/2021 CBC/C OMPLE TE BLD COUNT W/DIF F lymphocytes, absolute count 3.65 x10'3 /uL 1.07-3 .43 high Not Available [facility] (Lab) [address] [place], [address], 07/23/2021 16:33:19 07/23/20 21 07/23/2021 CBC/C OMPLE TE BLD COUNT W/DIF F monocytes, absolute count 0.62 x10'3 /uL 0.29-0 .99 Not Available [facility] (Lab) [address] [place], [address], 07/23/2021 16:33:19 07/23/20 21 07/23/2021 CBC/C OMPLE TE BLD COUNT W/DIF F eosinophils, absolute count 0.42 x10'3 /uL 0.02-0 .53 Not Available [facility] (Lab) [address] [place], [address], 07/23/2021 16:33:19 07/23/20 21 07/23/2021 CBC/C OMPLE TE BLD COUNT W/DIF F basophils, absolute count 0.08 x10'3 /uL 0.01-0 .08 Not Available [facility] (Lab) [address] [place], [address], 07/23/2021 16:33:19 07/23/20 21 07/23/2021 CBC/C OMPLE TE BLD COUNT W/DIF F immature granulocytes ,absolute 0.03 x10'3 /uL 0.00-0 .05 Not Available [facility] (Lab) [address] [place], [address], 07/23/2021 16:33:19 07/23/20 21 07/23/2021 CBC/C OMPLE TE BLD COUNT W/DIF F nucleated red blood cells 0.0 % -0 Not Available [facility] (Lab) [address] [place], [address], 07/23/2021 16:33:19 07/23/20 21 07/23/2021 CBC/C OMPLE TE BLD COUNT W/DIF F NRBC# 0.00 x10'3 /uL Not Available [facility] (Lab) [address] [place], [address], 07/23/2021 16:33:19 07/18/20 22 07/18/2022 HEMOG LOBIN A1C HA1C 4.6 % 4.0-6. 0 Diabe fatou Scree rhonda Crite kayla: <5.7% Consi stent with absen ce of diabe fatou 5.7-6 .4% Consi stent with incre ased risk for diabe fatou (pred iabet es) >OR=6 .5% Consi stent with diabe fatou REFER ENCE: Diabe fatou Care 2016, 39([place] ppl.1 ):s13 -s22 Not Available [facility] (Lab) [address] [place], [address], 07/18/2022 20:26:20 07/18/20 22 07/18/2022 VITAM IN D 25-HY DROXY vd25oh 26.0 NG/mL 30-100 low Vitam in D Statu s: Defic ient: <20 ng/mL Insuf ficie nt: 20-29 ng/mL Suffi cient : 30-10 0 ng/mL Not Available [facility] (Lab) [address] [place], [address], 07/18/2022 19:16:51 07/18/20 22 07/18/2022 TSH W/REF GT FT4 TSH with reflex free T4 0.876 uIU/m L 0.465- 4.680 Not Available [facility] (Lab) [address] [place], [address], 07/18/2022 19:00:27 07/18/20 22 07/18/2022 URINA LYSIS COMPL ETE/I RIS W/RFX color light- yellow Not Available [facility] (Lab) [address] [place], [address], 07/18/2022 18:42:33 07/18/20 22 07/18/2022 URINA LYSIS COMPL ETE/I RIS W/RFX appear clear Not Available [facility] (Lab) [address] [place], [address], 07/18/2022 18:42:33 07/18/20 22 07/18/2022 URINA LYSIS COMPL ETE/I RIS W/RFX specific gravity 1.028 1.001- 1.030 Not Available [facility] (Lab) [address] [place], [address], 07/18/2022 18:42:33 07/18/20 22 07/18/2022 URINA LYSIS COMPL ETE/I RIS W/RFX pH 6.0 pH_un its 5.0-9. 0 Not Available [facility] (Lab) [address] [place], [address], 07/18/2022 18:42:33 07/18/20 22 07/18/2022 URINA LYSIS COMPL ETE/I RIS W/RFX leukocytes negati ve jose/u L negati ve- Not Available [facility] (Lab) [address] [place], [address], 07/18/2022 18:42:33 07/18/20 22 07/18/2022 URINA LYSIS COMPL ETE/I RIS W/RFX nitrite negati ve negati ve- Not Available [facility] (Lab) [address] [place], [address], 07/18/2022 18:42:33 07/18/20 22 07/18/2022 URINA LYSIS COMPL ETE/I RIS W/RFX protein negati ve mg/dL negati ve- Not Available [facility] (Lab) [address] [place], [address], 07/18/2022 18:42:33 07/18/20 22 07/18/2022 URINA LYSIS COMPL ETE/I RIS W/RFX glucose normal mg/dL normal - Not Available [facility] (Lab) [address] [place], [address], 07/18/2022 18:42:33 07/18/20 22 07/18/2022 URINA LYSIS COMPL ETE/I RIS W/RFX ketones negati ve mg/dL negati ve- Not Available [facility] (Lab) [address] [place], [address], 07/18/2022 18:42:33 07/18/20 22 07/18/2022 URINA LYSIS COMPL ETE/I RIS W/RFX urobilinogen normal mg/dL normal - Not Available [facility] (Lab) [address] [place], [address], 07/18/2022 18:42:33 07/18/20 22 07/18/2022 URINA LYSIS COMPL ETE/I RIS W/RFX bilirubin negati ve mg/dL negati ve- Not Available [facility] (Lab) [address] [place], [address], 07/18/2022 18:42:33 07/18/20 22 07/18/2022 URINA LYSIS COMPL ETE/I RIS W/RFX blood 0.03 mg/dL negati ve- abnormal Not Available [facility] (Lab) [address] [place], [address], 07/18/2022 18:42:33 07/18/20 22 07/18/2022 URINA LYSIS COMPL ETE/I RIS W/RFX white blood cells 0-8 /i??h pfi?? 0-8 Not Available [facility] (Lab) [address] [place], [address], 07/18/2022 18:42:33 07/18/20 22 07/18/2022 URINA LYSIS COMPL ETE/I RIS W/RFX red blood cells 0-4 /i??h pfi?? 0-4 Not Available [facility] (Lab) [address] [place], [address], 07/18/2022 18:42:33 07/18/20 22 07/18/2022 URINA LYSIS COMPL ETE/I RIS W/RFX bacteria none Not Available [facility] (Lab) [address] [place], [address], 07/18/2022 18:42:33 07/18/20 22 07/18/2022 URINA LYSIS COMPL ETE/I RIS W/RFX mucous occasi onal /i??l pfi?? abnormal Not Available [facility] (Lab) [address] [place], [address], 07/18/2022 18:42:33 07/18/20 22 07/18/2022 URINA LYSIS COMPL ETE/I RIS W/RFX squamous epithelial few /i??l pfi?? abnormal Not Available [facility] (Lab) [address] [place], [address], 07/18/2022 18:42:33 07/18/20 22 07/18/2022 LIPID PANEL cholesterol 158 mg/dL 140-19 9 NIH DEBBIE NSUS RECOM MENDA TION FOR ALBA STERO L: ADULT CHILD LOW RISK: <200 <170 BORDE RLINE : <200- 239 ----- HIGH RISK: >240 >200 Not Available [facility] (Lab) [address] [place], [address], 07/18/2022 18:39:28 07/18/20 22 07/18/2022 LIPID PANEL triglyceride s 195 mg/dL 0-150 high NIH DEBBIE NSUS REPOR T RECOM MENDA TION FOR TRIGL YCERI BATOOL: ADULT CHILD LOW RISK: <150 ----- BODER LINE: 150-1 99 ----- HIGH RISK: >200 ----- Not Available [facility] (Lab) [address] [place], [address], 07/18/2022 18:39:28 07/18/20 22 07/18/2022 LIPID PANEL HDL cholesterol 50 mg/dL 40- Not Available [facility] (Lab) [address] [place], [address], 07/18/2022 18:39:28 07/18/20 22 07/18/2022 LIPID PANEL [...] WILL NOT BE REPOR ARMOND. Not Available [facility] (Lab) [address] [place], [address], 07/18/2022 18:39:28 07/18/20 22 07/18/2022 COMPR EHENS LEONIDAS METAB OLIC PANEL sodium 139 mmol/ L 137-14 5 Not Available [facility] (Lab) [address] [place], [address], 07/18/2022 18:39:24 07/18/20 22 07/18/2022 COMPR EHENS LEONIDAS METAB OLIC PANEL potassium 4.1 mmol/ L 3.5-5. 1 Not Available [facility] (Lab) [address] [place], [address], 07/18/2022 18:39:24 07/18/20 22 07/18/2022 COMPR EHENS LEONIDAS METAB OLIC PANEL chloride 104 mmol/ L 98-107 Not Available [facility] (Lab) [address] [place], [address], 07/18/2022 18:39:24 07/18/20 22 07/18/2022 COMPR EHENS LEONIDAS METAB OLIC PANEL carbon dioxide 26 mmol/ L 22-30 Not Available [facility] (Lab) [address] [place], [address], 07/18/2022 18:39:24 07/18/20 22 07/18/2022 COMPR EHENS LEONIDAS METAB OLIC PANEL anion gap 13.1 mmol/ L 14-22 low Not Available [facility] (Lab) [address] [place], [address], 07/18/2022 18:39:24 07/18/20 22 07/18/2022 COMPR EHENS LEONIDAS METAB OLIC PANEL glucose 78 mg/dL 70-99 Not Available [facility] (Lab) [address] [place], [address], 07/18/2022 18:39:24 07/18/20 22 07/18/2022 COMPR EHENS LEONIDAS METAB OLIC PANEL BUN 14 mg/dL 8-19 Not Available [facility] (Lab) [address] [place], [address], 07/18/2022 18:39:24 07/18/20 22 07/18/2022 COMPR EHENS LEONIDAS METAB OLIC PANEL creatinine 0.61 mg/dL 0.66-1 .25 low Not Available [facility] (Lab) [address] [place], [address], 07/18/2022 18:39:24 07/18/20 22 07/18/2022 COMPR EHENS LEONIDAS METAB OLIC PANEL GFR >60 Refer ence Range : Rarden ge GFR Healt hy Adult : >60 [...] calcu lator is avail able on the [facility] websi te: https ://ww w.kid ludy.o rg/pr ofess ional s/kdo qi/gf r_cal culat or Not Available [facility] (Lab) [address] [place], [address], 07/18/2022 18:39:24 07/18/20 22 07/18/2022 COMPR EHENS LEONIDAS METAB OLIC PANEL alkaline phosphatase 53 U/L 38-126 Not Available [facility] (Lab) [address] [place], [address], 07/18/2022 18:39:24 07/18/20 22 07/18/2022 COMPR EHENS LEONIDAS METAB OLIC PANEL alanine aminotransfe rase 21 U/L 0-35 Not Available [facility] (Lab) [address] [place], [address], 07/18/2022 18:39:24 07/18/20 22 07/18/2022 COMPR EHENS LEONIDAS METAB OLIC PANEL aspartate aminotransfe rase 24 U/L 15-37 Not Available [facility] (Lab) [address] [place], [address], 07/18/2022 18:39:24 07/18/20 22 07/18/2022 COMPR EHENS LEONIDAS METAB OLIC PANEL bilirubin, total 0.50 mg/dL 0.20-1 .30 Not Available [facility] (Lab) [address] [place], [address], 07/18/2022 18:39:24 07/18/20 22 07/18/2022 COMPR EHENS LEONIDAS METAB OLIC PANEL calcium 9.7 mg/dL 8.4-10 .2 Not Available [facility] (Lab) [address] [place], [address], 07/18/2022 18:39:24 07/18/20 22 07/18/2022 COMPR EHENS LEONIDAS METAB OLIC PANEL total protein 7.9 g/dL 6.3-8. 2 Not Available [facility] (Lab) [address] [place], [address], 07/18/2022 18:39:24 07/18/20 22 07/18/2022 COMPR EHENS LEONIDAS METAB OLIC PANEL albumin 4.7 g/dL 3.4-5. 0 Not Available [facility] (Lab) [address] [place], [address], 07/18/2022 18:39:24 07/18/20 22 07/18/2022 COMPR EHENS LEONIDAS METAB OLIC PANEL globulin 3.2 g/dL 2.6-4. 2 Not Available [facility] (Lab) [address] [place], [address], 07/18/2022 18:39:24 07/18/20 22 07/18/2022 COMPR EHENS LEONIDAS METAB OLIC PANEL A/G ratio 1.5 ratio 1.0-2. 0 Not Available [facility] (Lab) [address] [place], [address], 07/18/2022 18:39:24 07/18/20 22 07/18/2022 CBC/C OMPLE TE BLD COUNT W/DIF F white blood cells 8.7 x10'3 /uL 4.2-10 .8 Not Available [facility] (Lab) [address] [place], [address], 07/18/2022 18:12:51 07/18/20 22 07/18/2022 CBC/C OMPLE TE BLD COUNT W/DIF F red blood cells 4.52 x10'6 /uL 3.80-5 .20 Not Available [facility] (Lab) [address] [place], [address], 07/18/2022 18:12:51 07/18/20 22 07/18/2022 CBC/C OMPLE TE BLD COUNT W/DIF F hemoglobin 14.0 g/dL 12.0-1 5.6 Not Available [facility] (Lab) [address] [place], [address], 07/18/2022 18:12:51 07/18/20 22 07/18/2022 CBC/C OMPLE TE BLD COUNT W/DIF F hematocrit 42.2 % 35.7-4 5.7 Not Available [facility] (Lab) [address] [place], [address], 07/18/2022 18:12:51 07/18/20 22 07/18/2022 CBC/C OMPLE TE BLD COUNT W/DIF F mean red cell volume 93.4 fL 82.0-9 9.0 Not Available [facility] (Lab) [address] [place], [address], 07/18/2022 18:12:51 07/18/20 22 07/18/2022 CBC/C OMPLE TE BLD COUNT W/DIF F mean red cell hemoglobin 31.0 pg 27.0-3 3.0 Not Available [facility] (Lab) [address] [place], [address], 07/18/2022 18:12:51 07/18/20 22 07/18/2022 CBC/C OMPLE TE BLD COUNT W/DIF F mean RBC HGB concentratio n 33.2 g/dL 31.0-3 6.0 Not Available [facility] (Lab) [address] [facility] [place] [place], [address], 07/18/2022 18:12:51 07/18/20 22 07/18/2022 CBC/C OMPLE TE BLD COUNT W/DIF F red cell distribution width 12.7 % 11.8-1 5.5 Not Available [facility] (Lab) [address] [facility] [place] [place], [address], 07/18/2022 18:12:51 07/18/20 22 07/18/2022 CBC/C OMPLE TE BLD COUNT W/DIF F platelets 445 x10'3 /uL 150-40 0 high Not Available [facility] (Lab) [address] [place], [address], 07/18/2022 18:12:51 07/18/20 22 07/18/2022 CBC/C OMPLE TE BLD COUNT W/DIF F mean platelet volume 11.0 fL 9.0-12 .4 Not Available [facility] (Lab) [address] [place], [address], 07/18/2022 18:12:51 07/18/20 22 07/18/2022 CBC/C OMPLE TE BLD COUNT W/DIF F neutrophils 53.7 % 39.0-7 2.0 Not Available [facility] (Lab) [address] [place], [address], 07/18/2022 18:12:51 07/18/20 22 07/18/2022 CBC/C OMPLE TE BLD COUNT W/DIF F lymphocytes 34.6 % 16.0-4 7.0 Not Available [facility] (Lab) [address] [place], [address], 07/18/2022 18:12:51 07/18/20 22 07/18/2022 CBC/C OMPLE TE BLD COUNT W/DIF F monocytes 5.9 % 5.0-12 .0 Not Available [facility] (Lab) [address] [place], [address], 07/18/2022 18:12:51 07/18/20 22 07/18/2022 CBC/C OMPLE TE BLD COUNT W/DIF F eosinophils 4.8 % 1.0-7. 0 Not Available [facility] (Lab) [address] [place], [address], 07/18/2022 18:12:51 07/18/20 22 07/18/2022 CBC/C OMPLE TE BLD COUNT W/DIF F basophils 0.7 % 0.0-2. 0 Not Available [facility] (Lab) [address] [place], [address], 07/18/2022 18:12:51 07/18/20 22 07/18/2022 CBC/C OMPLE TE BLD COUNT W/DIF F immature granulocytes 0.3 % 0.00-0 .50 Not Available [facility] (Lab) [address] [place], [address], 07/18/2022 18:12:51 07/18/20 22 07/18/2022 CBC/C OMPLE TE BLD COUNT W/DIF F neutrophils, absolute count 4.65 x10'3 /uL 1.5-8. 0 Not Available [facility] (Lab) [address] [place], [address], 07/18/2022 18:12:51 07/18/20 22 07/18/2022 CBC/C OMPLE TE BLD COUNT W/DIF F lymphocytes, absolute count 3.00 x10'3 /uL 1.07-3 .43 Not Available [facility] (Lab) [address] [place], [address], 07/18/2022 18:12:51 07/18/20 22 07/18/2022 CBC/C OMPLE TE BLD COUNT W/DIF F monocytes, absolute count 0.51 x10'3 /uL 0.29-0 .99 Not Available [facility] (Lab) [address] [place], [address], 07/18/2022 18:12:51 07/18/20 22 07/18/2022 CBC/C OMPLE TE BLD COUNT W/DIF F eosinophils, absolute count 0.42 x10'3 /uL 0.02-0 .53 Not Available [facility] (Lab) [address] [place], [address], 07/18/2022 18:12:51 07/18/20 22 07/18/2022 CBC/C OMPLE TE BLD COUNT W/DIF F basophils, absolute count 0.06 x10'3 /uL 0.01-0 .08 Not Available [facility] (Lab) [address] [place], [address], 07/18/2022 18:12:51 07/18/20 22 07/18/2022 CBC/C OMPLE TE BLD COUNT W/DIF F immature granulocytes ,absolute 0.03 x10'3 /uL 0.00-0 .05 Not Available [facility] (Lab) [address] [place], [address], 07/18/2022 18:12:51 07/18/20 22 07/18/2022 CBC/C OMPLE TE BLD COUNT W/DIF F nucleated red blood cells 0.0 % -0 Not Available [facility] (Lab) [address] [place], [address], 07/18/2022 18:12:51 07/18/20 22 07/18/2022 CBC/C OMPLE TE BLD COUNT W/DIF F NRBC# 0.00 x10'3 /uL Not Available [facility] (Lab) [address] [place], [address], 07/18/2022 18:12:51 07/24/20 23 07/24/2023 COMPR EHENS LEONIDAS METAB OLIC PANEL sodium 141 mmol/ L 137-14 5 Not Available [facility] (Lab) [address] [place], [address], 07/24/2023 18:26:21 07/24/20 23 07/24/2023 COMPR EHENS LEONIDAS METAB OLIC PANEL potassium 4.1 mmol/ L 3.5-5. 1 Not Available [facility] (Lab) [address] [place], [address], 07/24/2023 18:26:21 07/24/20 23 07/24/2023 COMPR EHENS LEONIDAS METAB OLIC PANEL chloride 105 mmol/ L 98-107 Not Available [facility] (Lab) [address] [place], [address], 07/24/2023 18:26:21 07/24/20 23 07/24/2023 COMPR EHENS LEONIDAS METAB OLIC PANEL carbon dioxide 24 mmol/ L 22-30 Not Available [facility] (Lab) [address] [place], [address], 07/24/2023 18:26:21 07/24/20 23 07/24/2023 COMPR EHENS LEONIDAS METAB OLIC PANEL anion gap 16.1 mmol/ L 14-22 Not Available [facility] (Lab) [address] [place], [address], 07/24/2023 18:26:21 07/24/20 23 07/24/2023 COMPR EHENS LEONIDAS METAB OLIC PANEL glucose 92 mg/dL 70-99 Not Available [facility] (Lab) [address] [place], [address], 07/24/2023 18:26:21 07/24/20 23 07/24/2023 COMPR EHENS LEONIDAS METAB OLIC PANEL BUN 8 mg/dL 8-19 Not Available [facility] (Lab) [address] [place], [address], 07/24/2023 18:26:21 07/24/20 23 07/24/2023 COMPR EHENS LEONIDAS METAB OLIC PANEL creatinine 0.54 mg/dL 0.66-1 .25 low Not Available [facility] (Lab) [address] [place], [address], 07/24/2023 18:26:21 07/24/20 23 07/24/2023 COMPR EHENS LEONIDAS METAB OLIC PANEL GFR >60 Refer ence Range : Rarden ge GFR Healt hy Adult : >60 [...] or ethni c subgr oups, such as Histx nics. Outsi de the valid ated yojana [...] calcu lator is avail able on the F websi te: https :[email or web address] [email or web address] boston.o rg/pr ofess ional s/kdo qi/gf r_cal culat or Not Available [facility] (Lab) [address] [place], [address], 07/24/2023 18:26:21 07/24/20 23 07/24/2023 COMPR EHENS LEONIDAS METAB OLIC PANEL alkaline phosphatase 50 U/L 38-126 Not Available [facility] (Lab) [address] [place], [address], 07/24/2023 18:26:21 07/24/20 23 07/24/2023 COMPR EHENS LEONIDAS METAB OLIC PANEL alanine aminotransfe rase 19 U/L 0-35 Not Available [facility] (Lab) [address] [place], [address], 07/24/2023 18:26:21 07/24/20 23 07/24/2023 COMPR EHENS LEONIDAS METAB OLIC PANEL aspartate aminotransfe rase 22 U/L 15-37 Not Available [facility] (Lab) [address] [place], [address], 07/24/2023 18:26:21 07/24/20 23 07/24/2023 COMPR EHENS LEONIDAS METAB OLIC PANEL bilirubin, total 0.30 mg/dL 0.20-1 .30 Not Available [facility] (Lab) [address] [place], [address], 07/24/2023 18:26:21 07/24/20 23 07/24/2023 COMPR EHENS LEONIDAS METAB OLIC PANEL calcium 10.0 mg/dL 8.4-10 .2 Not Available [facility] (Lab) [address] [place], [address], 07/24/2023 18:26:21 07/24/20 23 07/24/2023 COMPR EHENS LEONIDAS METAB OLIC PANEL total protein 7.9 g/dL 6.3-8. 2 Not Available [facility] (Lab) [address] [place], [address], 07/24/2023 18:26:21 07/24/20 23 07/24/2023 COMPR EHENS LEONIDAS METAB OLIC PANEL albumin 4.5 g/dL 3.4-5. 0 Not Available [facility] (Lab) [address] [place], [address], 07/24/2023 18:26:21 07/24/20 23 07/24/2023 COMPR EHENS LEONIDAS METAB OLIC PANEL globulin 3.4 g/dL 2.6-4. 2 Not Available [facility] (Lab) [address] [place], [address], 07/24/2023 18:26:21 07/24/20 23 07/24/2023 COMPR EHENS LEONIDAS METAB OLIC PANEL A/G ratio 1.3 ratio 1.0-2. 0 Not Available [facility] (Lab) [address] [place], [address], 07/24/2023 18:26:21 07/24/20 23 07/24/2023 LIPID PANEL cholesterol 171 mg/dL 140-19 9 NIH DEBBIE NSUS RECOM MENDA TION FOR ALBA STERO L: ADULT CHILD LOW RISK: <200 <170 BORDE RLINE : <200- 239 ----- HIGH RISK: >240 >200 Not Available [facility] (Lab) [address] [place], [address], 07/24/2023 18:26:24 07/24/20 23 07/24/2023 LIPID PANEL triglyceride s 206 mg/dL 0-150 high NIH DEBBIE NSUS REPOR T RECOM MENDA TION FOR TRIGL YCERI BATOOL: ADULT CHILD LOW RISK: <150 ----- BODER LINE: 150-1 99 ----- HIGH RISK: >200 ----- Not Available [facility] (Lab) [address] [place], [address], 07/24/2023 18:26:24 07/24/20 23 07/24/2023 LIPID PANEL HDL cholesterol 48 mg/dL 40- Not Available [facility] (Lab) [address] [place], [address], 07/24/2023 18:26:24 07/24/2007/24/2023 LIPID PANEL LDL cholesterol, calculated 82 mg/dL [...] REPOR ARMOND. Not Available [facility] (Lab) [address] [place], [address], 07/24/2023 18:26:24 07/24/2007/24/2023 CBC/C OMPLE TE BLD COUNT W/DIF F white blood cells 9.4 x10'3 /uL 4.2-10 .8 Not Available [facility] (Lab) [address] [place], [address], 07/24/2023 18:28:06 07/24/20 23 07/24/2023 CBC/C OMPLE TE BLD COUNT W/DIF F red blood cells 4.43 x10'6 /uL 3.80-5 .20 Not Available [facility] (Lab) [address] [place], [address], 07/24/2023 18:28:06 07/24/2007/24/2023 CBC/C OMPLE TE BLD COUNT W/DIF F hemoglobin 14.2 g/dL 12.0-1 5.6 Not Available [facility] (Lab) [address] [place], [address], 07/24/2023 18:28:06 07/24/20 23 07/24/2023 CBC/C OMPLE TE BLD COUNT W/DIF F hematocrit 41.9 % 35.7-4 5.7 Not Available [facility] (Lab) [address] [place], [address], 07/24/2023 18:28:06 07/24/20 23 07/24/2023 CBC/C OMPLE TE BLD COUNT W/DIF F mean red cell volume 94.6 fL 82.0-9 9.0 Not Available [facility] (Lab) [address] [place], [address], 07/24/2023 18:28:06 07/24/20 23 07/24/2023 CBC/C OMPLE TE BLD COUNT W/DIF F mean red cell hemoglobin 32.1 pg 27.0-3 3.0 Not Available [facility] (Lab) [address] [place], [address], 07/24/2023 18:28:06 07/24/20 23 07/24/2023 CBC/C OMPLE TE BLD COUNT W/DIF F mean RBC HGB concentratio n 33.9 g/dL 31.0-3 6.0 Not Available [facility] (Lab) [address] [place], [address], 07/24/2023 18:28:06 07/24/20 23 07/24/2023 CBC/C OMPLE TE BLD COUNT W/DIF F red cell distribution width 12.3 % 11.8-1 5.5 Not Available [facility] (Lab) [address] [place], [address], 07/24/2023 18:28:06 07/24/20 23 07/24/2023 CBC/C OMPLE TE BLD COUNT W/DIF F platelets 380 x10'3 /uL 150-40 0 Not Available [facility] (Lab) [address] [place], [address], 07/24/2023 18:28:06 07/24/20 23 07/24/2023 CBC/C OMPLE TE BLD COUNT W/DIF F mean platelet volume 11.9 fL 9.0-12 .4 Not Available [facility] (Lab) [address] [place], [address], 07/24/2023 18:28:06 07/24/20 23 07/24/2023 CBC/C OMPLE TE BLD COUNT W/DIF F neutrophils 57.5 % 39.0-7 2.0 Not Available [facility] (Lab) [address] [place], [address], 07/24/2023 18:28:06 07/24/20 23 07/24/2023 CBC/C OMPLE TE BLD COUNT W/DIF F lymphocytes 33.3 % 16.0-4 7.0 Not Available [facility] (Lab) [address] [place], [address], 07/24/2023 18:28:06 07/24/20 23 07/24/2023 CBC/C OMPLE TE BLD COUNT W/DIF F monocytes 4.8 % 5.0-12 .0 low Not Available [facility] (Lab) [address] [place], [address], 07/24/2023 18:28:06 07/24/20 23 07/24/2023 CBC/C OMPLE TE BLD COUNT W/DIF F eosinophils 3.0 % 1.0-7. 0 Not Available [facility] (Lab) [address] [place], [address], 07/24/2023 18:28:06 07/24/20 23 07/24/2023 CBC/C OMPLE TE BLD COUNT W/DIF F basophils 1.0 % 0.0-2. 0 Not Available [facility] (Lab) [address] [place], [address], 07/24/2023 18:28:06 07/24/20 23 07/24/2023 CBC/C OMPLE TE BLD COUNT W/DIF F immature granulocytes 0.4 % 0.00-0 .50 Not Available [facility] (Lab) [address] [place], [address], 07/24/2023 18:28:06 07/24/20 23 07/24/2023 CBC/C OMPLE TE BLD COUNT W/DIF F neutrophils, absolute count 5.38 x10'3 /uL 1.5-8. 0 Not Available [facility] (Lab) [address] [place], [address], 07/24/2023 18:28:06 07/24/20 23 07/24/2023 CBC/C OMPLE TE BLD COUNT W/DIF F lymphocytes, absolute count 3.11 x10'3 /uL 1.07-3 .43 Not Available [facility] (Lab) [address] [place], [address], 07/24/2023 18:28:06 07/24/20 23 07/24/2023 CBC/C OMPLE TE BLD COUNT W/DIF F monocytes, absolute count 0.45 x10'3 /uL 0.29-0 .99 Not Available [facility] (Lab) [address] [place], [address], 07/24/2023 18:28:06 07/24/20 23 07/24/2023 CBC/C OMPLE TE BLD COUNT W/DIF F eosinophils, absolute count 0.28 x10'3 /uL 0.02-0 .53 Not Available [facility] (Lab) [address] [place], [address], 07/24/2023 18:28:06 07/24/20 23 07/24/2023 CBC/C OMPLE TE BLD COUNT W/DIF F basophils, absolute count 0.09 x10'3 /uL 0.01-0 .08 high Not Available [facility] (Lab) [address] [place], [address], 07/24/2023 18:28:06 07/24/20 23 07/24/2023 CBC/C OMPLE TE BLD COUNT W/DIF F immature granulocytes ,absolute 0.04 x10'3 /uL 0.00-0 .05 Not Available [facility] (Lab) [address] [place], [address], 07/24/2023 18:28:06 07/24/20 23 07/24/2023 CBC/C OMPLE TE BLD COUNT W/DIF F nucleated red blood cells 0.0 % -0 Not Available [facility] (Lab) [address] [place], [address], 07/24/2023 18:28:06 07/24/20 23 07/24/2023 CBC/C OMPLE TE BLD COUNT W/DIF F NRBC# 0.00 x10'3 /uL Not Available [facility] (Lab) [address] [place], [address], 07/24/2023 18:28:06 07/24/20 23 07/24/2023 VITAM IN D 25-HY DROXY vd25oh 41.4 NG/mL 30-100 Vitam in D Statu s: Defic ient: <20 ng/mL Insuf ficie nt: 20-29 ng/mL Suffi cient : 30-10 0 ng/mL Not Available [facility] (Lab) [address] [place], [address], 07/24/2023 18:34:10 07/24/2007/24/2023 T4 FREE free T4 1.13 NG/dL 0.78-2 .19 Not Available [facility] (Lab) [address] [place], [address], 07/24/2023 18:35:06 07/24/20 23 07/24/2023 TSH thyroid-stim ulating hormone 1.040 uIU/m L 0.465- 4.680 Not Available [facility] (Lab) [address] [place], [address], 07/24/2023 18:49:35 07/24/20 23 07/24/2023 VITAM IN B12 (CHAZ BIJAN ) vb12 547 pg/mL 239-93 1 Not Available [facility] (Lab) [address] [place], [address], 07/24/2023 19:23:24 07/24/20 23 07/24/2023 FOLAT E, SERUM /PLAS MA folate 15.6 NG/mL 2.76-2 0.0 Not Available [facility] (Lab) [address] [place], [address], 07/24/2023 19:23:25 07/24/20 23 07/24/2023 HEMOG LOBIN A1C HA1C 4.5 % 4.0-6. 0 Diabe fatou Scree rhonda Crite kayla: <5.7% Consi stent with absen ce of diabe fatou 5.7-6 .4% Consi stent with incre ased risk for diabe fatou (pred iabet es) >OR=6 .5% Consi stent with diabe fatou REFER ENCE: Diabe fatou Care 2016, 39(Boyer ppl.1 ):s13 -s22 Not Available [facility] (Lab) [address] [place], [address], 07/24/2023 21:15:55 Result Notes None recorded. Problems Name Problem SNOMED Code Status Onset Date Resolution Date Notes Provider Name and Address Organization Details Recorded Time Otalgia 69220328 Active 2021 Not Available [facility] 3 06:52:24 Low back pain 336566522 Active Erinn Dial APRN [address] [facility], [place] [address], [place], [address] , Jenn Rykert 4 14:16:03 Vitamin D deficiency 30841698 Active 2021 Erinn Dial APRN [address] [facility], [facility] [address], [place], [address] , Jenn Rykert 4 14:16:11 Thrombocytosi s 6255648 Active 2021 Not Available [facility] 3 06:52:24 Psoriasis 1049396 Active 2022 Erinn Dial, EBENEZER [address], [place], [address] , Birdi [facility] 4 14:16:06 Chronic otitis externa 29045986 Active 2022 Not Available [facility] 3 06:52:24 Fatigue 08186330 Active 2022 Erinn Yojana, [employer] [address], [place], [address] , Jenn Rykert 4 14:20:30 Insomnia 843563000 Active 2022 Erinn Yojana, [employer]NA[employer] [address], [place], [address] , Jenn Rykert 4 14:16:01 Problem Notes None recorded. Procedures Surgical History Date Name Laterality Status Provider Name and Address Organization Details Recorded Time tonsilectomy /adenoids completed Not Available [facility] 11/02/2022 16:54:04 Leon Teeth completed Not Available [facility] 11/02/2022 16:54:04 Imaging Results None recorded. Procedure Notes None recorded. Medical Equipment None Reported. Allergies Allergen ID Allergen Name Allergen Category Reaction Reaction Severity Criticality Documentation Date Start Date Code Code System Note Provider Name and Address Organization Details Recorded Time 66106 Product containin g penicilli n (product) medicatio n hives Not available Not available 11/02/2022 92126 8001 SNOMED Not Available [facility] 3 16:55:10 84403 morphine medicatio n hives Not available Not available 11/02/2022 7052 RxNorm Not Available [facility] 3 16:55:10 74169 Augmentin medicatio n hives Not available Not available 11/02/2022 93007 2 RxNorm Not Available [facility] 3 16:55:11 Medications Name Sig Start Date [...] Not Avai lable Vitals Date Recorded Body height Provider Name an d Address Organization Details Last Updated DateTime 03/30/2022 167.64 cm Not Available [facility] 3 16:54:09 Date Recorded Body mass index (BMI) Body height Oxygen saturation Oxygen saturation in Arterial blood by Pulse oximetry Heart rate Body temperature Body weight Systolic blood pressure Diastolic blood pressure Provider Name and Address Organization Details Last Updated DateTime 2 21.8 kg/m2 167.64 cm 100 % 100 % 92 /min 97.7 [degF] 67412.9 7 g 116 mm[Hg] 74 mm[Hg] Not Available [facility] 3 16:54:09 Date Recorded Body height Body mass index (BMI) Body weight Body temperature Heart rate Oxygen saturation Oxygen saturation in Arterial blood by Pulse oximetry Systolic blood pressure Diastolic blood pressure Provider Name and Address Organization Details Last Updated DateTime 3 167.64 cm 23.2 kg/m2 41156.3 g 97.4 [degF] 98 /min 99 % 99 % 126 mm[Hg] 74 mm[Hg] Luz Maria Joaquin MA [facility] [employer] 3 15:21:40 Date Recorded Body mass index (BMI) Body height Oxygen saturation Oxygen saturation in Arterial blood by Pulse oximetry Heart rate Body temperature Body weight Systolic blood pressure Diastolic blood pressure Provider Name and Address Organization Details Last Updated DateTime 1 22.9 kg/m2 167.64 cm 98 % 98 % 85 /min 97.9 [degF] 42112.1 2 g 118 mm[Hg] 76 mm[Hg] Not Available [facility] 3 16:54:09 Date Recorded Body height Body mass index (BMI) Body weight Body temperature Heart rate Systolic blood pressure Diastolic blood pressure Provider Name and Address Organization Details Last Updated DateTime 4 167.64 cm 24.5 kg/m2 06991.0 4 g 97.4 [degF] 84 /min 120 mm[Hg] 76 mm[Hg] BOY Olivarez [place] [employer] [facility] [employer] 4 10:14:51 Social History Question Answer Notes LastModified by Organization Details LastModified Time Tobacco Smoking Status Former Smoker quit 2019 BOY Olivarez [employer] [facility] [employer] 08/05/2024 10:12:35 Do You Have An Advance Directive? No [id number] Information not available 11/02/2022 What Is Your Level Of Caffeine Consumption? Heavy [id number] Information not available 11/02/2022 How Much Tobacco Do You Chew? None [id number] Information not available 11/02/2022 In The 14 Days Before Symptom Onset, Have You Had Close Contact With A Laboratory-confi rmed COVID-19 While That Case Was Ill? No [id number] Information not available 11/02/2022 In The 14 Days Before Symptom Onset, Have You Had Close Contact With A Person Who Is Under Investigation For COVID-19 While That Person Was Ill? No [id number] Information not available 11/02/2022 What Type Of Diet Are You Following? REGULAR [id number] Information not available 11/02/2022 Which Illicit Or Recreational Drugs Have You Used? None [id number] Information not available 11/02/2022 What Is The Highest Grade Or Level Of School You Have Completed Or The Highest Degree You Have Received? [id number] [id number] Information not available 11/02/2022 Have There Been Any Changes To Your Family Or Social Situation? No [id number] Information not available 11/02/2022 What Is The Fluoride Status Of Your Home? Unknown [id number] Information not available 11/02/2022 When Did You Quit Smoking? [id number] valeri Information not available 08/05/2024 Are There Any Guns Present In Your Home? Yes [id number] Information not available 11/02/2022 Where Do You Live? [place] MIGRATION.030 [id number] Information not available 11/02/2022 Do You Have A Medical Power Of Hosiery Repairer? No MIGRATION.030 [id number] Information not available 11/02/2022 What Was The Date Of Your Most Recent Tobacco Screening? 08/05/2024 Information not available 08/05/2024 Do You Have Any Pets? Yes MIGRATION.030 [id number] Information not available 11/02/2022 What Is Your Relationship Status? Information not available 08/05/2024 Do You Use Your Seat Belt Or Car Seat Routinely? Yes MIGRATION.[id number] [id number] Information not available 11/02/2022 Do You Have Smoke And Carbon Monoxide Detectors In Your Home? Yes MIGRATION.030 [id number] Information not available 11/02/2022 Are You Passively Exposed To Smoke? No MIGRATION.0301 [id number] Information not available 11/02/2022 Are There Any Smokers In Your House? No MIGRATION.0301 [id number] Information not available 11/02/2022 Do You Use Sunscreen Routinely? Yes MIGRATION.0301 [id number] Information not available 11/02/2022 How Many Years Have You Smoked Tobacco? 10 MIGRATION.0301 [id number] Information not available 11/02/2022 Have You Recently Traveled Abroad? No MIGRATION.0301 [id number] Information not available 11/02/2022 Do You Have Any Dietary Restrictions? No MIGRATION.0301 [id number] Information not available 11/02/2022 Sex: Unknown Functional Status Question Answer Note LastModified by Organizat ion Details LastModified Time Do you use any illicit or recreational drugs? No [id number] Information not available 11/02/2022 Do you or have you ever used any other forms of tobacco or nicotine? No [id number] Information not available 11/02/2022 What is your level of alcohol consumption? Occasional [id number] Information not available 11/02/2022 Do you or have you ever used smokeless tobacco? Never used smokeless tobacco MIGRATION.[id number] 7485 Information not available 11/02/2022 Are you currently employed? Yes Information not available 08/05/2024 What is your occupation? [employer] [id number] Information not available 11/02/2022 Do you or have you ever used e-cigarettes or vape? Former user of electronic cigarettes Information not available 08/05/2024 What is your exercise level? Occasional [id number] Information not available 11/02/2022 Mental Status Question Answer Note LastModified by Organizat ion Details LastModified Time Do you feel stressed (tense, restless, nervous, or anxious, or unable to sleep at night)? [id number] Information not available 11/02/2022 Family History Relationship Description Onset Age of this Age Resolved Age Notes LastModified by Organization Details LastModified Time Father Hypertensive disorder MIGRATION.119 [id number] Not available 11/02/2022 16:54:04 Mother History of thyroid disorder MIGRATION.112 [id number] Not available 11/02/2022 16:54:04 Medical History Condition [...] HAVE YOU BEEN HOSPITALIZED OR SEEN IN [facility] IN THE PAST YEAR ? N [...] SNOMED-CT Code Diagnosis ICD10 Code Diagnosis Note [id number] Lina murray MD [facility] Internal Med [place] 15 [address]43 [facility] [address] [address] 01/22/2021 00:00:00 01/22/2021 20:15:26 [id number] Domingo Machuca MD [facility] Internal Med [facility] 15 [facility]43 [facility] [address] [address] 04/12/2021 00:00:00 04/12/2021 21:06:46 [id number] Lina murray MD [facility] Internal Med Cj jolene [address] [place] [address] [address] [facility] [place] [address] 07/26/2021 00:00:00 07/26/2021 20:04:49 [id number] Lina murray MD [facility] Internal Med [address] [address] [place] [address] [place] [address] 03/30/2022 00:00:00 03/30/2022 13:10:57 [id number] Lina murray MD [facility] Internal Med [facility] 2043 [facility] [address] [address] 07/18/2022 00:00:00 07/18/2022 14:29:27 [id number] Lina murray MD [facility] Internal Med [facility] 2043 [facility] [address] [address] 07/24/2023 15:08:46 07/24/2023 15:41:28 Adult health examination 807045405 Z00.01 Psoriasis 9184650 L40.9 Get appointmen t with Derm per her request-Dr Lulú Lovell Chronic ot itis externa [id number] H60.60 Get appointmen t with ENT per her request-Dr Lulú Dykes Vitamin D deficiency [id number] E55.9 Has not been taking her supplement Check labs Fatigue 11313797 R53.83 Check labs Insomnia [id number] G47.0 0 Wants to avoid sleeping pills if possible so she is able to wake for her toddler if she needs her Will have her try some OTC melatonin Call office if this does not improve with the melatonin Hyperlipid emia screening [id number] Z13.220 Diabetes m ellitus screening [id number] Z13.1 Depression screening 171 685098 Z13.31 Body mass index 20-24 - normal 814712365 Z68.23 recommend healthy, well balanced mealsfocus on lean meats, fresh vegetables , fresh fruits, whole grainsredu ce fast/proce ssed foods or eating out to no more than 1-2 times per weekaim to get 30 min of exercise most days of the week- walking is a great choicealso recommend resistance training 2-3 times per week [id number] Lina murray MD [facility] Internal Med [place] 15 2043 [facility] [address] [place] [address] 08/05/2024 10:02:08 08/05/2024 10:45:26 Vitamin D deficiency 51520787 E55.9 Diabetes m ellitus screening 897049781 Z13.1 Hyperlipid emia screening 222891052 Z13.220 Screening for disorder 086134020 Z13.9 Thyroid di sorder screening 848458978 Z13.29 Hepatitis C screening 41 2065219 Z11.59 Health Concerns Section Related Observation LastModified by Organization Detai ls LastModified Time None Recorded Concern Status LastModified by Organization Details LastModified Time None Recorded Advance Directives Directive N: Payers Encounter Date Sequence Insurance Name Policy Number Policy Garza Covered Member ID Garza Member ID Guarantor Name 07/24/2023 1 [place] (O) [employer] Mary E Tinnon [id number] Mary E Tinnon 08/05/2024 1 [employer] [id number] Amry E Tinnon [id number] Mary E Tinnon Notes Date Note Type Note Provider Name and Address Organization Details Recorded Time 07/24/2023 text/html Mary presents today for annual wellness exam. She reports she did get her labs done last time and she needs new orders. 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 She has new insurance now so she [...] or mood. She declines flu vaccine today. BINA Griffin-Waylon [address] [facility], [facility] [address], [place], [address], Jenn Rykert 07/24/2023 16:18:31 08/05/2024 text/html Mary presents today to establish care as her previous provider has left the area. She denies any illnesses or injuries since visit to previous provider. She states that her insomnia has improved since she moved her toddler out of her bed. Erinn Dail APRN [address] [facility], [facility] [address], [place], [address], [employer] 08/05/2024 10:45:35 OBGyn Episode No OBEpisode recorded.
[2025-02-03 12:49] LABS: Hematocrit 40.6 % (37.0-47.0); Hemoglobin 13.6 g/dL (12.0-15.0); Mean Corpuscular HGB Conc 33.5 g/dl (32-36); Mean Corpuscular Hemoglobin 32.1 pg (26-34); Mean Corpuscular Volume 95.8 fl (80-100); Mean Platelet Volume 10.3 fl (7.4-10.4); Platelet Count Result 322 k/mm3 (150-375); Red Blood Count 4.24 M/mm3 (4.2-5.4); Red Cell Distribution Width 13.2 % (11.5-14.5); White Blood Count 15.6 K/mm3 (4.5-10.0)
[2025-02-03 13:15] LABS: Glucose 1 Hour PP 50gm Dose 126 mg/dL
[2025-02-03 13:27] LABS: Syphilis IgG/IgM Antibody Negative (Negative)
[2025-02-03 13:54] LABS: HIV 1/2 Ab P24 Ag Result Negative (Negative)
== END 2025-02-03 11:24 | disposition home or self-care (01) ==
LOC: ANHLAB 11:25
PROVIDERS: Visit Provider Obstetrics & Gynecology
DX: Z34.90 Encounter for supervision of normal pregnancy, unspecified, unspecified trimester (principal); Z3A.00 Weeks of gestation of pregnancy not specified
CPT/HCPCS: 36415; 82947; 85027; 86593; 86703; G0432

== ENCOUNTER 2025-03-31 14:54 | Outpatient (CLI) | payer OTHER, SELFPAY ==
[2025-03-31 15:21] LABS: Hematocrit 38.6 % (37.0-47.0); Hemoglobin 12.9 g/dL (12.0-15.0); Immature Granulocyte Percent A 4.8 % (0-0.5); Lymphocytes Absolute Auto 2.52 K/mm3 (0.9-3.2); Mean Corpuscular HGB Conc 33.4 g/dl (32-36); Mean Corpuscular Hemoglobin 31.1 pg (26-34); Mean Corpuscular Volume 93.0 fl (80-100); Nucleated Red Blood Cells Absolute Auto 0.000 K/mm3 (0.0-0.012); Nucleated Red Blood Cells Perc 0.0 % (0.0-0.2); Platelet Count Result 327 k/mm3 (150-375); Red Blood Count 4.15 M/mm3 (4.2-5.4); White Blood Count 16.9 K/mm3 (4.5-10.0)
[2025-03-31 15:31] LABS: Total Protein Urine Random 23 mg/dL
[2025-03-31 15:36] LABS: Add Urine Microscopic? YES; Appearance Urine Clear (Clear); Glucose Urine UA Negative (Negative); Leukocyte Esterase Ur 1+ LEU/UL (Negative); Need Manual Microscopic Reviewed; Nitrate Urine Negative (Negative); Non Pathogenic Casts 0-2; Specific Grav Ur 1.010 (1.001-1.035)
[2025-03-31 15:42] LABS: Alanine Aminotransferase 14 U/L (6-35); Albumin Level 3.5 g/dL (3.5-5.1); Alkaline Phosphatase 123 U/L (38-126); Anion Gap 7 mmol/L (4-12); Aspartate Amino Transferase 23 U/L (14-36); Bilirubin,Total 0.3 mg/dL (0.2-1.3); Blood Urea Nitrogen 5 mg/dL (7-17); Calcium 9.1 mg/dL (8.4-10.2); Carbon Dioxide 19 mmol/L (22-30); Chloride 106 mmol/L (98-107); Estimated Glomerular Filt Rate > 60; Glucose 115 mg/dL (65-110); Potassium 3.4 mmol/L (3.4-5.0); Sodium 132 mmol/L (137-145); Total Protein 6.9 g/dL (6.3-8.2); Uric Acid 4.3 mg/dL (2.5-7.5)
== END 2025-03-31 14:55 | disposition home or self-care (01) ==
LOC: ANHLAB 14:56
PROVIDERS: Visit Provider Obstetrics & Gynecology
DX: O16.3 Unspecified maternal hypertension, third trimester (principal); Z3A.00 Weeks of gestation of pregnancy not specified
CPT/HCPCS: 36415; 80053; 81001; 81050; 82570; 84156; 84550; 85025; 87086

== ENCOUNTER 2025-04-02 17:00 | Outpatient (CLI) | payer OTHER, SELFPAY ==
[2025-04-02] VITALS (7 sets, daily range): BP systolic 122–137; BP diastolic 73–95; PULSE 86–104
[2025-04-02 17:37] LABS: Hematocrit 39.4 % (37.0-47.0); Hemoglobin 13.6 g/dL (12.0-15.0); Immature Granulocyte Percent A 3.9 % (0-0.5); Lymphocytes Absolute Auto 2.75 K/mm3 (0.9-3.2); Mean Corpuscular HGB Conc 34.5 g/dl (32-36); Mean Corpuscular Hemoglobin 31.8 pg (26-34); Mean Corpuscular Volume 92.1 fl (80-100); Nucleated Red Blood Cells Absolute Auto 0.000 K/mm3 (0.0-0.012); Nucleated Red Blood Cells Perc 0.0 % (0.0-0.2); Platelet Count Result 372 k/mm3 (150-375); Red Blood Count 4.28 M/mm3 (4.2-5.4); White Blood Count 17.6 K/mm3 (4.5-10.0)
[2025-04-02 17:48] LABS: Alanine Aminotransferase 17 U/L (6-35); Albumin Level 3.8 g/dL (3.5-5.1); Alkaline Phosphatase 125 U/L (38-126); Anion Gap 11 mmol/L (4-12); Aspartate Amino Transferase 30 U/L (14-36); Bilirubin,Total 0.2 mg/dL (0.2-1.3); Blood Urea Nitrogen 9 mg/dL (7-17); Calcium 10.1 mg/dL (8.4-10.2); Carbon Dioxide 18 mmol/L (22-30); Chloride 106 mmol/L (98-107); Estimated Glomerular Filt Rate > 60; Glucose 121 mg/dL (65-110); Potassium 3.7 mmol/L (3.4-5.0); Sodium 135 mmol/L (137-145); Total Protein 7.2 g/dL (6.3-8.2); Uric Acid 5.0 mg/dL (2.5-7.5)
[2025-04-02 17:51] LABS: Add Urine Microscopic? YES; Appearance Urine Clear (Clear); Glucose Urine UA Negative (Negative); Leukocyte Esterase Ur Trace LEU/UL (Negative); Nitrate Urine Negative (Negative); Non Pathogenic Casts 0-2; Specific Grav Ur 1.008 (1.001-1.035)
[2025-04-02 18:23] LABS: Total Protein Urine Random 19 mg/dL; Ur Ttl Prot Creatinine Ratio 0.48 mg/mg (0-0.20)
== END 2025-04-02 18:55 | disposition home or self-care (01) ==
LOC: ANHOBOP 17:05 → ANHOBPP 17:07
PROVIDERS: Visit Provider Obstetrics & Gynecology
DX: O13.9 Gestational [pregnancy-induced] hypertension without significant proteinuria, unspecified trimester (principal); Z3A.00 Weeks of gestation of pregnancy not specified
CPT/HCPCS: 36415; 59025; 80053; 81001; 82570; 84156; 84550; 85025; 99199

== ENCOUNTER 2025-04-04 11:08 | Outpatient (NON) | payer OTHER, SELFPAY ==
[2025-04-04 11:35] LABS: Total Volume 24 Hour Urine 1500 ml
[2025-04-04 11:36] LABS: Total Volume 24 Hour Urine 1500 ml
[2025-04-04 11:57] LABS: Creatinine 24 Hour Urine 0.8 gm/24 (0.8-1.8); Total Protein Urine 24 Hr 180 mg/24hr (28-141); Total Protein Urine Random 12 mg/dL
== END 2025-04-04 11:09 | disposition home or self-care (01) ==
LOC: ANHLAB 11:09
PROVIDERS: Visit Provider Obstetrics & Gynecology
DX: O16.3 Unspecified maternal hypertension, third trimester (principal); Z3A.00 Weeks of gestation of pregnancy not specified
CPT/HCPCS: 81050; 82570; 84156

== ENCOUNTER 2025-04-05 12:31 | Outpatient (RCR) | payer OTHER, SELFPAY ==
--- NOTE | ~2025-04-05 | US_ITS ---
EXAMINATION: US OB BPP wo non-stress DATE: 04/05/2025 14:02 INDICATION: preeclampsia . TECHNIQUE: Real-time ultrasound of the pelvis was performed. COMPARISON: None. FINDINGS: There is a single living fetus in vertex presentation, longitudinal lie. The placenta is anterior. F etal heart rate is 135 bpm. The amniotic fluid index is 11.7 cm, which is normal (5th to 95th percent ile is 7.5 to 24.4 cm). Biophysical profile performed by the technologist: breathing (30 sec sustained breathing in 30 minutes): 2 out of 2. movement (3 gross body movements in 30 minutes: 2 out of 2. tone (one episode of ytslbel-giuoxzsii-ycrjjnk limb movement): 2 out of 2. Amniotic fluid pocket (2 cm): 2 out of 2. Total score: 8 out of 8. IMPRESSION: Single living fetus in vertex presentation. Biophysical profile 8 out of 8. Amniotic fluid volume is numerically within normal limits but appears subjectively low. Reviewed, dictated and finalized at location K. IMPRESSION: Single living fetus in vertex presentation. Biophysical profile 8 out of 8. Amniotic fluid volume is numerically within normal limits but appears subjectiv stfefi low.
[2025-04-05 14:02] VITALS: BP 125/81; PULSE 103
== END 2025-04-12 10:55 | disposition home or self-care (01) ==
LOC: ANHOBOP 12:31
PROVIDERS: Visit Provider Obstetrics & Gynecology
DX: O14.93 Unspecified pre-eclampsia, third trimester (principal); Z3A.36 36 weeks gestation of pregnancy
CPT/HCPCS: 59025; 76819

== ENCOUNTER 2025-04-07 16:47 | Inpatient (IN) | payer OTHER, SELFPAY ==
[2025-04-07 17:14] VITALS: BP 119/81; PULSE 99
[2025-04-07 17:15] VITALS: BP 125/83; PULSE 103
[2025-04-07 17:39] VITALS: BMI 31.5
[2025-04-07 17:47] LABS: Hematocrit 38.1 % (37.0-47.0); Hemoglobin 12.8 g/dL (12.0-15.0); Immature Granulocyte Percent A 4.0 % (0-0.5); Lymphocytes Absolute Auto 2.60 K/mm3 (0.9-3.2); Mean Corpuscular HGB Conc 33.6 g/dl (32-36); Mean Corpuscular Hemoglobin 31.4 pg (26-34); Mean Corpuscular Volume 93.4 fl (80-100); Nucleated Red Blood Cells Absolute Auto 0.000 K/mm3 (0.0-0.012); Nucleated Red Blood Cells Perc 0.0 % (0.0-0.2); Platelet Count Result 333 k/mm3 (150-375); Red Blood Count 4.08 M/mm3 (4.2-5.4); White Blood Count 16.7 K/mm3 (4.5-10.0)
[2025-04-07 17:57] LABS: Alanine Aminotransferase 16 U/L (6-35); Albumin Level 3.7 g/dL (3.5-5.1); Alkaline Phosphatase 134 U/L (38-126); Anion Gap 7 mmol/L (4-12); Aspartate Amino Transferase 27 U/L (14-36); Bilirubin,Total 0.2 mg/dL (0.2-1.3); Blood Urea Nitrogen 6 mg/dL (7-17); Calcium 9.1 mg/dL (8.4-10.2); Carbon Dioxide 22 mmol/L (22-30); Chloride 107 mmol/L (98-107); Estimated Glomerular Filt Rate > 60; Glucose 73 mg/dL (65-110); Potassium 4.1 mmol/L (3.4-5.0); Sodium 136 mmol/L (137-145); Total Protein 7.2 g/dL (6.3-8.2)
[2025-04-07 18:30] VITALS: TEMP 36.6
[2025-04-07 18:30] LABS: Syphilis IgG/IgM Antibody Non-Reactive (Nonreactive)
[2025-04-07] MEDS: ceFAZolin 2 GM in SODIUM CHLORIDE 0.9% IV 50 ML 100 ML IVPB (19:13)
[2025-04-07] MEDS: LACTATED RINGERS 1,000 ML 125 ML IV CONT (19:14)
[2025-04-07] MEDS: DINOPROSTONE 10 MG VAG INSERT VAGINAL (19:14)
--- NOTE | 2025-04-07 21:23 | WPDANESEPP ---
Anes - Eval Pre Procedure Procedure: labor epidural Date/Time: 04/07/25 21:23 Surgeon: juma Preop Diagnosis: pain during labor Pre Op Diagnosis: iol Patient Data Age: 29 Gender: F Height: 1.65 m Weight: 86 kg Last Vital Signs Pulse 103 H 04/07/25 17:15 BP 125/83 04/07/25 17:15 O2 Del Method Room Air 04/07/25 17:39 Allergies Allergy/AdvReac Type Severity Reaction Status Date / Time amoxicillin (From Augmentin) Allergy Intermediate Rash Verified 04/07/25 17:28 clavulanic acid (From Allergy Intermediate Rash Verified 04/07/25 17:28 Augmentin) morphine Allergy Intermediate Rash Verified 04/07/25 17:28 Penicillins Allergy Mild Rash Verified 04/07/25 17:28 Home Medications ?Medication ?Instructions ?Recorded ?Confirmed ?Type docosahexaenoic acid 200 mg mg PO 09/18/24 03/31/25 History capsule ( DHA) aspirin 81 mg tablet,delayed 162 mg PO DAILY 11/11/24 03/31/25 History release (Adult Low Dose Aspirin) calcium carbonate (Tums) 200 mg PO BID 01/06/25 03/31/25 History Laboratory Tests 04/07/25 04/07/25 17:28 17:29 WBC 16.7 H K/mm3 (4.5-10.0) RBC 4.08 L M/mm3 (4.2-5.4) Hgb 12.8 g/dL (12.0-15.0) Hct 38.1 % (37.0-47.0) MCV 93.4 fl (80-100) MCH 31.4 pg (26-34) MCHC 33.6 g/dl (32-36) RDW 13.5 % (11.5-14.5) Plt Count 333 k/mm3 (150-375) MPV 10.6 H fl (7.4-10.4) Immature Gran % (Auto) 4.0 H % (0-0.5) Neut % (Auto) 68.6 % (45.5-73.1) Lymph % (Auto) 15.6 L % (18.3-44.2) [place] % (Auto) 8.4 % (2.6-8.5) Eos % (Auto) 2.9 % (0-4.4) Baso % (Auto) 0.5 % (0.2-1.2) Lymph # (Auto) 2.60 K/mm3 (0.9-3.2) [place] # (Auto) 1.4 H K/mm3 (0.1-0.6) Eos # (Auto) 0.5 H K/mm3 (0-0.3) Baso # (Auto) 0.1 K/mm3 (0.0-0.1) Abs Immat Gran (auto) 0.66 H K/mm3 (0.00-0.031) Absolute Neuts (auto) 11.5 H K/mm3 (1.3-6.7) Absolute Nucleated RBC 0.000 K/mm3 (0.0-0.012) Nucleated RBC % 0.0 % (0.0-0.2) Sodium 136 L mmol/L (137-145) Potassium 4.1 mmol/L (3.4-5.0) Chloride 107 mmol/L (98-107) Carbon Dioxide 22 mmol/L (22-30) Anion Gap 7 mmol/L (4-12) BUN 6 L mg/dL (7-17) Creatinine 0.49 L mg/dL (0.7-1.0) Estim Creat Clear Calc Not Reportable Estimated GFR > 60 (59 - ) Glucose 73 mg/dL (65-110) Calcium 9.1 mg/dL (8.4-10.2) Total Bilirubin 0.2 mg/dL (0.2-1.3) AST 27 U/L (14-36) ALT 16 U/L (6-35) Alkaline Phosphatase 134 H U/L (38-126) Total Protein 7.2 g/dL (6.3-8.2) Albumin 3.7 g/dL (3.5-5.1) Syphilis IgG/IgM Ab Non-reactive (Nonreactive) Blood Type A Positive Antibody Screen Negative Patient hx anesthesia problems: none Family hx anesthesia problems: none Results Review: All pre-operative results and documents have been reviewed as part of the pre-operative evaluation. [facility] Past Medical History Medical History Palpitations Suppression of menses Psoriasis Hypertension Asthma Surgical History Surgical History [place] teeth removed History of tonsillectomy and adenoidectomy Family History Family History Other Hypertension Thyroid disease Social History Social History Smoking status: Former smoker Tobacco type: e-cigarettes/vaping Alcohol intake: former Alcohol use details: socially Substance use: never Substance use type: does not use Lack of Transportation: No Lack of Food: Never True Current Housing: I Have Housing Concerned About Future Housing: No Difficulty Paying Gas/Electric Bills: No Difficulty Paying for Meds: No Currently Unemployed: No Education: High School Diploma/GED Difficulty w/ Childcare or Family Care: No Living arrangements: with family Occupation/Education: occupation 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
[2025-04-07 21:52] VITALS: BP 113/70; PULSE 80
[2025-04-07 22:30] VITALS: TEMP 36.6
[2025-04-07 23:10] VITALS: BP 110/61; PULSE 75
[2025-04-08] VITALS (132 sets, daily range): BP systolic 81–150; BP diastolic 51–103; PULSE 75–217; RESP 16; TEMP 36.6–37.7; O2SAT 92–100
[2025-04-08] MEDS: ceFAZolin 1 GM in SODIUM CHLORIDE 0.9% IV 50 ML 100 ML IVPB ×2 (03:56→11:51)
--- NOTE | 2025-04-08 07:43 | P.HP_ITS ---
H&P: HPI History of Present Illness Date/Time: 04/08/25 06:53 Chief Complaint: induction of labor Narrative: Mary is a 29yo @ 37.2 who presented overnight for medical IOL. She has a h/o pre-eclampsia with her first but has been on ASA. She started developing elevated blood pressures and had a P/C ratio of 0.48. Her is complicated by: - H/o pre-eclampsia w/ SF and PTD @ 35wks -- ASA 162mg qhs - Pre-eclampsia w/o severe features; p/c 0.48 - gbs positive Review of Systems Constitutional: Constitutional: Denies chills, Denies fever(s) and Denies headache(s) Eyes: Eyes: Denies change in vision ENT: Denies headache(s) Cardiovascular: Cardiovascular: Denies chest pain and Denies dyspnea Respiratory: Respiratory: Denies dyspnea Genitourinary: Genitourinary: Denies abnormal vaginal bleeding and Denies vaginal discharge Neurologic: Denies headache(s) Psychiatric: Psychiatric: Denies anxiety and Denies depression [facility] Past Medical History Medical History Palpitations Suppression of menses Psoriasis Hypertension Asthma Surgical History Surgical History [place] teeth removed History of tonsillectomy and adenoidectomy Family History Family History Other Hypertension Thyroid disease Social History Social History Smoking status: Former smoker Tobacco type: e-cigarettes/vaping Alcohol intake: former Alcohol use details: socially Substance use: never Substance use type: does not use Lack of Transportation: No Lack of Food: Never True Current Housing: I Have Housing Concerned About Future Housing: No Difficulty Paying Gas/Electric Bills: No Difficulty Paying for Meds: No Currently Unemployed: No Education: High School Diploma/GED Difficulty w/ Childcare or Family Care: No Living arrangements: with family Occupation/Education: occupation 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 Gender identity (if verbalized by the patient): Female Sexual Orientation (if Verbalized by the Patient): Straight or Heterosexual Spiritual care concerns: No Meds Home Medications and Allergies Home Medications ?Medication ?Instructions ?Recorded ?Confirmed ?Type docosahexaenoic acid 200 mg mg PO 09/18/24 03/31/25 History capsule ( DHA) aspirin 81 mg tablet,delayed 162 mg PO DAILY 11/11/24 03/31/25 History release (Adult Low Dose Aspirin) calcium carbonate (Tums) 200 mg PO BID 01/06/25 03/31/25 History Allergies Allergy/AdvReac Type Severity Reaction Status Date / Time amoxicillin (From Augmentin) Allergy Intermediate Rash Verified 04/07/25 17:28 clavulanic acid (From Allergy Intermediate Rash Verified 04/07/25 17:28 Augmentin) morphine Allergy Intermediate Rash Verified 04/07/25 17:28 Penicillins Allergy Mild Rash Verified 04/07/25 17:28 Vital Signs Vital Signs - 24 hr 04/07/25 17:14 04/07/25 17:15 04/07/25 17:39 Temperature Pulse Rate 99 103 H Blood Pressure 119/81 125/83 Oxygen Delivery Room Air 04/07/25 18:30 04/07/25 21:52 04/07/25 22:30 Temperature 97.9 F 97.9 F Pulse Rate 80 Blood Pressure 113/70 Oxygen Delivery 04/07/25 23:10 04/08/25 00:00 04/08/25 00:30 Temperature 98 F 97.9 F Pulse Rate 75 Blood Pressure 110/61 Oxygen Delivery 04/08/25 02:50 04/08/25 03:00 04/08/25 03:59 Temperature 97.8 F Pulse Rate 80 90 Blood Pressure 118/80 124/66 Oxygen Delivery 04/08/25 04:00 Temperature 97.9 F Pulse Rate Blood Pressure Oxygen Delivery Exam Const: General: cooperative, no acute distress and obese Nutritional Appearance: obese Orientation/consciousness: patient oriented x3 Resp: Effort & Inspection: normal respiratory effort Cardio: Rate: regular rate GI: GI Palp: No abdominal tenderness : Other: FHT's: 130's/ mod june/ + accels/ no decels - cat 1 TOCO: ctxs q2-4min Cervix: 3.5/50/-2 Membranes: AROM, clear 0730 Presentation: cephalic Skin: General skin exam: normal color Neuro: General: patient oriented x3 Extrem: General: normal to inspection Psych: Appearance: grossly normal Affect: normal affect Attitude: cooperative H&P: Results Labs Labs: Short CBC 04/07/25 Range/Units 17:28 WBC 16.7 H (4.5-10.0) K/mm3 Hgb 12.8 (12.0-15.0) g/dL Hct 38.1 (37.0-47.0) % Plt Count 333 (150-375) k/mm3 BMP 04/07/25 17:29 Sodium 136 L Potassium 4.1 Chloride 107 Carbon Dioxide 22 BUN 6 L Creatinine 0.49 L Glucose 73 Calcium 9.1 Liver Function 04/07/25 Range/Units 17:29 Total Bilirubin 0.2 (0.2-1.3) mg/dL AST 27 (14-36) U/L ALT 16 (6-35) U/L Alkaline Phosphatase 134 H (38-126) U/L Albumin 3.7 (3.5-5.1) g/dL Assessment and Plan Assessment and plan (1) Pre-eclampsia: Code(s): O14.90 - Unspecified pre-eclampsia, unspecified trimester Status: Acute Plan - Admitted overnight for induction of labor; risks and benefits discussed - s/p cervidil overnight; cervix favorable - AROM, clear @ 0730 - Low dose pitocin per protocol - Continuous monitoring - GBS positive; ancef - Anesthesia consult PRN pain
[2025-04-08] MEDS: LACTATED RINGERS 1,000 ML 125 ML IV CONT (09:04)
[2025-04-08] MEDS: OXYTOCIN 30 UNITS/NS 500 ML 30 UNITS/500 ML BAG IV CONT (10:58)
--- NOTE | 2025-04-08 12:14 | PM.OBPNLAB ---
Pain Control Date/time seen: 04/08/25 12:14 Pain control: epidural Pelvic Exam Dilation (cm): 7 Effacement (%): 80 station: 0 Amniotic membrane status: Ruptured Contractions Monitor mode: Internal Contraction frequency: 2 (-3) Contraction intensity: Moderate Status status: Category l Assessment and Plan Pitocin rate (mU/min): 4 Assessment: active labor Plan: continuous present management
[2025-04-08] MEDS: ONDANSETRON INJ 4 MG/2 ML VIAL IV PUSH (12:58)
[2025-04-08] MEDS: OXYTOCIN 10 UNITS/ML VIAL IM (14:15)
--- NOTE | 2025-04-08 14:30 | PM.OBPRVD ---
OB - Vaginal Delivery Note Procedure Delivery date: 04/08/25 Events: Positive Group B Strep (GBS) and Preeclampsia w/o severe features Induction method: Per Misoprostol Protocol Delivery augmentation: Rupture of Membranes and Pitocin Delivery monitor: External FHT and Internal Uterine Route of delivery: Episiotomy description: None Laceration Description: Perineal - 1st Degree Delivery repair: vicryl Specimen: Yes (placenta) Quantitative Blood Loss (ml): 250 Anesthesia type: Epidural Disposition: Floor Complications: No immediate complications [place] Baby Date of : 04/08/25 Time of : 14:07 Gestational Age by Date: 37 (.2) Infant gender: Male Weight (pounds): 7 Weight (ounces): 0 presentation: vertex Placenta delivery description: Expressed Cord Vessel Description: Nuchal Cord, Tight and Delayed Cord Clamping score one minute: 9 score five minutes: 9 Narrative: Mary rapidly progressed to complete dilation with strong desire to push. She pushed for approximately 10-15 minutes with good maternal effort. She delivered the head over intact perineum. Nuchal cord was noted but was delivered through. She easily delivered the 's shoulders and body without complication. The was immediately placed skin to skin and had spontaneous cry. His mouth and nose were bulb suction with a pedi nurse. Delayed cord clamping was performed. The umbilical cord was then doubly clamped and was cut by dad. A segment of cord was collected for cord gases. The remaining cord blood was collected for typing. We began infusing Pitocin but was noted with her IV was infiltrated, therefore she was given Pitocin 10 mg IM. With gentle downward traction on the cord, the placenta delivered without complication. Bimanual massage was performed and good uterine tone with minimal bleeding was noted. She was examined and a small first-degree perineal laceration was identified. The laceration was repaired using 2-0 Vicryl and good reapproximation with minimal bleeding was noted. Bimanual massage was once again performed and slight atony was noted but after uterine sweep and small clots removed the uterus was then noted to be firm with minimal bleeding. Sponge, lap, instrument, and needle counts were correct at the end of procedure. Mom and baby were left bonding in the birthing suite in stable condition.
--- NOTE | 2025-04-08 15:30 | S_PTH ---
PATIENT: Mary Mosquera LOC: [facility] U#:[id number] AGE/SX: 29/F ROOM: 279 RE04/07/[address]: Betsy Gomez MD : 1995 BED: 00 DIS: 04/10/2025 SPEC #: [id number] RECD: 04/09/25 14:17 STATUS: ARVIN REQ #: [id number] LYDIA: 04/08/25 15:[address]: Betsy Gomez DEPT: [facility] Surgical RECD BY: Jenna Rodriguez ENTERED: 04/09/25 14:18 SP TYPE: Surgical OTHR DR: MINES INSPECTOR PHYSICIAN Tissues: A - Placenta Procedures: Hematoxylin and Eosin Stain Gross and Microscopic Level 5
[2025-04-08] MEDS: TRANEXAMIC ACID 1,000MG/ISO100 1,000 MG/100 ML BAG 200 MG IVPB (17:07)
[2025-04-08 17:17] LABS: Hematocrit 33.6 % (37.0-47.0); Hemoglobin 11.1 g/dL (12.0-15.0); Immature Granulocyte Percent A 1.5 % (0-0.5); Lymphocytes Absolute Auto 1.94 K/mm3 (0.9-3.2); Mean Corpuscular HGB Conc 33.0 g/dl (32-36); Mean Corpuscular Hemoglobin 31.0 pg (26-34); Mean Corpuscular Volume 93.9 fl (80-100); Nucleated Red Blood Cells Absolute Auto 0.000 K/mm3 (0.0-0.012); Nucleated Red Blood Cells Perc 0.0 % (0.0-0.2); Platelet Count Result 330 k/mm3 (150-375); Red Blood Count 3.58 M/mm3 (4.2-5.4); White Blood Count 23.0 K/mm3 (4.5-10.0)
[2025-04-08] MEDS: OXYTOCIN 30 UNITS/NS 500 ML 30 UNITS/500 ML BAG 125 UNITS (17:18)
--- NOTE | 2025-04-08 17:31 | P.PNOB_ITS ---
OB - PN: Subj Subjective Date/time seen: 04/08/25 17:31 called due to continued bleeding... Exam reveals clots in fundus, removed. Cass placed without difficulty. TXA infusing. Continue to monitor Ancef due to significant manipulation Cass in place Abad placed Will remove in am. OB - PN: Obj Data Labs 04/07/25 17:28 04/07/25 17:29 Labs: Laboratory Results - last 24 hr 04/07/25 04/07/25 17:28 17:29 WBC 16.7 H RBC 4.08 L Hgb 12.8 Hct 38.1 MCV 93.4 MCH 31.4 MCHC 33.6 RDW 13.5 Plt Count 333 MPV 10.6 H Immature Gran % (Auto) 4.0 H Neut % (Auto) 68.6 Lymph % (Auto) 15.6 L [place] % (Auto) 8.4 Eos % (Auto) 2.9 Baso % (Auto) 0.5 Lymph # (Auto) 2.60 [place] # (Auto) 1.4 H Eos # (Auto) 0.5 H Baso # (Auto) 0.1 Abs Immat Gran (auto) 0.66 H Absolute Neuts (auto) 11.5 H Absolute Nucleated RBC 0.000 Nucleated RBC % 0.0 Sodium 136 L Potassium 4.1 Chloride 107 Carbon Dioxide 22 Anion Gap 7 BUN 6 L Creatinine 0.49 L Estim Creat Clear Calc Not Reportable Estimated GFR > 60 Glucose 73 Calcium 9.1 Total Bilirubin 0.2 AST 27 ALT 16 Alkaline Phosphatase 134 H Total Protein 7.2 Albumin 3.7 Syphilis IgG/IgM Ab Non-reactive Blood Type A Positive Antibody Screen Negative OB - PN A/P Time Spent With Patient Time: Total time spent is greater than 50% in coordination of care (as documented) at patient's floor/unit and/or counseling patient:
[2025-04-08 17:34] LABS: INR 1.0; Prothrombin Time 13.6 Seconds (11.1-14.7)
[2025-04-08 17:35] LABS: Partial Thromboplastin Time 27.7 Seconds (22.3-36.8)
[2025-04-08] MEDS: IBUPROFEN 600 MG TABLET (17:48)
[2025-04-08] MEDS: ACETAMINOPHEN 325 MG TABLET 650 MG (17:48)
[2025-04-08] MEDS: ceFAZolin 2 GM in SODIUM CHLORIDE 0.9% IV 50 ML 100 ML IVPB (17:50)
--- NOTE | 2025-04-08 20:05 | OBPPTRN ---
Patient transferred to post room #279 via wheelchair. Support person present. Oriented to unit, room, information board, rooming in, admission packet and security measures. Patient verbalizes understanding.
[2025-04-08] MEDS: OXYTOCIN 30 UNITS/NS 500 ML 30 UNITS/500 ML BAG 125 UNITS IV CONT (21:45)
[2025-04-09] VITALS (7 sets, daily range): BP systolic 106–131; BP diastolic 65–93; PULSE 83–112; RESP 16–18; TEMP 36.6–37.3; O2SAT 97–100
[2025-04-09] MEDS: ACETAMINOPHEN 325 MG TABLET 650 MG PO ×2 (01:22→17:12)
[2025-04-09] MEDS: IBUPROFEN 600 MG TABLET PO ×2 (01:23→16:06)
--- NOTE | 2025-04-09 01:51 | PC.NURSE ---
patient called out ~0115 stating it felt like it fell out (referring to the antoine in place). RN assessed pt, fundus at U firm, small flow, antoine in place. Same amount of blood in tubing as previously assessed at 00. Suction still on and set to 80.
[2025-04-09 05:45] LABS: Hematocrit 26.1 % (37.0-47.0); Hemoglobin 8.8 g/dL (12.0-15.0); Mean Corpuscular HGB Conc 33.7 g/dl (32-36); Mean Corpuscular Hemoglobin 32.0 pg (26-34); Mean Corpuscular Volume 94.9 fl (80-100); Platelet Count Result 245 k/mm3 (150-375); Red Blood Count 2.75 M/mm3 (4.2-5.4); White Blood Count 18.8 K/mm3 (4.5-10.0)
[2025-04-09 05:59] LABS: Alanine Aminotransferase 13 U/L (6-35); Albumin Level 2.4 g/dL (3.5-5.1); Alkaline Phosphatase 94 U/L (38-126); Anion Gap 5 mmol/L (4-12); Aspartate Amino Transferase 29 U/L (14-36); Bilirubin,Total < 0.1 mg/dL (0.2-1.3); Blood Urea Nitrogen 5 mg/dL (7-17); Calcium 8.1 mg/dL (8.4-10.2); Carbon Dioxide 18 mmol/L (22-30); Chloride 108 mmol/L (98-107); Estimated CRCL calculation 149 ml/min; Estimated Glomerular Filt Rate > 60; Glucose 78 mg/dL (65-110); Potassium 3.4 mmol/L (3.4-5.0); Sodium 131 mmol/L (137-145); Total Protein 4.9 g/dL (6.3-8.2)
--- NOTE | 2025-04-09 07:16 | P.PNOB_ITS ---
OB - PN: Subj Subjective Date/time seen: 04/09/25 07:15 Narrative: PPD#1 Mary reports doing well today. She still has the Cass in place; no bleeding around. Ortiz is still in place. Her pain is controlled. She has sat up in bed w/o symptoms of anemia. She is tolerating regular diet and passed gas. She is breast and bottle feeding. She would like her son circumcised. OB - PN: Obj Data Labs 04/09/25 05:21 04/09/25 05:21 Labs: Laboratory Results - last 24 hr 04/08/25 17:11 WBC 23.0 H RBC 3.58 L Hgb 11.1 L Hct 33.6 L MCV 93.9 MCH 31.0 MCHC 33.0 RDW 13.6 Plt Count 330 MPV 11.0 H Immature Gran % (Auto) 1.5 H Neut % (Auto) 82.7 H Lymph % (Auto) 8.5 L [place] % (Auto) 6.5 Eos % (Auto) 0.4 Baso % (Auto) 0.4 Lymph # (Auto) 1.94 [place] # (Auto) 1.5 H Eos # (Auto) 0.1 Baso # (Auto) 0.1 Abs Immat Gran (auto) 0.34 H Absolute Neuts (auto) 19.0 H Absolute Nucleated RBC 0.000 Nucleated RBC % 0.0 PT 13.6 INR 1.0 APTT 27.7 OB - PN A/P Assessment and Plan (1) Normal vaginal delivery of second : Code(s): O80 - Encounter for full-term uncomplicated delivery Status: Acute (2) hemorrhage: Code(s): O72.1 - Other immediate hemorrhage Status: Acute (3) Pre-eclampsia: Code(s): O14.90 - Unspecified pre-eclampsia, unspecified trimester Status: Acute Plan day: 1 Plan: routine care Comments: - PO pain meds - Regular diet - Ambulation and hydration encouraged - Continue putting baby to breast q2-3hr - PPH: 1,620cc - s/p cytotec 1000mg, TXA, Cass placement, Ancef 2g IV q24h - continue pitocin 125ml until 0600 on 04/09/25 - Cass has been in place 12+ hours; suction off/balloon deflated for >30 min and no bleeding; so Cass removed 04/09/25 AM - ortiz also removed after cass removal - venofer 500mg IV once - Pre-eclampsia: bps in normal/moderate range, asymptomatic, labs stable Time Spent With Patient Time: Total time spent is greater than 50% in coordination of care (as documented) at patient's floor/unit and/or counseling patient: Review of Systems 2 Constitutional: Constitutional: Denies chills, Denies fever(s) and Denies headache(s) Eyes: Eyes: Denies change in vision ENT: Denies dizziness and Denies headache(s) Cardiovascular: Cardiovascular: Denies chest pain, Denies palpitations and Denies dyspnea Respiratory: Respiratory: Denies cough and Denies dyspnea Gastrointestinal: Gastrointestinal: Denies nausea and Denies vomiting Neurologic: Denies dizziness and Denies headache(s) Endocrine: Endocrine: Denies palpitations Exam 2 Const: General: cooperative, comfortable and no acute distress O rientation/consciousness: patient oriented x3 Resp: Effort & Inspection: normal respiratory effort Auscultation: clear to auscultation bilaterally Cardio: Rate: regular rate GI: Inspection: non-distended GI Palp: No abdominal tenderness and Yes Soft to palpation Auscultation: normal bowel sounds : Other: fundus firm Skin: General skin exam: normal color Neuro: General: patient oriented x3 Extrem: General: normal to inspection Psych: Appearance: grossly normal Affect: normal affect Attitude: c ooperative
--- NOTE | 2025-04-09 07:55 | WPDANLDPN2 ---
Anes-Prog Note L&D Date/Time: 04/09/25 07:55 Neuro status: Neuro function grossly intact. Cardiovascular status: normal Respiratory status: normal Airway patency: baseline Mental status: baseline Post-Op hydration status: normal Vital Signs: Last Vital Signs Temp 36.9 C 04/09/25 04:00 Pulse 91 04/09/25 04:00 Resp 16 04/09/25 04:00 BP 110/69 04/09/25 04:00 Pulse Ox 97 04/09/25 04:00 O2 Del Method Room Air 04/07/25 17:39 Pain score (VAS): 0 I/O: Intake & Output 04/08/25 04/08/25 04/09/25 15:59 23:59 07:59 Intake Total 1500 Output Total 250 1370 750 Balance -250 -1370 750 Post-procedural complaints: none Patient feedback: Patient satisfied with anesthetic care.
[2025-04-09] MEDS: IRON SUCROSE COMPLEX 400 MG, IRON SUCROSE COMPLEX 100 MG in SODIUM CHLORIDE 0.9% IV 250 ML 78.57 MG IVPB (09:50)
--- NOTE | 2025-04-09 17:44 | PC.NURSE ---
1208. Introductions were made, then consulted with patient to assess needs related to . Discussed with mother her plans to feed her and the experience so far. Mom had a very large PPH with this delivery. She is currently pumping and bottle feeding. She reports she would like to attempt at the breast some but she has not been ready to so far due to her complications after delivery. She has a hand pump and reports using that regularly. She has pumped 2 ml of colostrum for her infant in the last hour. It was noted that has a recessed chin. Mom states she plans to bottle feed and pump when she gets home. Mom was encouraged to call for help if she would like help latching to the breast. Resources provided for inpatient and outpatient services with the feeding sheet, mom/baby guide and name written on the communication board. Mother voiced understanding of information and will call if there is a request for assistance. Reported to the Primary RN.?
[2025-04-10 00:06] VITALS: BP 121/71; PULSE 91; RESP 18; TEMP 36.7; O2SAT 100
[2025-04-10 04:29] VITALS: BP 104/70; PULSE 92; RESP 18; TEMP 36.8; O2SAT 98
[2025-04-10] MEDS: DOCUSATE SODIUM 100 MG CAPSULE PO (07:00)
[2025-04-10] MEDS: MULTIVIT/MIN/PREN/FOL AC/IRON TABLET 1 TAB PO (07:00)
--- NOTE | 2025-04-10 07:22 | P.DS_ITS ---
DS: Admitting Diagnosis Discharge Date 04/10/25 Admitting Diagnosis pre-eclampsia GBS+ DS: Discharge Diagnosis Discharge Diagnosis (1) Normal vaginal delivery of second : Code(s): O80 - Encounter for full-term uncomplicated delivery Status: Acute (2) Pre-eclampsia: Code(s): O14.90 - Unspecified pre-eclampsia, unspecified trimester Status: Acute (3) hemorrhage: Code(s): O72.1 - Other immediate hemorrhage Status: Acute OB - DS: Summary OB Procedures : NST, PIH Mgmt and Ultrasound OB Procedures Intrapartum: Spontaneous Vag Delivery OB Procedures: : Other (Venofer 500mg IV once) Peripartum Data Delivery Method: Natural Vaginal Laceration Description: Perineal - 1st Degree Episiotomy description: None complications: uterine atony (s/p Cass device) [place] 1: Gender: Male Disposition of : home Status at Discharge Functional status at discharge: independent ambulation Overall status at discharge: patient is back to baseline Time Spent with Patient Time attestation: Total time spent providing and/or coordinating discharge services: Exam Const: General: cooperative, healthy appearing, comfortable and no acute distress Orientation/consciousness: patient oriented x3 Resp: Effort & Inspection: normal respiratory effort Auscultation: clear to auscultation bilaterally Cardio: Rate: regular rate GI: Inspection: non-distended GI Palp: No abdominal tenderness and Yes Soft to palpation Auscultation: normal bowel sounds : Other: fundus firm Skin: General skin exam: normal color Neuro: General: patient oriented x3 Extrem: General: normal to inspection Psych: Appearance: grossly normal Affect: normal affect Attitude: cooperative DS: Data Data Completed and Pending Pending studies at discharge: Pending at discharge 04/08/25 15:30 Surgical [PTH] Routine Labs on day of discharge: Labs from last 24 hours 04/09/25 04/08/25 05:21 17:11 WBC 18.8 H 23.0 H RBC 2.75 L 3.58 L Hgb 8.8 L 11.1 L Hct 26.1 L 33.6 L MCV 94.9 93.9 MCH 32.0 31.0 MCHC 33.7 33.0 RDW 13.7 13.6 Plt Count 245 330 MPV 10.7 H 11.0 H Immature Gran % (Auto) 1.5 H Neut % (Auto) 82.7 H Lymph % (Auto) 8.5 L [place] % (Auto) 6.5 Eos % (Auto) 0.4 Baso % (Auto) 0.4 Lymph # (Auto) 1.94 [place] # (Auto) 1.5 H Eos # (Auto) 0.1 Baso # (Auto) 0.1 Abs Immat Gran (auto) 0.34 H Absolute Neuts (auto) 19.0 H Absolute Nucleated RBC 0.000 Nucleated RBC % 0.0 PT 13.6 INR 1.0 APTT 27.7 Sodium 131 L Potassium 3.4 Chloride 108 H Carbon Dioxide 18 L Anion Gap 5 BUN 5 L Creatinine 0.50 L Estim Creat Clear Calc 149 Estimated GFR > 60 Glucose 78 Calcium 8.1 L Total Bilirubin < 0.1 L AST 29 ALT 13 Alkaline Phosphatase 94 Total Protein 4.9 L Albumin 2.4 L Discharge Plan Discharge Attending physician on discharge: Betsy Gomez Discharging Clinician: Betsy Gomez Anticipated Discharge Date/Time: 04/10/25 10:00 Patient Disposition: Home Activity: may shower and pelvic rest Diet: regular Patient Instructions: Antibiotic Form Patient Language: Bhut[place] Stand Alone Forms: General Discharge Information Follow-up/Referrals: Betsy Gomez MD [Physician] - 4 Weeks Discharge Medications: New acetaminophen 325 mg Tablet 650 mg PO Q6H PRN (Reason: Mild Pain (1-3) Or Headache) Qty: 60 0RF docusate sodium 100 mg Capsule 100 mg PO BID PRN (Reason: Constipation) Qty: 90 0RF ibuprofen 600 mg Tablet 600 mg PO Q6H PRN (Reason: Cramping) Qty: 40 0RF Continued DHA 200 mg capsule PO calcium carbonate [Tums] 200 mg calcium (500 mg) tablet,chewable 200 mg PO BID Discontinued aspirin [Adult Low Dose Aspirin] 81 mg tablet,delayed release (DR/EC) 162 mg PO DAILY Date of admission: 04/07/25 16:47 Primary Care Provider: PHYSICIAN,[employer] Admitting Provider: Betsy Gomez Attending physician on admission: Betsy Gomez Condition: Stable
[2025-04-10] MEDS: LANOLIN (LANSINOH) 7.5 GM CREAM 1 APPLIC TOPICAL (08:47)
[2025-04-10] MEDS: WITCH HAZEL 40 PADS 1 PAD TOPICAL (08:47)
[2025-04-10] MEDS: BENZOCAINE 20% AER SPR (*SP) 56 GM CAN 1 SPRAY TOPICAL (08:47)
[2025-04-10 09:05] VITALS: BP 122/76; PULSE 94; RESP 16; TEMP 37.5; O2SAT 99
[2025-04-10] MEDS: ACETAMINOPHEN 325 MG TABLET 650 MG PO (11:25)
[2025-04-10 12:26] VITALS: BP 123/77; PULSE 90; RESP 16; TEMP 36.8; O2SAT 99
[2025-04-11 08:40] VITALS: BP 133/87; PULSE 99; RESP 16; TEMP 36.8
== END 2025-04-10 14:28 | disposition home or self-care (01) | DRG 768 ==
LOC: ANHLDR 16:54 → ANHOB2 04-08 20:06
PROVIDERS: Admitting Provider Obstetrics & Gynecology; Visit Provider Obstetrics & Gynecology
DX: O14.94 Unspecified pre-eclampsia, complicating childbirth (principal); Z37.0 Single live birth; Z3A.37 37 weeks gestation of pregnancy; O99.824 Streptococcus B carrier state complicating childbirth; O72.1 Other immediate postpartum hemorrhage; O70.0 First degree perineal laceration during delivery; O69.1XX0 Labor and delivery complicated by cord around neck, with compression, not applicable or unspecified
CPT/HCPCS: 36415; 80053; 85025; 85027; 85610; 85730; 86593; 86850; 86900; 86901; 88307; J0690; A9270; J1756; J2405; J2590; J2795; J7050; J7120